=== PATIENT | female | born 1935 | race Caucasian/White ===

== ENCOUNTER 2016-05-12 19:57 | Inpatient (IN) | payer MEDICARE ==
[2016-05-12] VITALS (8 sets, daily range): BP systolic 89–96; BP diastolic 52–58; PULSE 67–103; TEMP 100.6–101.3; O2SAT 93–100
[~2016-05-12] VITALS: Ht 167.6 cm; Wt 85.2 kg
[~2016-05-12 19:57] MED LIST: CARB200 PO; CHLO.12%30; CLON.5 PO; EFFE75CA PO; ESCI20TA PO; LAMI25TA3 PO; LORTA5 PO; METO50CR PO; MIRTA15 PO; OMEP20TA PO; PANT20 PO; PRAV80 PO; REME30TA PO; TRAZ100 PO
[2016-05-12] MEDS ORDERED: SODIUM CHLOR 0.9% 1000 ML INJ 1,000 ML IV SCH (20:05)
[2016-05-12] MEDS ORDERED: SODIUM CHLORIDE 0.9% FLUSH 5 ML FLUSH IVF PRN (20:15)
[2016-05-12] MEDS ORDERED: PANTOPRAZOLE INJ 80 MG in SODIUM CHLORIDE 0.9% INJ 35 ML IV ONE (20:15)
--- NOTE | 2016-05-12 20:17 | PD ---
HPI Chief Complaint: Altered Mental Status Time Seen by Provider: 20:03 Travel History International Travel<30 days: No Contact w/Intl Traveler<30days: No Traveled to known affect area: No History of Present Illness HPI 80-year-old female with history of psychiatric problems, diabetes, GERD, presents to the ER today brought in by EMS because her psychiatric clinic noted that she had missed an appointment, sensitivity to check on her and she was found unresponsive with coffee-ground emesis on her shirt and around her mouth and nose. She was intubated for airway protection. She could not give us any further history. Modifying Factors: None Associated Signs & Symptoms: Coffee-ground emesis, unresponsive, intubated Risk Factors: None PFSH Past Medical History Arthritis: Yes Anxiety: Yes Depression: Yes Cancer: No Cardiovascular Problems: No High Cholesterol: Yes Chest Pain: No Cerebrovascular Accident: No Diabetes: No (Per patient) Endocrine: No GERD: Yes Genitourinary: No (hx of incontinence) Headaches: No Hypertension: Yes Neurologic: No Psychiatric: Yes (depression with suicide attempts) Reproductive: No Respiratory: No Migraines: No Seizures: No Past Surgical History Abdominal Surgery: Yes (HYST, APPENDIX) Appendectomy: Yes Cardiac Surgery: No Gynecologic Surgery: Yes (HYST) Oral Surgery: Yes (TONSILS) Thoracic Surgery: No Social History Alcohol Use: No Tobacco Use: No Substance Use: No Allergies-Medications (Allergen,Severity, Reaction): Coded Allergies: No Known Allergies (Verified , 01/03/16) Reported Meds & Prescriptions Reported Meds & Active Scripts Active Pravastatin Sodium (Pravastatin Sod) 80 Mg Tab 80 Mg PO DAILY Protonix (Pantoprazole Sodium) 20 Mg Tab 20 Mg PO DAILY Mirtazapine 15 Mg Tab 30 Mg PO HS Metoprolol Succinate ER 50 mg (Metoprolol Succinate) 50 Mg Tab 50 Mg PO DAILY Escitalopram Oxalate 20 Mg Tab 20 Mg PO DAILY Klonopin (Clonazepam) 0.5 Mg Tab 0.5 Mg PO HS Tegretol 200 Mg Tab (Carbamazepine) 200 Mg Tab 200 Mg PO HS Reported Peridex Oral Rinse (Chlorhexidine Gluconate) 0.12 % Felicitas DIRECTED Lamictal (Lamotrigine) 25 Mg Tab 25 Mg PO DAILY Pravastatin Sodium (Pravastatin Sod) 80 Mg Tab 80 Mg PO DAILY Metoprolol Succinate ER 50 mg (Metoprolol Succinate) 50 Mg Tab 50 Mg PO DAILY Trazodone Hcl (Trazodone HCl) 100 Mg Tab 200 Mg PO HS Omeprazole 20 mg (Omeprazole) 20 Mg Tab 20 Mg PO DAILY 30 Minutes before a meal Remeron 30 mg (Mirtazapine) 30 Mg Tab 30 Mg PO HS Effexor Xr (Venlafaxine HCl) 75 Mg Cap 75 Mg PO DAILY [place] 5-325 mg (Hydrocodone-Acetaminophen 5-325 mg) 1 Tab 1 Tab PO Q6H PRN Klonopin (Clonazepam) 0.5 Mg Tab 0.5 Mg PO HS Review of Systems ROS Limitations: Intubated (unable to obtain further history), Altered Mental Status Physical Exam Narrative GENERAL: Well-nourished, well-developed elderly white female patient who is obtunded, intubated, coffee ground emesis notable on her shirt and around her lips. SKIN: Warm and dry. HEAD: Normocephalic. EYES: No scleral icterus. No injection or drainage. NECK: Supple, trachea midline. CARDIOVASCULAR: Regular rate and rhythm without murmurs, gallops, or rubs. RESPIRATORY: Breath sounds equal bilaterally. No accessory muscle use. GASTROINTESTINAL: Abdomen soft, nondistended. MUSCULOSKELETAL: No cyanosis, or edema. BACK: Nontender without obvious deformity. No CVA tenderness. Neuro: Patient is unresponsive to painful stimuli, intubated. No gag reflex. Pupils are round, equal, small, poorly responsive to light bilaterally. Face is symmetrical. Data Data Last Documented VS Vital Signs Date Time Temp Pulse Resp B/P Pulse Ox O2 Delivery O2 Flow Rate FiO2 05/12/16 20:23 101.3 101 96/58 98 05/12/16 20:08 Ventilator 05/12/16 19:55 100 Orders Complete Blood Count With Diff (05/12/16 20:05) Comprehensive Metabolic Panel (05/12/16 20:05) Lipase (05/12/16 20:05) Ammonia (05/12/16 20:05) Prothrombin Time / Inr (Pt) (05/12/16 20:05) Act Partial Throm Time (Ptt) (05/12/16 20:05) Urinalysis - C+S If Indicated (05/12/16 20:05) Type And Screen (05/12/16 20:05) Chest, Single Ap (05/12/16 20:05) Ecg Monitoring (05/12/16 20:05) Iv Access Insert/Monitor (05/12/16 20:05) Ng Gastric Tube Insert/Monitor (05/12/16 20:05) Oximetry (05/12/16 20:05) Urinary Catheter Insert/Apply (05/12/16 20:05) Sodium Chlor 0.9% 1000 Ml Inj (Ns 1000 M (05/12/16 20:05) Sodium Chloride 0.9% Flush (Ns Flush) (05/12/16 20:15) Pantoprazole Inj (Protonix Inj) (05/12/16 20:15) Pantoprazole Inj (Protonix Inj) (05/12/16 20:15) Ct Brain W/O Iv Contrast(Rout) (05/12/16 20:46) Sodium Chlor 0.9% 1000 Ml Inj (Ns 1000 M (05/12/16 21:00) Admit Order (Ed Use Only) (05/12/16 21:02) Labs Laboratory Tests Test 05/12/16 05/12/16 20:00 20:10 White Blood Count 10.2 TH/MM3 Red Blood Count 4.73 MIL/MM3 Hemoglobin 12.3 GM/DL Hematocrit 38.6 % Mean Corpuscular Volume 81.6 FL Mean Corpuscular Hemoglobin 26.0 PG Mean Corpuscular Hemoglobin 31.8 % Concent Red Cell Distribution Width 16.4 % Platelet Count 178 TH/MM3 Mean Platelet Volume 9.4 FL Neutrophils (%) (Auto) 89.9 % Lymphocytes (%) (Auto) 3.1 % Monocytes (%) (Auto) 6.8 % Eosinophils (%) (Auto) 0.0 % Basophils (%) (Auto) 0.2 % Neutrophils # (Auto) 9.2 TH/MM3 Lymphocytes # (Auto) 0.3 TH/MM3 Monocytes # (Auto) 0.7 TH/MM3 Eosinophils # (Auto) 0.0 TH/MM3 Basophils # (Auto) 0.0 TH/MM3 CBC Comment DIFF FINAL Differential Comment Prothrombin Time 10.4 SEC Prothromb Time International 0.9 RATIO Ratio Activated Partial 23.4 SEC Thromboplast Time Ammonia 17 MCMOL/L Blood Type AB POSITIVE Antibody Screen NEGATIVE Blood Bank Comment Urine Color YELLOW Urine Turbidity CLEAR Urine pH 5.5 Urine Specific [place] 1.015 Urine Protein NEG mg/dL Urine Glucose (UA) NEG mg/dL Urine Ketones NEG mg/dL Urine Occult Blood NEG Urine Nitrite NEG Urine Bilirubin NEG Urine Urobilinogen LESS THAN 2.0 MG/DL Urine Leukocyte Esterase NEG Urine WBC LESS THAN 1 /hpf Urine Squamous Epithelial <1 /hpf Cells Urine Mucus FEW /lpf Microscopic Urinalysis Comment CULT NOT INDICATED MDM Medical Decision Making Medical Screen Exam Complete: Yes Emergency Medical Condition: Yes Medical Record Reviewed: Yes Interpretation(s) EKG shows normal sinus rhythm at a rate of 99 bpm with no signs of acute ST-T changes. Last [address] 05/12/162045 Signed Impressions: Service Date/Time: Thursday, May 12, 2016 21:05 - CONCLUSION: Negative noncontrast head CT. Finn Mendez MD Chest X-Ray 05/12/162004 Signed Impressions: Service Date/Time: Thursday, May 12, 2016 20:19 - CONCLUSION: Patchy atelectasis/infiltrate throughout the right lung and mild atelectasis of the left lung base. Appropriate position of the endotracheal tube tip. Finn Mendez MD Laboratory Tests Test 05/12/16 05/12/16 20:00 20:10 Mean Corpuscular Hemoglobin 26.0 PG (27.0-34.0) Mean Corpuscular Hemoglobin 31.8 % Concent (32.0-36.0) Neutrophils (%) (Auto) 89.9 % (16.0-70.0) Lymphocytes (%) (Auto) 3.1 % (9.0-44.0) Neutrophils # (Auto) 9.2 TH/MM3 (1.8-7.7) Lymphocytes # (Auto) 0.3 TH/MM3 (1.0-4.8) Activated Partial 23.4 SEC Thromboplast Time (24.3-30.1) Urine Mucus FEW /lpf (OCC) Differential Diagnosis Coffee-ground emesis, unresponsive, intubatedGI bleed versus coagulopathy versus peptic ulcer Narrative Course Patient had been intubated by EMS. Chest x-ray ordered to confirm ET tube. She was given IV fluids in the ER. Hemoccult was done on vomitus and it is Hemoccult positive. IV Protonix was given in the ER. Her H&H is stable. At this point, case is discussed with Dr. David for admission. Critical Care Narrative Aggregate critical care time was 30 minutes. Time to perform other separately billable procedures was not included in the critical care time. My time did not include minutes spent treating any other patients simultaneously or on activities that did not directly contribute to the patient's treatment. The services I provided to this patient were to treat and/or prevent clinically significant deterioration that could result in: Worsening GI bleed, cardiopulmonary arrest, I provided critical care services requiring my management, as noted below: Chart data review, documentation time, medication orders and management, vital sign assessments/reviewing monitor data, ordering and reviewing lab tests, ordering and interpreting/reviewing x-rays and diagnostic studies, care of the patient and discussion of the patient with the admitting physicians. HemaPrompt Point of Care Internal Pos. & Neg. Controls: Passed Gastric Specimen Occult Blood: Positive Diagnosis Primary Impression: GI bleeding Additional Impression: Endotracheally intubated Admitting Information Admitting Physician Requests: Admit Chanel Park MD May 12, 2016 20:17
[2016-05-12] MEDS: PANTOPRAZOLE INJ 80 MG in SODIUM CHLORIDE 0.9% INJ 100 ML IV SCH (20:28)
[2016-05-12 20:29] LABS: AUTOMATED NEUTROPHIL # 9.2 TH/MM3 (1.8-7.7); BASOPHIL % 0.2 % (0.0-2.0); HEMATOCRIT 38.6 % (35.0-46.0); HEMO FLAGS DIFF FINAL; LYMPH % 3.1 % (9.0-44.0); LYMPHOCYTE # 0.3 TH/MM3 (1.0-4.8); MEAN CELL VOLUME 81.6 FL (80.0-100.0); MEAN CORPUSCULAR HGB CONC 31.8 % (32.0-36.0); MONO % 6.8 % (0.0-8.0); NEUT % 89.9 % (16.0-70.0); PLATELET COUNT 178 TH/MM3 (150-450); RED BLOOD COUNT 4.73 MIL/MM3 (4.00-5.30); RED CELL DISTRIBUTION WIDTH 16.4 % (11.6-17.2); WHITE BLOOD COUNT 10.2 TH/MM3 (4.0-11.0)
[2016-05-12 20:37] LABS: BLOOD, URINE NEG (NEG); COMMENT (UR) CULT NOT INDICATED; CULTURE IF INDICATED CULT NOT INDICATED; GLUCOSE,URINE NEG (NEG); KETONE, URINE NEG (NEG); MUCUS URINE FEW /lpf (OCC); NITRITE,URINE NEG (NEG); PH, URINE 5.5 (5.0-8.5); SQUAMOUS EPITHELIAL CELL URINE <1 /hpf (0-5); URINE COLOR YELLOW (YELLW/STRAW)
--- NOTE | 2016-05-12 20:45 | RADRPT ---
EXAM DATE/TIME: 05/12/2016 20:19 [facility] COMPARISON: CHEST SINGLE AP, August 10, 2014, 4:01. INDICATIONS : Post intubation. MEDICAL HISTORY : Hypertension. Gastroesophageal reflux disease. SURGICAL HISTORY : None. ENCOUNTER: Initial ACUITY: 1 day PAIN SCORE: Non-responsive. LOCATION: Bilateral chest FINDINGS: Lung volumes are small. There is mild patchy atelectasis/infiltrate throughout the right lung. Mild a telectasis seen at the left lung base. No large effusion. No pneumothorax. Heart size stable, within normal limits. Endotracheal tube tip is about 3.2 cm above the mercedez. CONCLUSION: Patchy atelectasis/infiltrate throughout the right lung and mild atelectasis of the left lung base. A ppropriate position of the endotracheal tube tip. Finn Mendez MD on May 12, 2016 at 20:43 Board Certified Radiologist. This report was verified electronically.
[2016-05-12 20:51] LABS: APTT (PATIENT) 23.4 SEC (24.3-30.1); INTERNATIONAL NORMALIZED RATIO 0.9 RATIO; PROTHROMBIN TIME - PATIENT 10.4 SEC (9.8-11.6)
[2016-05-12] MEDS ORDERED: SODIUM CHLOR 0.9% 1000 ML INJ 1,000 ML IV ONE ×3 (21:00→22:15)
--- NOTE | 2016-05-12 21:16 | RADRPT ---
EXAM DATE/TIME: 05/12/2016 21:05 [facility] COMPARISON: CT BRAIN W/O CONTRAST, August 06, 2014, 12:31. INDICATIONS : Altered mental status; unresponsive; status-post intubation. RADIATION DOSE: 48.36 CTDIvol (mGy) MEDICAL HISTORY : Non-responsive. SURGICAL HISTORY : Non-responsive. ENCOUNTER: Initial ACUITY: 1 day PAIN SCALE: Non-responsive LOCATION: cranial TECHNIQUE: Multiple contiguous axial images were obtained of the head. Using automated exposure control and adj ustment of the mA and/or kV according to patient size, radiation dose was kept as low as reasonably a chievable to obtain optimal diagnostic quality images. FINDINGS: CEREBRUM: The ventricles are normal for age. No evidence of midline shift, mass lesion, hemorrhage or acute in farction. No extra-axial fluid collections are seen. POSTERIOR FOSSA: The cerebellum and brainstem are intact. The 4th ventricle is midline. The cerebellopontine angle i s unremarkable. EXTRACRANIAL: The visualized portion of the orbits is intact. SKULL: The calvaria is intact. No evidence of skull fracture. CONCLUSION: Negative noncontrast head CT. Finn Mendez MD on May 12, 2016 at 21:13 Board Certified Radiologist. This report was verified electronically.
[2016-05-12 21:47] LABS: ALT (GPT) 18 U/L (10-53); ANION GAP 8 MEQ/L (5-15); AST (GOT) 12 U/L (15-37); BICARBONATE 24.4 MEQ/L (21.0-32.0); BLOOD UREA NITROGEN 43 MG/DL (7-18); CHLORIDE 110 MEQ/L (98-107); GLOMERULAR FILTRATION RATE 21 ML/MIN (>89); POTASSIUM 5.1 MEQ/L (3.5-5.1); SODIUM (NA) 142 MEQ/L (136-145)
[2016-05-12 21:50] LABS: ALKALINE PHOSPHATASE 61 U/L (45-117); TOTAL BILIRUBIN ADULT 0.6 MG/DL (0.2-1.0)
[2016-05-12] MEDS: SODIUM CHLOR 0.9% 1000 ML INJ 1,000 ML IV SCH (22:05)
--- NOTE | 2016-05-12 22:09 | HHI.HP ---
HPI Service Critical Care Medicine Primary Care Physician Unknown Admission Diagnosis GI bleed/intubated/altered mental status Diagnosis: Travel History International Travel<30 Days: No Contact w/Intl Traveler <30 Da: No Traveled to Known Affected Are: No History of Present Illness 80-year-old female with history of psychiatric problems and previous attempt of overdose, severe depressions with a first admission to psychiatry at her 20s, diabetes, GERD, presents to the ER brought in by EMS because she had missed an appointment and her psychiatrist was concerned and sent EMS to evaluate her at home. She was found unresponsive with coffee-ground emesis on her shirt and around her mouth and nose. She was intubated for airway protection by EMS and is admitted to ICU now. Review of Systems ROS Unable to obtain patient is sedated and intubated Past Family Social History Allergies: Coded Allergies: No Known Allergies (Verified , 01/03/16) Past Medical History Depressions severe Hypertension Dyslipidemia GERD Diabetes Past Surgical History Unable to obtain patient is sedated and intubated Reported Medications Reported Meds & Active Scripts Active Pravastatin Sodium (Pravastatin Sod) 80 Mg Tab 80 Mg PO DAILY Protonix (Pantoprazole Sodium) 20 Mg Tab 20 Mg PO DAILY Mirtazapine 15 Mg Tab 30 Mg PO HS Metoprolol Succinate ER 50 mg (Metoprolol Succinate) 50 Mg Tab 50 Mg PO DAILY Escitalopram Oxalate 20 Mg Tab 20 Mg PO DAILY Klonopin (Clonazepam) 0.5 Mg Tab 0.5 Mg PO HS Tegretol 200 Mg Tab (Carbamazepine) 200 Mg Tab 200 Mg PO HS Reported Peridex Oral Rinse (Chlorhexidine Gluconate) 0.12 % Felicitas DIRECTED Lamictal (Lamotrigine) 25 Mg Tab 25 Mg PO DAILY Pravastatin Sodium (Pravastatin Sod) 80 Mg Tab 80 Mg PO DAILY Metoprolol Succinate ER 50 mg (Metoprolol Succinate) 50 Mg Tab 50 Mg PO DAILY Trazodone Hcl (Trazodone HCl) 100 Mg Tab 200 Mg PO HS Omeprazole 20 mg (Omeprazole) 20 Mg Tab 20 Mg PO DAILY 30 Minutes before a meal Remeron 30 mg (Mirtazapine) 30 Mg Tab 30 Mg PO HS Effexor Xr (Venlafaxine HCl) 75 Mg Cap 75 Mg PO DAILY [place] 5-325 mg (Hydrocodone-Acetaminophen 5-325 mg) 1 Tab 1 Tab PO Q6H PRN Klonopin (Clonazepam) 0.5 Mg Tab 0.5 Mg PO HS Active Ordered Medications Current Medications Medications (Trade) Dose Ordered Sig/Lenny Route PRN Reason Start Time Stop Time Status Last Admin Dose Admin Pantoprazole Sodium 80 mg/ Sodium Chloride 100 ml @ 10 mls/hr Q10H IV 05/12/16 20:15 05/12/16 20:28 Sodium Chloride (NS 1000 ml Inj) 1,000 ml @ 84 mls/hr [id number] IV 05/12/16 22:05 IV Flush (NS Flush) 2 ml UNSCH PRN IV FLUSH FLUSH AFTER USING IV ACCESS 05/12/16 22:15 IV Flush (NS Flush) 2 ml BID IV FLUSH 05/13/16 09:00 Acetaminophen (Tylenol) 650 mg Q6H PRN PO PAIN 1-10 AND/OR FEVER >101F 05/12/16 22:15 Morphine Sulfate (Morphine Inj) 2 mg Q2H PRN IV PAIN SCALE 6 TO 10 05/12/16 22:15 Pantoprazole Sodium (Protonix Inj) 40 mg Q12H IV 05/12/16 23:00 Lorazepam (Ativan Inj) 1 mg Q1H PRN IV Agitation/Sedation 05/12/16 22:15 Ondansetron HCl (Zofran Inj) 4 mg Q6H PRN IV NAUSEA OR VOMITING 05/12/16 22:15 Metoclopramide HCl (Reglan Inj) 10 mg Q6H PRN IV NAUSEA OR VOMITING 05/12/16 22:15 Docusate Sodium (Colace Liq) 100 mg Q12H G-TUBE 05/12/16 23:00 Miscellaneous Information 1 [id number] 05/12/16 22:15 Chlorhexidine Gluconate (Chlorhexidine 2% Cloth) 3 pack Taper DAILY@04 TOP 05/13/16 04:00 05/09/17 03:59 Chlorhexidine Gluconate 3 pack 3 pack UNSCH PRN TOP HYGIENIC CARE 05/12/16 22:15 Propofol 100 ml @ 0 mls/hr TITRATE IV 05/12/16 22:15 Sodium Chloride 1,000 ml @ 999 mls/hr BOLUS ONCE IV 05/12/16 22:15 05/12/16 23:15 Sodium Chloride (NS 1000 ml Inj) 1,000 ml @ 999 mls/hr BOLUS ONCE IV 05/12/16 22:15 05/12/16 23:15 Family History Unable to obtain Social History Unable to obtain patient is sedated and intubated Physical Exam Vital Signs Vital Signs Date Time Temp Pulse Resp B/P Pulse Ox O2 Delivery O2 Flow Rate FiO2 05/12/16 21:23 101.1 103 91/52 93 05/12/16 21:05 100 100 05/12/16 20:23 101.3 101 96/58 98 05/12/16 20:08 95 Ventilator 05/12/16 20:02 96 05/12/16 19:59 67 89/55 05/12/16 19:55 96 100 05/12/16 19:55 96 100 Physical Exam GENERAL: Well-nourished, well-developed patient. SKIN: Warm and dry. HEAD: Normocephalic. EYES: No scleral icterus. No injection or drainage. NECK: Supple, trachea midline. No JVD or lymphadenopathy. CARDIOVASCULAR: Regular rate and rhythm without murmurs, gallops, or rubs. RESPIRATORY: Breath sounds equal bilaterally. No accessory muscle use. GASTROINTESTINAL: Abdomen soft, non-tender, nondistended. MUSCULOSKELETAL: No cyanosis, or edema. BACK: Nontender without obvious deformity. No CVA tenderness. Laboratory Laboratory Tests Test 05/12/16 05/12/16 20:00 20:10 White Blood Count 10.2 Red Blood Count 4.73 Hemoglobin 12.3 Hematocrit 38.6 Mean Corpuscular Volume 81.6 Mean Corpuscular Hemoglobin 26.0 Mean Corpuscular Hemoglobin 31.8 Concent Red Cell Distribution Width 16.4 Platelet Count 178 Mean Platelet Volume 9.4 Neutrophils (%) (Auto) 89.9 Lymphocytes (%) (Auto) 3.1 Monocytes (%) (Auto) 6.8 Eosinophils (%) (Auto) 0.0 Basophils (%) (Auto) 0.2 Neutrophils # (Auto) 9.2 Lymphocytes # (Auto) 0.3 Monocytes # (Auto) 0.7 Eosinophils # (Auto) 0.0 Basophils # (Auto) 0.0 CBC Comment DIFF FINAL Differential Comment Prothrombin Time 10.4 Prothromb Time International 0.9 Ratio Activated Partial 23.4 Thromboplast Time Sodium Level 142 Potassium Level 5.1 Chloride Level 110 Carbon Dioxide Level 24.4 Anion Gap 8 Blood Urea Nitrogen 43 Creatinine 2.26 Estimat Glomerular Filtration 21 Rate Random Glucose 139 Calcium Level 8.4 Total Bilirubin 0.6 Aspartate Amino Transf 12 (AST/SGOT) Alanine Aminotransferase 18 (ALT/SGPT) Alkaline Phosphatase 61 Ammonia 17 Total Protein 6.3 Albumin 3.3 Lipase 144 Blood Type AB POSITIVE Antibody Screen NEGATIVE Blood Bank Comment Urine Color YELLOW Urine Turbidity CLEAR Urine pH 5.5 Urine Specific [place] 1.015 Urine Protein NEG Urine Glucose (UA) NEG Urine Ketones NEG Urine Occult Blood NEG Urine Nitrite NEG Urine Bilirubin NEG Urine Urobilinogen LESS THAN 2.0 Urine Leukocyte Esterase NEG Urine WBC LESS THAN 1 Urine Squamous Epithelial <1 Cells Urine Mucus FEW Microscopic Urinalysis Comment CULT NOT INDICATED Result Diagram: 05/12/16199905/12/161999 Assessment and Plan Problem List: (1) Respiratory failure, acute ICD Code: J96.00 Status: Acute (2) Hypertension ICD Code: I10 Status: Acute (3) Dyslipidemia ICD Code: E78.5 Status: Acute (4) Intentional self poisoning Status: Acute (5) Depression ICD Code: F32.9 Status: Acute Assessment and Plan Respiratory failure - Intubated for airway protection - Continue mechanical ventilation - Attempt when neurologically improved - Elevated head of bed - albuterol ipratropium when necessary Hypertension - Hold home medications - Currently normotensive - Continue telemetry Depressions - Further per psychiatrist after extubation Intentional overdose - Monitor vital signs and electrolytes - Psychiatry evaluation after patient extubated Diabetes - Insulin sliding scale Coffee-ground emesis - Protonix IV twice a day - Monitor H&H DVT GI prophylaxis - Teds SCDs Protonix - No pharmacal DVT prophylaxis due to possible GI bleed Critical Care: The total critical care time was 35 minutes. Time to perform other separately billable procedures was not included in the critical care time. Rocco David MD May 12, 2016 22:09
[2016-05-12 22:12] LABS: BLOOD GAS BASE EXCESS -4.6 mmol/L (-2-2); BLOOD GAS HCO3 20 mmol/L (22-26); BLOOD GAS O2 HGB SATURATION 91 % (90-100); BLOOD GAS OXYGEN CONTENT 14.8 Vol % (12.0-20.0); BLOOD GAS PCO2 40 mmHg (38-42); BLOOD GAS PO2 85 mmHG (61-120); BLOOD GAS TOTAL HGB 11.5 G/DL (12.0-16.0); CRITICAL VALUE NO; DRAW SITE LT RADIAL; FIO2 100 %; NUMBER OF ARTERIAL PUNCTURES 1; OXYGEN DEVICE VENTILATOR; STAT YES; TEMP CORR TO 98.6; ULNAR PULSE PRESENT; VENT SETTINGS VAC16/500/PEEP5
[2016-05-12] MEDS ORDERED: CHLORHEXIDINE GLUCONATE 2 % 1 PACK (2 CLOTHS) TOP PRN (22:15)
[2016-05-12] MEDS ORDERED: LORazepam 2 MG/ML VIAL IV PRN (22:15)
[2016-05-12] MEDS ORDERED: MISCELLANEOUS NURSING INFORMATION XX SCH (22:15)
[2016-05-12] MEDS ORDERED: METOCLOPRAMIDE HCL 10 MG/2 ML VIAL IV PRN (22:15)
[2016-05-12] MEDS ORDERED: SODIUM CHLORIDE 0.9% FLUSH 5 ML FLUSH IV FLUSH PRN (22:15)
[2016-05-12] MEDS ORDERED: ONDANSETRON HCL 4 MG/2 ML VIAL IV PRN (22:15)
[2016-05-12] MEDS ORDERED: RESP: ALBUTEROL 2.5 MG/IPRATROPIUM 0.5 MG NEB (PRN) INH (22:15)
[2016-05-12] MEDS ORDERED: ACETAMINOPHEN 325 MG TAB PO PRN (22:15)
[2016-05-12] MEDS ORDERED: MORPHINE SULFATE 4 MG/ML INJ IV PRN (22:15)
[2016-05-12] MEDS ORDERED: PROPOFOL 1000 MG/100 ML INJ 100 ML IV SCH (22:15)
[2016-05-12] MEDS: DOCUSATE SODIUM 100 MG/10 ML UDC G-TUBE SCH (23:14)
[2016-05-12] MEDS: PANTOPRAZOLE SODIUM 40 MG VIAL IV SCH (23:14)
[2016-05-13] VITALS (18 sets, daily range): BP systolic 90–132; BP diastolic 53–67; PULSE 81–104; RESP 16; TEMP 98.6–100.9; O2SAT 91–99
[2016-05-13] MEDS: CHLORHEXIDINE GLUCONATE 2 % 1 PACK (2 CLOTHS) TOP SCH (04:00)
[2016-05-13] MEDS: PANTOPRAZOLE INJ 80 MG in SODIUM CHLORIDE 0.9% INJ 100 ML IV SCH (04:49)
[2016-05-13] MEDS: SODIUM CHLOR 0.9% 1000 ML INJ 1,000 ML IV SCH ×2 (04:50→22:29)
[2016-05-13 06:52] LABS: ALKALINE PHOSPHATASE 62 U/L (45-117); ALT (GPT) 20 U/L (10-53); ANION GAP 10 MEQ/L (5-15); AST (GOT) 39 U/L (15-37); BICARBONATE 20.8 MEQ/L (21.0-32.0); CHLORIDE 113 MEQ/L (98-107); GLOMERULAR FILTRATION RATE 24 ML/MIN (>89); SODIUM (NA) 144 MEQ/L (136-145); TOTAL BILIRUBIN ADULT 0.8 MG/DL (0.2-1.0)
[2016-05-13 06:56] LABS: BLOOD UREA NITROGEN 37 MG/DL (7-18)
[2016-05-13 06:59] LABS: POTASSIUM 6.6 MEQ/L (3.5-5.1)
[2016-05-13] MEDS ORDERED: SODIUM BICARBONATE 8.4% INJ 50 MEQ/50 ML SYR IV PUSH ONE (07:15)
[2016-05-13] MEDS ORDERED: DEXTROSE 50% IN WATER 50 ML VIAL(D50) IV PUSH ONE (07:15)
[2016-05-13] MEDS ORDERED: VANCOMYCIN INJ 1,000 MG in SODIUM CHLOR 0.9% 250 ML INJ 250 ML IV ONE (07:15)
[2016-05-13] MEDS ORDERED: INSULIN HUMAN REGULAR 1,000 UNITS/10 ML VIAL IV PUSH ONE (07:15)
[2016-05-13] MEDS ORDERED: GLUCAGON 1 MG/ML VIAL OTHER PRN (07:30)
[2016-05-13] MEDS ORDERED: DEXTROSE 50% IN WATER 50 ML VIAL(D50) IV PUSH PRN (07:30)
--- NOTE | 2016-05-13 07:36 | HHI.CCPN ---
Subjective Remarks/Hospital Course 80-year-old female with history of psychiatric problems and previous attempt of overdose, severe depressions with a first admission to psychiatry at her 20s, diabetes, GERD, presents to the ER brought in by EMS because she had missed an appointment and her psychiatrist was concerned and sent EMS to evaluate her at home. She was found unresponsive with coffee-ground emesis on her shirt and around her mouth and nose. She was intubated for airway protection by EMS and is admitted to ICU now. 05/13 Patient is intubated and sedated with Diprivan. Tmax 101.3. On Protonix drip for ? GI bleed. K 6.6 this morning with Cr: 2.0 from 2.26. Objective Vital Signs Date Time Temp Pulse Resp B/P Pulse Ox O2 Delivery O2 Flow Rate FiO2 05/13/16 06:00 81 05/13/16 04:15 96 50 05/13/16 04:00 100.3 16 110/58 05/12/16 20:08 Ventilator Result Diagram: 05/12/16199905/13/16 0503 Other Results Laboratory Tests Test 05/12/16 05/12/16 05/12/16 05/12/16 20:00 20:10 20:32 23:00 White Blood Count 10.2 TH/MM3 Red Blood Count 4.73 MIL/MM3 Hemoglobin 12.3 GM/DL Hematocrit 38.6 % Mean Corpuscular Volume 81.6 FL Mean Corpuscular Hemoglobin 26.0 PG Mean Corpuscular Hemoglobin 31.8 % Concent Red Cell Distribution Width 16.4 % Platelet Count 178 TH/MM3 Mean Platelet Volume 9.4 FL Neutrophils (%) (Auto) 89.9 % Lymphocytes (%) (Auto) 3.1 % Monocytes (%) (Auto) 6.8 % Eosinophils (%) (Auto) 0.0 % Basophils (%) (Auto) 0.2 % Neutrophils # (Auto) 9.2 TH/MM3 Lymphocytes # (Auto) 0.3 TH/MM3 Monocytes # (Auto) 0.7 TH/MM3 Eosinophils # (Auto) 0.0 TH/MM3 Basophils # (Auto) 0.0 TH/MM3 CBC Comment DIFF FINAL Differential Comment Prothrombin Time 10.4 SEC Prothromb Time International 0.9 RATIO Ratio Activated Partial 23.4 SEC Thromboplast Time Sodium Level 142 MEQ/L Potassium Level 5.1 MEQ/L Chloride Level 110 MEQ/L Carbon Dioxide Level 24.4 MEQ/L Anion Gap 8 MEQ/L Blood Urea Nitrogen 43 MG/DL Creatinine 2.26 MG/DL Estimat Glomerular Filtration 21 ML/MIN Rate Random Glucose 139 MG/DL Calcium Level 8.4 MG/DL Total Bilirubin 0.6 MG/DL Aspartate Amino Transf 12 U/L (AST/SGOT) Alanine Aminotransferase 18 U/L (ALT/SGPT) Alkaline Phosphatase 61 U/L Ammonia 17 MCMOL/L Total Protein 6.3 GM/DL Albumin 3.3 GM/DL Lipase 144 U/L Blood Type AB POSITIVE Antibody Screen NEGATIVE Blood Bank Comment Urine Color YELLOW Urine Turbidity CLEAR Urine pH 5.5 Urine Specific [place] 1.015 Urine Protein NEG mg/dL Urine Glucose (UA) NEG mg/dL Urine Ketones NEG mg/dL Urine Occult Blood NEG Urine Nitrite NEG Urine Bilirubin NEG Urine Urobilinogen LESS THAN 2.0 MG/DL Urine Leukocyte Esterase NEG Urine WBC LESS THAN 1 /hpf Urine Squamous Epithelial <1 /hpf Cells Urine Mucus FEW /lpf Microscopic Urinalysis Comment CULT NOT INDICATED Blood Gas Puncture Site LT RADIAL Blood Gas Patient Temperature 98.6 Blood Gas HCO3 20 mmol/L Blood Gas Base Excess -4.6 mmol/L Blood Gas Oxygen Saturation 91 % Arterial Blood pH 7.33 Arterial Blood Partial 40 mmHg Pressure CO2 Arterial Blood Partial 85 mmHG Pressure O2 Arterial Blood Oxygen Content 14.8 Vol % Arterial Blood 2.0 % Carboxyhemoglobin Arterial Blood Methemoglobin 3.0 % Blood Gas Hemoglobin 11.5 G/DL Oxygen Delivery Device VENTILATOR Blood Gas Ventilator Setting [id number]/500/PEEP5 Blood Gas Inspired Oxygen 100 % Nasal Screen MRSA (PCR) NEGATIVE Test 05/13/16 05:03 Sodium Level 144 MEQ/L Potassium Level 6.6 MEQ/L Chloride Level 113 MEQ/L Carbon Dioxide Level 20.8 MEQ/L Anion Gap 10 MEQ/L Blood Urea Nitrogen 37 MG/DL Creatinine 2.03 MG/DL Estimat Glomerular Filtration 24 ML/MIN Rate Random Glucose 116 MG/DL Calcium Level 8.1 MG/DL Total Bilirubin 0.8 MG/DL Aspartate Amino Transf 39 U/L (AST/SGOT) Alanine Aminotransferase 20 U/L (ALT/SGPT) Alkaline Phosphatase 62 U/L Total Protein 6.3 GM/DL Albumin 3.1 GM/DL Imaging Last Impressions Head CT 05/12/162045 Signed Impressions: Service Date/Time: Thursday, May 12, 2016 21:05 - CONCLUSION: Negative noncontrast head CT. Finn Mendez MD Chest X-Ray 05/12/162004 Signed Impressions: Service Date/Time: Thursday, May 12, 2016 20:19 - CONCLUSION: Patchy atelectasis/infiltrate throughout the right lung and mild atelectasis of the left lung base. Appropriate position of the endotracheal tube tip. Finn Mendez MD Objective Remarks GENERAL: Well-nourished, well-developed patient sedated and intubated SKIN: Warm and dry. HEAD: Normocephalic. EYES: No scleral icterus. No injection or drainage. NECK: Supple, trachea midline. No JVD or lymphadenopathy. Orally intubated CARDIOVASCULAR: Regular rate and rhythm without murmurs, gallops, or rubs. RESPIRATORY: Breath sounds equal bilaterally. No accessory muscle use. GASTROINTESTINAL: Abdomen soft, non-tender, nondistended. MUSCULOSKELETAL: No cyanosis, or edema. BACK: Nontender without obvious deformity. No CVA tenderness. Neuro: Sedated, intubated A/P Problem List: (1) Respiratory failure, acute ICD Code: J96.00 Status: Acute (2) Hypertension ICD Code: I10 Status: Acute (3) Dyslipidemia ICD Code: E78.5 Status: Acute (4) Intentional self poisoning Status: Acute (5) Depression ICD Code: F32.9 Status: Acute Assessment and Plan VDRF Encephalopathy Aspiration pneumonia TUNG Hyperkalemia HTN ? GI bleed Intentional overdose Hx dyslipidemia DM GERD Plan Neuro: On Diprivan infusion for sedation, daily sedation vacation. Monitor neuro status. CT brain: No acute process. Ammonia level 17, check TSH and UDS. Psych eval once extubated. Pulm: Continue with vent support keep sat >92% Bronchodilators, ICU vent bundle. Elevated head of bed. Start CPAP trials once improved neurologically CV: Monitor HR and BP keep MAP>65mmHg. Check Lactic acid :Monitor renal function, I/O's, avoid nephrotoxins. Treat hyperkalemia with IV insulin 7units, 1 amp D50, [place] gluconate, Sodium bicarb. Repeat BMP Renal function improving with Cr: 2.0 from 2.26, continue with IVF- NS@ 84ml/hr GI: Keep NPO, d/c Protonix drip as patient is on Protonix 40mg IV Q12 as well. GI eval. Heme: Monitor CBC, coags ID: No cultures or abx given on arrival. Will Place on abx ( Zosyn, Vanco), adjust doses of abx per renal function. ID eval. Will check BC x 2 sets, sputum cx, check strep pneumonia and Legionella urinary Ag. Check nasal washing r/o Influenza. Endo: SSI if needed for glycemic control GI prophylaxis- on Protonix 40mg Q12 DVT prophylaxis- SCD, hold chemical AC prophylaxis for now given ? GI bleed. Critical Care: The total critical care time was 30 minutes. Time to perform other separately billable procedures was not included in the critical care time. Belem Mercer MD May 13, 2016 07:36
[2016-05-13] MEDS ORDERED: CALCIUM GLUCONATE INJ 1 GM in SODIUM CHLORIDE 0.9% INJ 100 ML IV ONE (08:00)
[2016-05-13 08:25] LABS: AMPHETAMINE, URINE NEG (NEG); BARBITURATES, URINE NEG (NEG); COCAINE, URINE NEG (NEG)
[2016-05-13] MEDS: PIPERACIL-TAZO 3.375 GM PREMIX 50 ML IV SCH ×2 (08:26→16:02)
[2016-05-13] MEDS: SODIUM CHLORIDE 0.9% FLUSH 5 ML FLUSH IV FLUSH SCH ×2 (08:26→20:42)
[2016-05-13 09:22] LABS: AUTOMATED NEUTROPHIL # 5.5 TH/MM3 (1.8-7.7); BASOPHIL % 0.3 % (0.0-2.0); EOSINOPHIL % 0.1 % (0.0-4.0); HEMATOCRIT 34.9 % (35.0-46.0); HEMO FLAGS DIFF FINAL; LYMPH % 11.9 % (9.0-44.0); LYMPHOCYTE # 0.8 TH/MM3 (1.0-4.8); MEAN CELL VOLUME 81.9 FL (80.0-100.0); MEAN CORPUSCULAR HEMOGLOBIN 25.5 PG (27.0-34.0); MEAN CORPUSCULAR HGB CONC 31.1 % (32.0-36.0); MONO % 1.9 % (0.0-8.0); NEUT % 85.8 % (16.0-70.0); PLATELET COUNT 156 TH/MM3 (150-450); RED BLOOD COUNT 4.26 MIL/MM3 (4.00-5.30); RED CELL DISTRIBUTION WIDTH 16.7 % (11.6-17.2); WHITE BLOOD COUNT 6.4 TH/MM3 (4.0-11.0)
--- NOTE | 2016-05-13 10:34 | PD.CONS ---
HPI History of Present Illness This is a 80 year old female with a hx of severe depression with drug overdose, who was brought to the ER for evaluation and treatment after she was found unresponsive with coffee ground emesis on her shirt and around her mouth and nose. She was intubated by EMS for airway protection and then admitted to the ICU for acute respiratory failure, hypertension, dyslipidemia, intentional self poisoning, coffee ground emesis and depression. GI was consulted for coffee ground emesis. The patient is sedated on the ventilator and cannot provide any history and therefore the history has been obtained from the EMR and nursing staff. The patient has an OGT to LIWS, but this is draining a small amount of clear secretions in tubing, nothing in canister. The nurse denies the patient having any stools. Her abdomen is distended with tympanic bowel sounds. She is currently on a protonix drip and her HH has gone from 12.3/38.6 to 10.9/34.9. PFSH Past Medical History Severe depression with past hx of drug overdose DM GERD Hyperlipidemia HTN Past Surgical History Unable to obtain Coded Allergies: No Known Allergies (Verified , 01/03/16) Medications Allergies Coded Allergies Type Severity Reaction Last Updated Verified No Known Allergies 01/03/16 Yes Active Scripts Medications Dose Route/Sig Days Date Category Dose Instructions Pravastatin Sodium (Pravastatin Sod) 80 Mg Tab 80 Mg PO DAILY 01/17/16 Rx Protonix (Pantoprazole Sodium) 20 Mg Tab 20 Mg PO DAILY 01/17/16 Rx Mirtazapine 15 Mg Tab 30 Mg PO HS 01/17/16 Rx Metoprolol Succinate ER 50 mg (Metoprolol Succinate) 50 Mg Tab 50 Mg PO DAILY 01/17/16 Rx Escitalopram Oxalate 20 Mg Tab 20 Mg PO DAILY 01/17/16 Rx Klonopin (Clonazepam) 0.5 Mg Tab 0.5 Mg PO HS 01/17/16 Rx Tegretol 200 Mg Tab (Carbamazepine) 200 Mg Tab 200 Mg PO HS 01/17/16 Rx Peridex Oral Rinse (Chlorhexidine Gluconate) 0.12 % Felicitas DIRECTED 01/03/16 Reported Lamictal (Lamotrigine) 25 Mg Tab 25 Mg PO DAILY 01/03/16 Reported Pravastatin Sodium (Pravastatin Sod) 80 Mg Tab 80 Mg PO DAILY 01/03/16 Reported Metoprolol Succinate ER 50 mg (Metoprolol Succinate) 50 Mg Tab 50 Mg PO DAILY 01/03/16 Reported Trazodone Hcl (Trazodone HCl) 100 Mg Tab 200 Mg PO HS 01/03/16 Reported Omeprazole 20 mg (Omeprazole) 20 Mg Tab 20 Mg PO DAILY 01/03/16 Reported 30 Minutes before a meal Remeron 30 mg (Mirtazapine) 30 Mg Tab 30 Mg PO HS 01/03/16 Reported Effexor Xr (Venlafaxine HCl) 75 Mg Cap 75 Mg PO DAILY 01/03/16 Reported [place] 5-325 mg (Hydrocodone-Acetaminophen 5-325 mg) 1 Tab 1 Tab PO Q6H PRN 01/03/16 Reported Klonopin (Clonazepam) 0.5 Mg Tab 0.5 Mg PO HS 01/03/16 Reported Family History Unable to obtain Social History Unable to obtain Review of Systems ROS Unable to obtain GI Exam Vitals I&O Vital Signs Date Time Temp Pulse Resp B/P Pulse Ox O2 Delivery O2 Flow Rate FiO2 05/13/16 06:00 81 05/13/16 04:15 96 50 05/13/16 04:00 84 05/13/16 04:00 50 05/13/16 04:00 100.3 84 16 110/58 96 05/13/16 02:00 89 05/13/16 01:04 99 100 05/13/16 00:00 100.2 92 16 108/55 99 05/13/16 00:00 92 05/13/16 00:00 100 05/12/16 22:30 99 100 05/12/16 22:30 100 100 05/12/16 22:24 100.6 95 91/52 96 05/12/16 21:23 101.1 103 91/52 93 05/12/16 21:05 100 100 05/12/16 20:23 101.3 101 96/58 98 05/12/16 20:08 95 Ventilator 05/12/16 20:02 96 05/12/16 19:59 67 89/55 05/12/16 19:55 96 100 05/12/16 19:55 96 100 I/O 05/12/16 05/12/16 05/12/16 05/13/16 05/13/16 05/13/16 07:00 15:00 23:00 07:00 15:00 23:00 Intake Total 599 ml Output Total 450 ml Balance 149 ml Intake Oral 0 ml IV Total 599 ml Output Urine Total 450 ml Gastric Drainage Total 0 ml # Bowel Movements 0 Imaging Last Impressions Head CT 05/12/162045 Signed Impressions: Service Date/Time: Thursday, May 12, 2016 21:05 - CONCLUSION: Negative noncontrast head CT. Finn Mendez MD Chest X-Ray 05/12/162004 Signed Impressions: Service Date/Time: Thursday, May 12, 2016 20:19 - CONCLUSION: Patchy atelectasis/infiltrate throughout the right lung and mild atelectasis of the left lung base. Appropriate position of the endotracheal tube tip. Finn Mendez MD Laboratory Test 05/12/16 05/12/16 05/12/16 05/12/16 20:00 20:10 20:32 23:00 White Blood Count 10.2 TH/MM3 Red Blood Count 4.73 MIL/MM3 Hemoglobin 12.3 GM/DL Hematocrit 38.6 % Mean Corpuscular Volume 81.6 FL Mean Corpuscular Hemoglobin 26.0 PG Mean Corpuscular Hemoglobin 31.8 % Concent Red Cell Distribution Width 16.4 % Platelet Count 178 TH/MM3 Mean Platelet Volume 9.4 FL Neutrophils (%) (Auto) 89.9 % Lymphocytes (%) (Auto) 3.1 % Monocytes (%) (Auto) 6.8 % Eosinophils (%) (Auto) 0.0 % Basophils (%) (Auto) 0.2 % Neutrophils # (Auto) 9.2 TH/MM3 Lymphocytes # (Auto) 0.3 TH/MM3 Monocytes # (Auto) 0.7 TH/MM3 Eosinophils # (Auto) 0.0 TH/MM3 Basophils # (Auto) 0.0 TH/MM3 CBC Comment DIFF FINAL Differential Comment Prothrombin Time 10.4 SEC Prothromb Time International 0.9 RATIO Ratio Activated Partial 23.4 SEC Thromboplast Time Sodium Level 142 MEQ/L Potassium Level 5.1 MEQ/L Chloride Level 110 MEQ/L Carbon Dioxide Level 24.4 MEQ/L Anion Gap 8 MEQ/L Blood Urea Nitrogen 43 MG/DL Creatinine 2.26 MG/DL Estimat Glomerular Filtration 21 ML/MIN Rate Random Glucose 139 MG/DL Calcium Level 8.4 MG/DL Total Bilirubin 0.6 MG/DL Aspartate Amino Transf 12 U/L (AST/SGOT) Alanine Aminotransferase 18 U/L (ALT/SGPT) Alkaline Phosphatase 61 U/L Ammonia 17 MCMOL/L Total Protein 6.3 GM/DL Albumin 3.3 GM/DL Lipase 144 U/L Blood Type AB POSITIVE Antibody Screen NEGATIVE Blood Bank Comment Urine Color YELLOW Urine Turbidity CLEAR Urine pH 5.5 Urine Specific [place] 1.015 Urine Protein NEG mg/dL Urine Glucose (UA) NEG mg/dL Urine Ketones NEG mg/dL Urine Occult Blood NEG Urine Nitrite NEG Urine Bilirubin NEG Urine Urobilinogen LESS THAN 2.0 MG/DL Urine Leukocyte Esterase NEG Urine WBC LESS THAN 1 /hpf Urine Squamous Epithelial <1 /hpf Cells Urine Mucus FEW /lpf Microscopic Urinalysis Comment CULT NOT INDICATED Urine Opiates Screen POS Urine Barbiturates Screen NEG Urine Amphetamines Screen NEG Urine Benzodiazepines Screen NEG Urine Cocaine Screen NEG Urine Cannabinoids Screen NEG Blood Gas Puncture Site LT RADIAL Blood Gas Patient Temperature 98.6 Blood Gas HCO3 20 mmol/L Blood Gas Base Excess -4.6 mmol/L Blood Gas Oxygen Saturation 91 % Arterial Blood pH 7.33 Arterial Blood Partial 40 mmHg Pressure CO2 Arterial Blood Partial 85 mmHG Pressure O2 Arterial Blood Oxygen Content 14.8 Vol % Arterial Blood 2.0 % Carboxyhemoglobin Arterial Blood Methemoglobin 3.0 % Blood Gas Hemoglobin 11.5 G/DL Oxygen Delivery Device VENTILATOR Blood Gas Ventilator Setting [id number]/500/PEEP5 Blood Gas Inspired Oxygen 100 % Nasal Screen MRSA (PCR) NEGATIVE Test 05/13/16 05/13/16 05:03 08:56 Sodium Level 144 MEQ/L Potassium Level 6.6 MEQ/L Chloride Level 113 MEQ/L Carbon Dioxide Level 20.8 MEQ/L Anion Gap 10 MEQ/L Blood Urea Nitrogen 37 MG/DL Creatinine 2.03 MG/DL Estimat Glomerular Filtration 24 ML/MIN Rate Random Glucose 116 MG/DL Calcium Level 8.1 MG/DL Total Bilirubin 0.8 MG/DL Aspartate Amino Transf 39 U/L (AST/SGOT) Alanine Aminotransferase 20 U/L (ALT/SGPT) Alkaline Phosphatase 62 U/L Total Protein 6.3 GM/DL Albumin 3.1 GM/DL Thyroid Stimulating Hormone 0.768 uIU/ML 3rd Gen White Blood Count 6.4 TH/MM3 Red Blood Count 4.26 MIL/MM3 Hemoglobin 10.9 GM/DL Hematocrit 34.9 % Mean Corpuscular Volume 81.9 FL Mean Corpuscular Hemoglobin 25.5 PG Mean Corpuscular Hemoglobin 31.1 % Concent Red Cell Distribution Width 16.7 % Platelet Count 156 TH/MM3 Mean Platelet Volume 9.4 FL Neutrophils (%) (Auto) 85.8 % Lymphocytes (%) (Auto) 11.9 % Monocytes (%) (Auto) 1.9 % Eosinophils (%) (Auto) 0.1 % Basophils (%) (Auto) 0.3 % Neutrophils # (Auto) 5.5 TH/MM3 Lymphocytes # (Auto) 0.8 TH/MM3 Monocytes # (Auto) 0.1 TH/MM3 Eosinophils # (Auto) 0.0 TH/MM3 Basophils # (Auto) 0.0 TH/MM3 CBC Comment DIFF FINAL Differential Comment Date/Time Procedure Status Source Growth 05/13/16 08:56 Aerobic Blood Culture Received Blood Peripheral Pending 05/13/16 08:56 Anaerobic Blood Culture Received Blood Peripheral Pending 05/13/16 08:10 Gram Stain Received Sputum Endotracheal Pending 05/13/16 08:10 Sputum Culture Received Sputum Endotracheal Pending 05/13/16 08:05 Legionella Antigen - Final Complete Urine Catheterized Urine PRESUMPTIVE NEGATIVE FOR LEGIONELLA P... 05/13/16 08:05 Streptococcus pneumoniae Antigen (M - Final Complete Urine Catheterized Urine PRESUMPTIVE NEGATIVE FOR STREPTOCOCCU... Physical Examination HEENT: Normocephalic; atraumatic; no jaundice. CHEST: CTA CARDIAC: RRR ABDOMEN: Distended, tympanic bowel sounds, no hepatosplenomegaly; bowel sounds are present in all four quadrants. EXTREMITIES: Genealized edema. SKIN: Normal; no rash; no jaundice. 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 Found unresponsive with coffee grounds material on shirt and around face and nose. OGT to LIWS- clear drainage in tubing, none in canister. HH 12.3/38.6---> 10.9/34.9. Protonix gtt. - Abdominal distention. Pt with tympanic abdomen, hypoactive bowel sounds, no bm. Will get KUB. Keep OGT to LIWS. - Acute respiratory failure, Vent per CCM - Hyperkalemia, correction per CCM - Drug overdose with hx of severe depression and past OD. - DM, Hyperlipidemia, HTN per CCM PLAN: - NPO - NGT to LIWS - Protonix Gtt - Monitor HH - Transfuse as necessary - KUB now - Notify GI of active bleeding - Supportive care - Further recommendations to follow based on results of above - Pt seen and examined by Dr. Vallejo and myself and this note is written on his behalf Yoanna Masterson May 13, 2016 10:34
[2016-05-13] MEDS: RESP: ALBUTEROL 2.5 MG/IPRATROPIUM 0.5 MG NEB (SCH) NEB ×3 (10:48→20:26)
[2016-05-13 10:56] LABS: BICARBONATE 22.6 MEQ/L (21.0-32.0); POTASSIUM 4.4 MEQ/L (3.5-5.1)
[2016-05-13] MEDS ORDERED: Vancomycin Consult Pharmacy 1 EA OTHER SCH (11:15)
[2016-05-13] MEDS: PANTOPRAZOLE SODIUM 40 MG VIAL IV SCH ×2 (11:32→22:31)
[2016-05-13] MEDS: DOCUSATE SODIUM 100 MG/10 ML UDC G-TUBE SCH ×2 (11:32→22:31)
[2016-05-13] MEDS: INSULIN NovoLIN REGULAR SUPPLEMENTAL SCALE SQ SCH ×2 (11:33→18:00)
--- NOTE | 2016-05-13 12:03 | RADRPT ---
EXAM DATE/TIME: 05/13/2016 10:51 [facility] COMPARISON: No previous studies available for comparison. INDICATIONS : Abdomen distention. MEDICAL HISTORY : Hypertension. Gastroesophageal reflux disease SURGICAL HISTORY : None. ENCOUNTER: Initial ACUITY: 1 day PAIN SCORE: Non-responsive. LOCATION: Bilateral chest FINDINGS: Supine view of the abdomen was performed. The abdominal bowel gas pattern is normal. No abnormal ma sses, calcifications, or organomegaly is seen. The osseous structures are unremarkable. CONCLUSION: Benign abdomen. No evidence of obstruction David Luke MD on May 13, 2016 at 12:00 Board Certified Radiologist. This report was verified electronically.
[2016-05-13] MEDS ORDERED: VANCOMYCIN INJ 750 MG in SODIUM CHLOR 0.9% 250 ML INJ 250 ML IV ONE (13:00)
--- NOTE | 2016-05-13 15:33 | PD.CONS ---
History of Present Illness Service Infectious disease Consult Requested By Dr Shahriar Mercer Reason for Consult Evaluate patient with fever and pneumonia Primary Care Physician Unknown Diagnoses: History of Present Illness Patient seen and examined. Records reviewed. Patient is an 80-year-old female with known history of psychiatric problem, has had multiple admissions for major depression, and suicide attempt with drug overdose, brought into the hospital after she was found unresponsive. She apparently had an appointment in the psychiatric clinic, and her psychiatrist was concerned so she had requested that she be checked at home. When she was found she was on the floor, unresponsive, and there was some coffee ground emesis on her shirt and around her mouth and note. She was intubated and brought into the hospital for further evaluation and treatment. Since admission she has had fevers. Her blood pressure is okay. There was no other history that could be obtained. Her chest x-ray showed some patchy infiltrates on the right side as well as left base infiltrate or atelectasis. Infectious disease consultation has been requested to evaluate the patient. Review of Systems ROS Limitations: Clinical Condition, Intubated Past Family Social History Allergies: Coded Allergies: No Known Allergies (Verified , 01/03/16) Past Medical History Depressions severe - has had ECT treatment Previous suicide attempts, drug overdose Hypertension Dyslipidemia GERD Diabetes Past Surgical History Tonsillectomy Appendectomy Hysterectomy She has a long scar in her lower abdomen that looks like she might have had abdominoplasty Active Ordered Medications Tylenol Albuterol Colace Insulin Ativan Reglan Morphine Zofran Protonix Zosyn Diprivan Vancomycin 1 dose today Social History No smoking history No alcohol abuse No drug use From previous record apparently she is and has 2 sons, has 1 brother and 2 sisters Physical Exam Vital Signs Vital Signs Date Time Temp Pulse Resp B/P Pulse Ox O2 Delivery O2 Flow Rate FiO2 05/13/16 14:00 101 05/13/16 12:57 94 45 05/13/16 12:00 45 05/13/16 12:00 98.7 93 16 111/58 93 05/13/16 12:00 93 05/13/16 10:39 92 45 05/13/16 10:00 90 05/13/16 08:00 81 05/13/16 08:00 98.6 81 16 90/53 91 05/13/16 08:00 40 05/13/16 06:00 81 05/13/16 04:15 96 50 05/13/16 04:00 84 05/13/16 04:00 50 05/13/16 04:00 100.3 84 16 110/58 96 05/13/16 02:00 89 05/13/16 01:04 99 100 05/13/16 00:00 100.2 92 16 108/55 99 05/13/16 00:00 92 05/13/16 00:00 100 05/12/16 22:30 99 100 05/12/16 22:30 100 100 05/12/16 22:24 100.6 95 91/52 96 05/12/16 21:23 101.1 103 91/52 93 05/12/16 21:05 100 100 05/12/16 20:23 101.3 101 96/58 98 05/12/16 20:08 95 Ventilator 05/12/16 20:02 96 05/12/16 19:59 67 89/55 05/12/16 19:55 96 100 05/12/16 19:55 96 100 Physical Exam GENERAL: This is a well-nourished, well-developed female, intubated and sedated , looks younger than stated age, not in respiratory distress. SKIN: Warm and dry. No generalized rash or ecchymosis. HEAD: Atraumatic. Normocephalic. No temporal or scalp tenderness. EYES: [place] conjunctivae, no petechia or hemorrhage. Pupils equal round and reactive. Extraocular movements full and intact. No scleral icterus. No injection or drainage. ENT: Nose without bleeding, or purulent drainage. Endotracheal tube is in the mouth. NECK: Trachea midline. No JVD or lymphadenopathy. Supple, nontender, no meningeal signs. CARDIOVASCULAR: Regular rate and rhythm without murmurs, gallops, or rubs. RESPIRATORY: Coarse breath sounds bilaterally. Breath sounds equal bilaterally. No wheezes, rales, or rhonchi. Decreased at the bases. GASTROINTESTINAL: Abdomen soft, slightly globular, non-tender, nondistended, bowel sounds are present and hypoactive. No hepato-splenomegaly, or palpable masses. No guarding. Has a long horizontal scar in the low abdomen. MUSCULOSKELETAL: Extremities without clubbing, cyanosis, or edema. Has brownish pigmentation in both legs. Both feet are well-perfused. NEUROLOGICAL: Sedated and intubated. No Babinski or ankle clonus. PSYCH: Unable to assess LINE: PIV with no evidence of infection : Crespo catheter in place, urine looks clear Laboratory Laboratory Tests Test 05/12/16 05/12/16 05/12/16 05/12/16 20:00 20:10 20:32 23:00 White Blood Count 10.2 Red Blood Count 4.73 Hemoglobin 12.3 Hematocrit 38.6 Mean Corpuscular Volume 81.6 Mean Corpuscular Hemoglobin 26.0 Mean Corpuscular Hemoglobin 31.8 Concent Red Cell Distribution Width 16.4 Platelet Count 178 Mean Platelet Volume 9.4 Neutrophils (%) (Auto) 89.9 Lymphocytes (%) (Auto) 3.1 Monocytes (%) (Auto) 6.8 Eosinophils (%) (Auto) 0.0 Basophils (%) (Auto) 0.2 Neutrophils # (Auto) 9.2 Lymphocytes # (Auto) 0.3 Monocytes # (Auto) 0.7 Eosinophils # (Auto) 0.0 Basophils # (Auto) 0.0 CBC Comment DIFF FINAL Differential Comment Prothrombin Time 10.4 Prothromb Time International 0.9 Ratio Activated Partial 23.4 Thromboplast Time Sodium Level 142 Potassium Level 5.1 Chloride Level 110 Carbon Dioxide Level 24.4 Anion Gap 8 Blood Urea Nitrogen 43 Creatinine 2.26 Estimat Glomerular Filtration 21 Rate Random Glucose 139 Calcium Level 8.4 Total Bilirubin 0.6 Aspartate Amino Transf 12 (AST/SGOT) Alanine Aminotransferase 18 (ALT/SGPT) Alkaline Phosphatase 61 Ammonia 17 Total Protein 6.3 Albumin 3.3 Lipase 144 Blood Type AB POSITIVE Antibody Screen NEGATIVE Blood Bank Comment Urine Color YELLOW Urine Turbidity CLEAR Urine pH 5.5 Urine Specific [place] 1.015 Urine Protein NEG Urine Glucose (UA) NEG Urine Ketones NEG Urine Occult Blood NEG Urine Nitrite NEG Urine Bilirubin NEG Urine Urobilinogen LESS THAN 2.0 Urine Leukocyte Esterase NEG Urine WBC LESS THAN 1 Urine Squamous Epithelial <1 Cells Urine Mucus FEW Microscopic Urinalysis Comment CULT NOT INDICATED Urine Opiates Screen POS Urine Barbiturates Screen NEG Urine Amphetamines Screen NEG Urine Benzodiazepines Screen NEG Urine Cocaine Screen NEG Urine Cannabinoids Screen NEG Blood Gas Puncture Site LT RADIAL Blood Gas Patient Temperature 98.6 Blood Gas HCO3 20 Blood Gas Base Excess -4.6 Blood Gas Oxygen Saturation 91 Arterial Blood pH 7.33 Arterial Blood Partial 40 Pressure CO2 Arterial Blood Partial 85 Pressure O2 Arterial Blood Oxygen Content 14.8 Arterial Blood 2.0 Carboxyhemoglobin Arterial Blood Methemoglobin 3.0 Blood Gas Hemoglobin 11.5 Oxygen Delivery Device VENTILATOR Blood Gas Ventilator Setting [id number] Blood Gas Inspired Oxygen 100 Nasal Screen MRSA (PCR) NEGATIVE Test 05/13/16 05/13/16 05/13/16 05:03 08:56 10:00 Sodium Level 144 145 Potassium Level 6.6 4.4 Chloride Level 113 115 Carbon Dioxide Level 20.8 22.6 Anion Gap 10 7 Blood Urea Nitrogen 37 33 Creatinine 2.03 1.90 Estimat Glomerular Filtration 24 25 Rate Random Glucose 116 117 Calcium Level 8.1 7.9 Total Bilirubin 0.8 Aspartate Amino Transf 39 (AST/SGOT) Alanine Aminotransferase 20 (ALT/SGPT) Alkaline Phosphatase 62 Total Protein 6.3 Albumin 3.1 Thyroid Stimulating Hormone 0.768 3rd Gen White Blood Count 6.4 Red Blood Count 4.26 Hemoglobin 10.9 Hematocrit 34.9 Mean Corpuscular Volume 81.9 Mean Corpuscular Hemoglobin 25.5 Mean Corpuscular Hemoglobin 31.1 Concent Red Cell Distribution Width 16.7 Platelet Count 156 Mean Platelet Volume 9.4 Neutrophils (%) (Auto) 85.8 Lymphocytes (%) (Auto) 11.9 Monocytes (%) (Auto) 1.9 Eosinophils (%) (Auto) 0.1 Basophils (%) (Auto) 0.3 Neutrophils # (Auto) 5.5 Lymphocytes # (Auto) 0.8 Monocytes # (Auto) 0.1 Eosinophils # (Auto) 0.0 Basophils # (Auto) 0.0 CBC Comment DIFF FINAL Differential Comment Date/Time Procedure Status Source Growth 05/13/16 08:56 Aerobic Blood Culture Received Blood Peripheral Pending 05/13/16 08:56 Anaerobic Blood Culture Received Blood Peripheral Pending 05/13/16 08:10 Gram Stain Received Sputum Endotracheal Pending 05/13/16 08:10 Sputum Culture Received Sputum Endotracheal Pending 05/13/16 08:05 Legionella Antigen - Final Complete Urine Catheterized Urine PRESUMPTIVE NEGATIVE FOR LEGIONELLA P... 05/13/16 08:05 Streptococcus pneumoniae Antigen (M - Final Complete Urine Catheterized Urine PRESUMPTIVE NEGATIVE FOR STREPTOCOCCU... Result Diagram: 05/13/16 0856 05/13/16 1000 Imaging RADIOLOGY STUDIES/FILMS REVIEWED Abdomen X-Ray 05/13/16 0000 Signed Impressions: Service Date/Time: Friday, May 13, 2016 10:51 - CONCLUSION: Benign abdomen. No evidence of obstruction David Luke MD Head CT 05/12/162045 Signed Impressions: Service Date/Time: Thursday, May 12, 2016 21:05 - CONCLUSION: Negative noncontrast head CT. Finn Mendez MD Chest X-Ray 05/12/162004 Signed Impressions: Service Date/Time: Thursday, May 12, 2016 20:19 - CONCLUSION: Patchy atelectasis/infiltrate throughout the right lung and mild atelectasis of the left lung base. Appropriate position of the endotracheal tube tip. Finn Mendez MD Assessment and Plan Assessment and Plan IMPRESSION Sepsis on admission due to pneumonia, likely aspiration Aspiration PNA Possible UGIB Respiratory failure Renal insufficiency,, seems chronic, worse likely due to sepsis, plus fluid Known severe depression RECOMMENDATION Check influenza Ag Follow C/S Adjust Abx once C/S available Continue Zosyn Check Vanco level in AM and redose if low Follow temps Monitor progress I will make further recommendation once work-up is completed I will follow along with you Thank you for this consultation Discussed Condition With D/W Nohemi Gomez MD May 13, 2016 15:33
--- NOTE | 2016-05-13 22:17 | EKG ---
Date Performed: 05/12/2016 Time Performed: 20:14:36 PTAGE: 80 years EKG: Sinus rhythm MARKED LEFT AXIS DEVIATION MODERATE INTRAVENTRICULAR CONDUCTION DELAY ABNORMAL ECG PREVIOUS TRACING : 01/03/2016 08.55 Compared to prior tracing no significant change DOCTOR: Naomi Bang Interpretating Date/Time 05/13/2016 22:15:54
[2016-05-14] VITALS (20 sets, daily range): BP systolic 120–165; BP diastolic 67–84; PULSE 99–120; RESP 16–22; TEMP 99–100.2; O2SAT 95–100
[2016-05-14] MEDS: PIPERACIL-TAZO 3.375 GM PREMIX 50 ML IV SCH ×3 (01:08→16:00)
[2016-05-14] MEDS: CHLORHEXIDINE GLUCONATE 2 % 1 PACK (2 CLOTHS) TOP SCH (01:09)
[2016-05-14] MEDS: RESP: ALBUTEROL 2.5 MG/IPRATROPIUM 0.5 MG NEB (SCH) NEB ×4 (04:07→20:48)
[2016-05-14] MEDS: INSULIN NovoLIN REGULAR SUPPLEMENTAL SCALE SQ SCH ×4 (06:00→18:00)
[2016-05-14 07:19] LABS: AUTOMATED NEUTROPHIL # 5.9 TH/MM3 (1.8-7.7); BASOPHIL % 0.4 % (0.0-2.0); EOSINOPHIL # 0.1 TH/MM3 (0-0.4); EOSINOPHIL % 1.4 % (0.0-4.0); HEMATOCRIT 35.5 % (35.0-46.0); HEMO FLAGS DIFF FINAL; LYMPH % 8.9 % (9.0-44.0); LYMPHOCYTE # 0.6 TH/MM3 (1.0-4.8); MEAN CELL VOLUME 83.2 FL (80.0-100.0); MEAN CORPUSCULAR HEMOGLOBIN 25.9 PG (27.0-34.0); MEAN CORPUSCULAR HGB CONC 31.1 % (32.0-36.0); MONO % 7.6 % (0.0-8.0); NEUT % 81.7 % (16.0-70.0); PLATELET COUNT 135 TH/MM3 (150-450); RED BLOOD COUNT 4.27 MIL/MM3 (4.00-5.30); RED CELL DISTRIBUTION WIDTH 16.6 % (11.6-17.2); WHITE BLOOD COUNT 7.2 TH/MM3 (4.0-11.0)
[2016-05-14 07:32] LABS: ALKALINE PHOSPHATASE 62 U/L (45-117); ALT (GPT) 17 U/L (10-53); ANION GAP 7 MEQ/L (5-15); AST (GOT) 13 U/L (15-37); BICARBONATE 22.6 MEQ/L (21.0-32.0); BLOOD UREA NITROGEN 27 MG/DL (7-18); CHLORIDE 117 MEQ/L (98-107); GLOMERULAR FILTRATION RATE 29 ML/MIN (>89); POTASSIUM 4.4 MEQ/L (3.5-5.1); SODIUM (NA) 147 MEQ/L (136-145); TOTAL BILIRUBIN ADULT 0.5 MG/DL (0.2-1.0)
[2016-05-14] MEDS: SODIUM CHLORIDE 0.9% FLUSH 5 ML FLUSH IV FLUSH SCH ×2 (08:30→21:50)
[2016-05-14] MEDS ORDERED: VANCOMYCIN INJ 1,750 MG in SODIUM CHLORID 0.9% 500 ML INJ 500 ML IV ONE (10:00)
[2016-05-14] MEDS: DOCUSATE SODIUM 100 MG/10 ML UDC G-TUBE SCH ×2 (11:40→23:00)
[2016-05-14] MEDS: PANTOPRAZOLE SODIUM 40 MG VIAL IV SCH (11:40)
[2016-05-14] MEDS ORDERED: BUMETANIDE INJ 1 MG/4 ML VIAL IV PUSH ONE (13:00)
--- NOTE | 2016-05-14 13:31 | HHI.CCPN ---
Subjective Remarks/Hospital Course 80-year-old female with history of psychiatric problems and previous attempt of overdose, severe depressions with a first admission to psychiatry at her 20s, diabetes, GERD, presents to the ER brought in by EMS because she had missed an appointment and her psychiatrist was concerned and sent EMS to evaluate her at home. She was found unresponsive with coffee-ground emesis on her shirt and around her mouth and nose. She was intubated for airway protection by EMS and is admitted to ICU now. 05/13 Patient is intubated and sedated with Diprivan. Tmax 101.3. On Protonix drip for ? GI bleed. K 6.6 this morning with Cr: 2.0 from 2.26. 05/14: Remains intubated off sedation. Low-grade fever. Tolerating C Pap trial. Creatinine steadily improving Objective Vital Signs Date Time Temp Pulse Resp B/P Pulse Ox O2 Delivery O2 Flow Rate FiO2 05/14/16 12:19 99 40 05/14/16 08:36 100.2 99 16 120/67 05/12/16 20:08 Ventilator Intake and Output 05/13/16 05/13/16 05/14/16 08:00 16:00 00:00 Intake Total 599 ml 1766 ml 904 ml Output Total 450 ml 550 ml 550 ml Balance 149 ml 1216 ml 354 ml Result Diagram: 05/14/16 0539 05/14/16 0539 Other Results Microbiology Date/Time Procedure Status Source Growth 05/13/16 08:05 Legionella Antigen - Final Complete Urine Catheterized Urine PRESUMPTIVE NEGATIVE FOR LEGIONELLA P... 05/13/16 08:05 Streptococcus pneumoniae Antigen (M - Final Complete Urine Catheterized Urine PRESUMPTIVE NEGATIVE FOR STREPTOCOCCU... 05/13/16 17:30 Influenza Types A,B Antigen (BARBRA) - Final Complete Nasal Washing NEGATIVE FOR FLU A AND B ANTIGEN.... Imaging Last Impressions Head CT 05/12/162045 Signed Impressions: Service Date/Time: Thursday, May 12, 2016 21:05 - CONCLUSION: Negative noncontrast head CT. Finn Mendez MD Chest X-Ray 05/12/162004 Signed Impressions: Service Date/Time: Thursday, May 12, 2016 20:19 - CONCLUSION: Patchy atelectasis/infiltrate throughout the right lung and mild atelectasis of the left lung base. Appropriate position of the endotracheal tube tip. Finn Mendez MD Objective Remarks GENERAL: Well-nourished, well-developed patient intubated SKIN: Warm and dry. HEAD: Normocephalic. EYES: No scleral icterus. No injection or drainage. NECK: Supple, trachea midline. No JVD or lymphadenopathy. Orally intubated CARDIOVASCULAR: Regular rate and rhythm without murmurs, gallops, or rubs. RESPIRATORY: Breath sounds equal bilaterally. No accessory muscle use. Tolerating CPAP GASTROINTESTINAL: Abdomen soft, non-tender, nondistended. MUSCULOSKELETAL: No cyanosis, or edema. BACK: Nontender without obvious deformity. No CVA tenderness. Neuro: Intubated, follows commands. Urinary Catheter: Yes Assessment to: Continue A/P Problem List: (1) Respiratory failure, acute ICD Code: J96.00 Status: Acute (2) Hypertension ICD Code: I10 Status: Acute (3) Dyslipidemia ICD Code: E78.5 Status: Acute (4) Intentional self poisoning Status: Acute (5) Depression ICD Code: F32.9 Status: Acute Assessment and Plan Acute respiratory failure Encephalopathy Aspiration pneumonia TUNG Hyperkalemia HTN ? GI bleed Intentional overdose Hx dyslipidemia DM GERD Plan Neuro: On Diprivan infusion for sedation, daily sedation vacation. Monitor neuro status. CT brain: No acute process. Ammonia level 17, UDS positive for Opiates Psych eval once extubated. Pulm: Continue with vent support keep sat >92% Bronchodilators, ICU vent bundle. Elevated head of bed. CPAP trials with possible extubation today CV: Monitor HR and BP keep MAP>65mmHg. Check Lactic acid :Monitor renal function, I/O's, avoid nephrotoxins. s/p Treatment of hyperkalemia with IV insulin 7units, 1 amp D50, [place] gluconate, Sodium bicarb. Repeat BMP Renal function improving with Cr: 1.7 from 2.0, Will DC IVF and give Bumex 1 mg IVx1 GI: Keep NPO, Protonix 40mg IV Q12 as well. GI eval. Appreciate GI consult Heme: Monitor CBC, coags ID: No cultures or abx given on arrival. Continue ( Zosyn, Vanco), adjust doses of abx per renal function. ID eval. F/U BC x 2 sets, sputum cx, strep pneumonia and Legionella urinary Ag. Nasal washing r/o Influenza negative Endo: SSI if needed for glycemic control GI prophylaxis- on Protonix 40mg Q12 DVT prophylaxis- SCD, hold chemical AC prophylaxis for now given ? GI bleed. Critical Care: Level 3 Kai Briseno MD May 14, 2016 13:31
[2016-05-14 13:40] LABS: HEMATOCRIT 32.3 % (35.0-46.0); REVIEW FLAG FINAL
--- NOTE | 2016-05-14 13:58 | HHI.IDPN ---
Subjective Subjective Allergies: Coded Allergies: No Known Allergies (Verified , 01/03/16) Objective . Nohemi Jacobsen MD May 14, 2016 13:58 Hysterectomy She has a long scar in her lower abdomen that looks like she might have had abdominoplasty Allergies: Coded Allergies: No Known Allergies (Verified , 01/03/16) Objective . Vital Signs Date Time Temp Pulse Resp B/P Pulse Ox O2 Delivery O2 Flow Rate FiO2 05/14/16 12:19 99 40 05/14/16 12:00 104 05/14/16 12:00 45 05/14/16 09:34 40 05/14/16 09:19 99 40 05/14/16 08:36 100.2 99 16 120/67 97 05/14/16 08:34 102 05/14/16 08:22 45 05/14/16 06:00 105 05/14/16 04:07 95 45 05/14/16 04:00 45 05/14/16 04:00 102 05/14/16 04:00 99.6 102 16 136/69 95 05/14/16 02:00 110 05/14/16 01:25 96 45 05/14/16 00:00 99.3 101 16 139/68 97 05/14/16 00:00 101 05/14/16 00:00 45 05/13/16 22:00 104 05/13/16 20:26 97 45 05/13/16 20:00 100.9 102 16 132/65 97 05/13/16 20:00 102 05/13/16 20:00 45 05/13/16 18:00 103 05/13/16 17:15 98 45 05/13/16 16:00 98.7 95 16 125/67 97 05/13/16 16:00 95 05/13/16 16:00 45 05/13/16 14:00 101 05/13/16 05/13/16 05/14/16 15:00 23:00 07:00 Intake Total 1766 ml 904 ml 716 ml Output Total 550 ml 550 ml 500 ml Balance 1216 ml 354 ml 216 ml Intake Oral 0 ml 0 ml IV Total 1716 ml 739 ml 527 ml Tube Feeding 105 ml 189 ml Tube Irrigant 50 ml 60 ml Output Urine Total 550 ml 550 ml 500 ml Gastric Drainage Total 0 ml # Bowel Movements 0 0 . Laboratory Tests Test 05/12/16 05/13/16 05/14/16 05/14/16 20:00 08:56 05:39 13:04 White Blood Count 10.2 TH/MM3 6.4 TH/MM3 7.2 TH/MM3 Red Blood Count 4.73 MIL/MM3 4.26 MIL/MM3 4.27 MIL/MM3 Hemoglobin 12.3 GM/DL 10.9 GM/DL 11.1 GM/DL 10.2 GM/DL Hematocrit 38.6 % 34.9 % 35.5 % 32.3 % Mean Corpuscular Volume 81.6 FL 81.9 FL 83.2 FL Mean Corpuscular Hemoglobin 26.0 PG 25.5 PG 25.9 PG Mean Corpuscular Hemoglobin 31.8 % 31.1 % 31.1 % Concent Red Cell Distribution Width 16.4 % 16.7 % 16.6 % Platelet Count 178 TH/MM3 156 TH/MM3 135 TH/MM3 Mean Platelet Volume 9.4 FL 9.4 FL 10.3 FL Neutrophils (%) (Auto) 89.9 % 85.8 % 81.7 % Lymphocytes (%) (Auto) 3.1 % 11.9 % 8.9 % Monocytes (%) (Auto) 6.8 % 1.9 % 7.6 % Eosinophils (%) (Auto) 0.0 % 0.1 % 1.4 % Basophils (%) (Auto) 0.2 % 0.3 % 0.4 % Neutrophils # (Auto) 9.2 TH/MM3 5.5 TH/MM3 5.9 TH/MM3 Lymphocytes # (Auto) 0.3 TH/MM3 0.8 TH/MM3 0.6 TH/MM3 Monocytes # (Auto) 0.7 TH/MM3 0.1 TH/MM3 0.5 TH/MM3 Eosinophils # (Auto) 0.0 TH/MM3 0.0 TH/MM3 0.1 TH/MM3 Basophils # (Auto) 0.0 TH/MM3 0.0 TH/MM3 0.0 TH/MM3 CBC Comment DIFF FINAL DIFF FINAL DIFF FINAL Differential Comment Laboratory Tests Test 05/12/16 05/13/16 05/13/16 05/13/16 20:00 05:03 10:00 15:16 Sodium Level 142 MEQ/L 144 MEQ/L 145 MEQ/L Potassium Level 5.1 MEQ/L 6.6 MEQ/L 4.4 MEQ/L Chloride Level 110 MEQ/L 113 MEQ/L 115 MEQ/L Carbon Dioxide Level 24.4 MEQ/L 20.8 MEQ/L 22.6 MEQ/L Anion Gap 8 MEQ/L 10 MEQ/L 7 MEQ/L Blood Urea Nitrogen 43 MG/DL 37 MG/DL 33 MG/DL Creatinine 2.26 MG/DL 2.03 MG/DL 1.90 MG/DL Estimat Glomerular Filtration 21 ML/MIN 24 ML/MIN 25 ML/MIN Rate Random Glucose 139 MG/DL 116 MG/DL 117 MG/DL Calcium Level 8.4 MG/DL 8.1 MG/DL 7.9 MG/DL Total Bilirubin 0.6 MG/DL 0.8 MG/DL Aspartate Amino Transf 12 U/L 39 U/L (AST/SGOT) Alanine Aminotransferase 18 U/L 20 U/L (ALT/SGPT) Alkaline Phosphatase 61 U/L 62 U/L Ammonia 17 MCMOL/L Total Protein 6.3 GM/DL 6.3 GM/DL Albumin 3.3 GM/DL 3.1 GM/DL Lipase 144 U/L Thyroid Stimulating Hormone 0.768 uIU/ML 3rd Gen Lactic Acid Level 2.1 mmol/L Test 05/14/16 05:39 Sodium Level 147 MEQ/L Potassium Level 4.4 MEQ/L Chloride Level 117 MEQ/L Carbon Dioxide Level 22.6 MEQ/L Anion Gap 7 MEQ/L Blood Urea Nitrogen 27 MG/DL Creatinine 1.71 MG/DL Estimat Glomerular Filtration 29 ML/MIN Rate Random Glucose 141 MG/DL Calcium Level 8.4 MG/DL Total Bilirubin 0.5 MG/DL Aspartate Amino Transf 13 U/L (AST/SGOT) Alanine Aminotransferase 17 U/L (ALT/SGPT) Alkaline Phosphatase 62 U/L Total Protein 6.1 GM/DL Albumin 2.6 GM/DL Microbiology Date/Time Procedure Status Source Growth 05/13/16 08:05 Legionella Antigen - Final Complete Urine Catheterized Urine PRESUMPTIVE NEGATIVE FOR LEGIONELLA P... 05/13/16 08:05 Streptococcus pneumoniae Antigen (M - Final Complete Urine Catheterized Urine PRESUMPTIVE NEGATIVE FOR STREPTOCOCCU... 05/13/16 08:10 Gram Stain - Final Resulted Sputum Endotracheal 05/13/16 08:10 Sputum Culture - Preliminary Resulted Sputum Endotracheal HEAVY GROWTH NORMAL RESPIRATORY SHONNA... 05/13/16 08:50 Aerobic Blood Culture - Preliminary Resulted Blood Peripheral NO GROWTH IN 1 DAY 05/13/16 08:50 Anaerobic Blood Culture - Preliminary Resulted Blood Peripheral NO GROWTH IN 1 DAY 05/13/16 08:56 Aerobic Blood Culture - Preliminary Resulted Blood Peripheral NO GROWTH IN 1 DAY 05/13/16 08:56 Anaerobic Blood Culture - Preliminary Resulted Blood Peripheral NO GROWTH IN 1 DAY 05/13/16 17:30 Influenza Types A,B Antigen (BARBRA) - Final Complete Nasal Washing NEGATIVE FOR FLU A AND B ANTIGEN.... Nohemi Jacobsen MD May 14, 2016 13:58
--- NOTE | 2016-05-14 14:02 | HHI.IDPN ---
Subjective Subjective Remarks Notes reviewed Has low grade temps Tolerating CPAP Getting prepped for extubation BC negative Creatinine better Sputum prelim normal khris Antibiotics Zosyn Lines PIV Past Medical History Depressions severe - has had ECT treatment Previous suicide attempts, drug overdose Hypertension Dyslipidemia GERD Diabetes Past Surgical History Tonsillectomy Appendectomy Hysterectomy She has a long scar in her lower abdomen that looks like she might have had abdominoplasty Allergies: Coded Allergies: No Known Allergies (Verified , 01/03/16) Objective . Vital Signs Date Time Temp Pulse Resp B/P Pulse Ox O2 Delivery O2 Flow Rate FiO2 05/14/16 12:19 99 40 05/14/16 12:00 104 05/14/16 12:00 45 05/14/16 09:34 40 05/14/16 09:19 99 40 05/14/16 08:36 100.2 99 16 120/67 97 05/14/16 08:34 102 05/14/16 08:22 45 05/14/16 06:00 105 05/14/16 04:07 95 45 05/14/16 04:00 45 05/14/16 04:00 102 05/14/16 04:00 99.6 102 16 136/69 95 05/14/16 02:00 110 05/14/16 01:25 96 45 05/14/16 00:00 99.3 101 16 139/68 97 05/14/16 00:00 101 05/14/16 00:00 45 05/13/16 22:00 104 05/13/16 20:26 97 45 05/13/16 20:00 100.9 102 16 132/65 97 05/13/16 20:00 102 05/13/16 20:00 45 05/13/16 18:00 103 05/13/16 17:15 98 45 05/13/16 16:00 98.7 95 16 125/67 97 05/13/16 16:00 95 05/13/16 16:00 45 05/13/16 14:00 101 05/13/16 05/13/16 05/14/16 15:00 23:00 07:00 Intake Total 1766 ml 904 ml 716 ml Output Total 550 ml 550 ml 500 ml Balance 1216 ml 354 ml 216 ml Intake Oral 0 ml 0 ml IV Total 1716 ml 739 ml 527 ml Tube Feeding 105 ml 189 ml Tube Irrigant 50 ml 60 ml Output Urine Total 550 ml 550 ml 500 ml Gastric Drainage Total 0 ml # Bowel Movements 0 0 . Laboratory Tests Test 05/12/16 05/13/16 05/14/16 05/14/16 20:00 08:56 05:39 13:04 White Blood Count 10.2 TH/MM3 6.4 TH/MM3 7.2 TH/MM3 Red Blood Count 4.73 MIL/MM3 4.26 MIL/MM3 4.27 MIL/MM3 Hemoglobin 12.3 GM/DL 10.9 GM/DL 11.1 GM/DL 10.2 GM/DL Hematocrit 38.6 % 34.9 % 35.5 % 32.3 % Mean Corpuscular Volume 81.6 FL 81.9 FL 83.2 FL Mean Corpuscular Hemoglobin 26.0 PG 25.5 PG 25.9 PG Mean Corpuscular Hemoglobin 31.8 % 31.1 % 31.1 % Concent Red Cell Distribution Width 16.4 % 16.7 % 16.6 % Platelet Count 178 TH/MM3 156 TH/MM3 135 TH/MM3 Mean Platelet Volume 9.4 FL 9.4 FL 10.3 FL Neutrophils (%) (Auto) 89.9 % 85.8 % 81.7 % Lymphocytes (%) (Auto) 3.1 % 11.9 % 8.9 % Monocytes (%) (Auto) 6.8 % 1.9 % 7.6 % Eosinophils (%) (Auto) 0.0 % 0.1 % 1.4 % Basophils (%) (Auto) 0.2 % 0.3 % 0.4 % Neutrophils # (Auto) 9.2 TH/MM3 5.5 TH/MM3 5.9 TH/MM3 Lymphocytes # (Auto) 0.3 TH/MM3 0.8 TH/MM3 0.6 TH/MM3 Monocytes # (Auto) 0.7 TH/MM3 0.1 TH/MM3 0.5 TH/MM3 Eosinophils # (Auto) 0.0 TH/MM3 0.0 TH/MM3 0.1 TH/MM3 Basophils # (Auto) 0.0 TH/MM3 0.0 TH/MM3 0.0 TH/MM3 CBC Comment DIFF FINAL DIFF FINAL DIFF FINAL Differential Comment Laboratory Tests Test 05/12/16 05/13/16 05/13/16 05/13/16 20:00 05:03 10:00 15:16 Sodium Level 142 MEQ/L 144 MEQ/L 145 MEQ/L Potassium Level 5.1 MEQ/L 6.6 MEQ/L 4.4 MEQ/L Chloride Level 110 MEQ/L 113 MEQ/L 115 MEQ/L Carbon Dioxide Level 24.4 MEQ/L 20.8 MEQ/L 22.6 MEQ/L Anion Gap 8 MEQ/L 10 MEQ/L 7 MEQ/L Blood Urea Nitrogen 43 MG/DL 37 MG/DL 33 MG/DL Creatinine 2.26 MG/DL 2.03 MG/DL 1.90 MG/DL Estimat Glomerular Filtration 21 ML/MIN 24 ML/MIN 25 ML/MIN Rate Random Glucose 139 MG/DL 116 MG/DL 117 MG/DL Calcium Level 8.4 MG/DL 8.1 MG/DL 7.9 MG/DL Total Bilirubin 0.6 MG/DL 0.8 MG/DL Aspartate Amino Transf 12 U/L 39 U/L (AST/SGOT) Alanine Aminotransferase 18 U/L 20 U/L (ALT/SGPT) Alkaline Phosphatase 61 U/L 62 U/L Ammonia 17 MCMOL/L Total Protein 6.3 GM/DL 6.3 GM/DL Albumin 3.3 GM/DL 3.1 GM/DL Lipase 144 U/L Thyroid Stimulating Hormone 0.768 uIU/ML 3rd Gen Lactic Acid Level 2.1 mmol/L Test 05/14/16 05:39 Sodium Level 147 MEQ/L Potassium Level 4.4 MEQ/L Chloride Level 117 MEQ/L Carbon Dioxide Level 22.6 MEQ/L Anion Gap 7 MEQ/L Blood Urea Nitrogen 27 MG/DL Creatinine 1.71 MG/DL Estimat Glomerular Filtration 29 ML/MIN Rate Random Glucose 141 MG/DL Calcium Level 8.4 MG/DL Total Bilirubin 0.5 MG/DL Aspartate Amino Transf 13 U/L (AST/SGOT) Alanine Aminotransferase 17 U/L (ALT/SGPT) Alkaline Phosphatase 62 U/L Total Protein 6.1 GM/DL Albumin 2.6 GM/DL Microbiology Date/Time Procedure Status Source Growth 05/13/16 08:05 Legionella Antigen - Final Complete Urine Catheterized Urine PRESUMPTIVE NEGATIVE FOR LEGIONELLA P... 05/13/16 08:05 Streptococcus pneumoniae Antigen (M - Final Complete Urine Catheterized Urine PRESUMPTIVE NEGATIVE FOR STREPTOCOCCU... 05/13/16 08:10 Gram Stain - Final Resulted Sputum Endotracheal 05/13/16 08:10 Sputum Culture - Preliminary Resulted Sputum Endotracheal HEAVY GROWTH NORMAL RESPIRATORY KHRIS... 05/13/16 08:50 Aerobic Blood Culture - Preliminary Resulted Blood Peripheral NO GROWTH IN 1 DAY 05/13/16 08:50 Anaerobic Blood Culture - Preliminary Resulted Blood Peripheral NO GROWTH IN 1 DAY 05/13/16 08:56 Aerobic Blood Culture - Preliminary Resulted Blood Peripheral NO GROWTH IN 1 DAY 05/13/16 08:56 Anaerobic Blood Culture - Preliminary Resulted Blood Peripheral NO GROWTH IN 1 DAY 05/13/16 17:30 Influenza Types A,B Antigen (BARBRA) - Final Complete Nasal Washing NEGATIVE FOR FLU A AND B ANTIGEN.... Imaging Abdomen X-Ray 05/13/16 0000 Signed Impressions: Service Date/Time: Friday, May 13, 2016 10:51 - CONCLUSION: Benign abdomen. No evidence of obstruction David Luke MD Head CT 05/12/162045 Signed Impressions: Service Date/Time: Thursday, May 12, 2016 21:05 - CONCLUSION: Negative noncontrast head CT. Finn Mendez MD Chest X-Ray 05/12/162004 Signed Impressions: Service Date/Time: Thursday, May 12, 2016 20:19 - CONCLUSION: Patchy atelectasis/infiltrate throughout the right lung and mild atelectasis of the left lung base. Appropriate position of the endotracheal tube tip. Finn Mendez MD Physical Exam GENERAL: Awake but sluggish, on the vent, NAD SKIN: Warm and dry. No generalized rash or ecchymosis. HEENT: [place] conjunctivae, no petechia or hemorrhage. No scleral icterus. Endotracheal tube is in the mouth. NECK: Supple, nontender, no meningeal signs. CARDIOVASCULAR: Regular rate and rhythm without murmurs, gallops, or rubs. RESPIRATORY: Coarse breath sounds bilaterally. Breath sounds equal bilaterally. No wheezes, rales, or rhonchi. Decreased at the bases. GASTROINTESTINAL: Abdomen soft, slightly globular, non-tender, nondistended, bowel sounds are present and hypoactive. MUSCULOSKELETAL: Extremities without clubbing, cyanosis, or edema. Has brownish pigmentation in both legs. Both feet are well-perfused. NEUROLOGICAL: Sedated and intubated. No Babinski or ankle clonus. PSYCH: Unable to assess LINE: PIV with no evidence of infection : Crespo catheter in place, urine looks clear Assessment & Plan Remarks IMPRESSION Sepsis on admission due to pneumonia, likely aspiration Aspiration PNA Possible UGIB Respiratory failure, tolerating CPAP - possible extubation today Renal insufficiency,, seems chronic, worse likely due to sepsis, plus fluid Known severe depression Hx severe depression and multiple suicide attempts RECOMMENDATION Continue Zosyn Will not give any further Vanco - got dose today Follow C/S and adjust Abx Follow temps Monitor progress CXR in few days Possible extubation today D/W Nohemi Gomez MD May 14, 2016 14:02
--- NOTE | 2016-05-14 16:33 | HHI.GIFU ---
Subjective Remarks Patient is resting in bed, extubated earlier today, she is still lethargic, asking for water, stating "I tried to end my life". She denies abdomen pain, nausea, or vomiting. No signs of bleeding, psych will be consulted per son wishes as this her 7th attempt to end life. (Neal Harris MARLYN) Objective Vitals I&O Vital Signs Date Time Temp Pulse Resp B/P Pulse Ox O2 Delivery O2 Flow Rate FiO2 05/14/16 15:00 96 Nasal Cannula 3.00 05/14/16 14:00 110 05/14/16 13:58 96 Nasal Cannula 3 05/14/16 12:19 99 40 05/14/16 12:00 104 05/14/16 12:00 45 05/14/16 12:00 99.0 109 20 141/76 98 05/14/16 09:34 Nasal Cannula 40 05/14/16 09:19 99 40 05/14/16 08:36 100.2 99 16 120/67 97 05/14/16 08:34 102 05/14/16 08:22 45 05/14/16 06:00 105 05/14/16 04:07 95 45 05/14/16 04:00 45 05/14/16 04:00 102 05/14/16 04:00 99.6 102 16 136/69 95 05/14/16 02:00 110 05/14/16 01:25 96 45 05/14/16 00:00 99.3 101 16 139/68 97 05/14/16 00:00 101 05/14/16 00:00 45 05/13/16 22:00 104 05/13/16 20:26 97 45 05/13/16 20:00 100.9 102 16 132/65 97 05/13/16 20:00 102 05/13/16 20:00 45 05/13/16 18:00 103 05/13/16 17:15 98 45 I/O 05/13/16 05/13/16 05/13/16 05/14/16 05/14/16 05/14/16 07:00 15:00 23:00 07:00 15:00 23:00 Intake Total 599 ml 1766 ml 904 ml 716 ml 537 ml Output Total 450 ml 550 ml 550 ml 500 ml 1950 ml Balance 149 ml 1216 ml 354 ml 216 ml -1413 ml Intake Oral 0 ml 0 ml 0 ml 0 ml IV Total 599 ml 1716 ml 739 ml 527 ml 422 ml Tube Feeding 105 ml 189 ml 75 ml Tube Irrigant 50 ml 60 ml 40 ml Output Urine Total 450 ml 550 ml 550 ml 500 ml 1950 ml Gastric Drainage Total 0 ml 0 ml # Bowel Movements 0 0 0 0 Laboratory Laboratory Tests Test 05/14/16 05/14/16 05:39 13:04 White Blood Count 7.2 Red Blood Count 4.27 Hemoglobin 11.1 10.2 Hematocrit 35.5 32.3 Mean Corpuscular Volume 83.2 Mean Corpuscular Hemoglobin 25.9 Mean Corpuscular Hemoglobin 31.1 Concent Red Cell Distribution Width 16.6 Platelet Count 135 Mean Platelet Volume 10.3 Neutrophils (%) (Auto) 81.7 Lymphocytes (%) (Auto) 8.9 Monocytes (%) (Auto) 7.6 Eosinophils (%) (Auto) 1.4 Basophils (%) (Auto) 0.4 Neutrophils # (Auto) 5.9 Lymphocytes # (Auto) 0.6 Monocytes # (Auto) 0.5 Eosinophils # (Auto) 0.1 Basophils # (Auto) 0.0 CBC Comment DIFF FINAL Differential Comment Sodium Level 147 Potassium Level 4.4 Chloride Level 117 Carbon Dioxide Level 22.6 Anion Gap 7 Blood Urea Nitrogen 27 Creatinine 1.71 Estimat Glomerular Filtration 29 Rate Random Glucose 141 Calcium Level 8.4 Total Bilirubin 0.5 Aspartate Amino Transf 13 (AST/SGOT) Alanine Aminotransferase 17 (ALT/SGPT) Alkaline Phosphatase 62 Total Protein 6.1 Albumin 2.6 Random Vancomycin Level 12.8 Date/Time Procedure Status Source Growth 05/13/16 17:30 Influenza Types A,B Antigen (BARBRA) - Final Complete Nasal Washing NEGATIVE FOR FLU A AND B ANTIGEN.... 05/13/16 08:56 Aerobic Blood Culture - Preliminary Resulted Blood Peripheral NO GROWTH IN 1 DAY 05/13/16 08:56 Anaerobic Blood Culture - Preliminary Resulted Blood Peripheral NO GROWTH IN 1 DAY 05/13/16 08:10 Gram Stain - Final Resulted Sputum Endotracheal 05/13/16 08:10 Sputum Culture - Preliminary Resulted Sputum Endotracheal HEAVY GROWTH NORMAL RESPIRATORY SHONNA... 05/13/16 08:05 Legionella Antigen - Final Complete Urine Catheterized Urine PRESUMPTIVE NEGATIVE FOR LEGIONELLA P... 05/13/16 08:05 Streptococcus pneumoniae Antigen (M - Final Complete Urine Catheterized Urine PRESUMPTIVE NEGATIVE FOR STREPTOCOCCU... Imaging Last Impressions Abdomen X-Ray 05/13/16 0000 Signed Impressions: Service Date/Time: Friday, May 13, 2016 10:51 - CONCLUSION: Benign abdomen. No evidence of obstruction David Luke MD Head CT 05/12/162045 Signed Impressions: Service Date/Time: Thursday, May 12, 2016 21:05 - CONCLUSION: Negative noncontrast head CT. Finn Mendez MD Chest X-Ray 05/12/162004 Signed Impressions: Service Date/Time: Thursday, May 12, 2016 20:19 - CONCLUSION: Patchy atelectasis/infiltrate throughout the right lung and mild atelectasis of the left lung base. Appropriate position of the endotracheal tube tip. Finn Mendez MD Physical Exam HEENT:normocephalic; atraumatic; no jaundice. NECK: Neck is supple, no JVD, no lymphadenopathy. CHEST: shallow breathing CARDIAC: Regular rate and rhythm with no murmur gallop or rubs. ABDOMEN: Soft, nondistended, nontender; no hepatosplenomegaly; bowel sounds are present in all four quadrants. EXTREMITIES: No clubbing, cyanosis, or edema. SKIN: Normal; no rash; no jaundice. SIMPLEX OPERATOR: Lethargic; alert and oriented. (Neal Harris) Assessment and Plan Plan ASSESSMENT: - GIB with coffee ground emesis. No signs of bleeding so far, hgb stable 10.2 , was extubated earlier today KUB on (05/13/16) no acute findings Found unresponsive with coffee grounds material on shirt and around face and nose. - Acute respiratory failure, extubated today - Hyperkalemia, resolved - Drug overdose with hx of severe depression and previous suicide attempts, seven times of over dose according to son- Psych consult per son wishes - DM, Hyperlipidemia, HTN per CCM PLAN: - Diet per CCM - NPO mn for possible EGD in am - Obtain consents - Switch to PPI BID - Monitor HH - Notify GI for active bleeding - Pt seen and examined by Dr. Vallejo and myself and this note is written on his behalf (Neal Harris) Physician Comments patient son refused EGD, comfort care, we will sign off. (Bryant Vallejo MD) Neal Harris May 14, 2016 16:33 Bryant Vallejo MD May 15, 2016 13:13
[2016-05-15] VITALS (10 sets, daily range): BP systolic 141–171; BP diastolic 65–81; PULSE 90–104; RESP 16–23; TEMP 98.1–99.8; O2SAT 90–99
[2016-05-15] MEDS: PIPERACIL-TAZO 3.375 GM PREMIX 50 ML IV SCH (00:15)
[2016-05-15] MEDS: PANTOPRAZOLE SODIUM 40 MG VIAL IV SCH ×2 (00:15→10:32)
[2016-05-15] MEDS: CHLORHEXIDINE GLUCONATE 2 % 1 PACK (2 CLOTHS) TOP SCH (00:48)
[2016-05-15] MEDS: RESP: ALBUTEROL 2.5 MG/IPRATROPIUM 0.5 MG NEB (SCH) NEB ×3 (03:52→15:55)
[2016-05-15] MEDS: INSULIN NovoLIN REGULAR SUPPLEMENTAL SCALE SQ SCH ×3 (06:00→11:37)
[2016-05-15 06:54] LABS: HEMATOCRIT 31.8 % (35.0-46.0); MEAN CORPUSCULAR HEMOGLOBIN 26.1 PG (27.0-34.0); MEAN CORPUSCULAR HGB CONC 32.2 % (32.0-36.0); PLATELET COUNT 144 TH/MM3 (150-450); RED BLOOD COUNT 3.92 MIL/MM3 (4.00-5.30); RED CELL DISTRIBUTION WIDTH 16.4 % (11.6-17.2); REVIEW FLAG FINAL
[2016-05-15 07:13] LABS: ANION GAP 8 MEQ/L (5-15); AST (GOT) 12 U/L (15-37); BICARBONATE 27.5 MEQ/L (21.0-32.0); BLOOD UREA NITROGEN 22 MG/DL (7-18); CHLORIDE 113 MEQ/L (98-107); GLOMERULAR FILTRATION RATE 34 ML/MIN (>89); POTASSIUM 3.8 MEQ/L (3.5-5.1); SODIUM (NA) 148 MEQ/L (136-145)
[2016-05-15 07:16] LABS: ALKALINE PHOSPHATASE 56 U/L (45-117); ALT (GPT) 14 U/L (10-53); TOTAL BILIRUBIN ADULT 0.7 MG/DL (0.2-1.0)
--- NOTE | 2016-05-15 08:44 | PD.TRANSFR ---
Transfer Summary Admission Date May 12, 2016 at 21:04 Admitting Diagnosis GI bleed/intubated/altered mental status Diagnoses: (1) Intentional self poisoning Diagnosis: Principal (2) Respiratory failure, acute Diagnosis: Principal (3) Acute kidney injury Diagnosis: Principal (4) GI bleeding Diagnosis: Principal (5) Depression Diagnosis: Secondary (6) Hypertension Diagnosis: Secondary (7) Dyslipidemia Diagnosis: Secondary Transfer Summary/Subjective 80-year-old female with history of psychiatric problems and previous attempt of overdose, severe depressions with a first admission to psychiatry at her 20s, diabetes, GERD, presents to the ER brought in by EMS because she had missed an appointment and her psychiatrist was concerned and sent EMS to evaluate her at home. She was found unresponsive with coffee-ground emesis on her shirt and around her mouth and nose. She was intubated for airway protection by EMS and is admitted to ICU now. UDS positive only for opiates 05/13 Patient is intubated and sedated with Diprivan. Tmax 101.3. On Protonix drip for ? GI bleed. K 6.6 this morning with Cr: 2.0 from 2.26. 05/14: Remains intubated off sedation. Low-grade fever. Tolerating C Pap trial. Creatinine steadily improving 05/14: Extubated yesterday tolerating well. Patient is able to communicate alert oriented. He refuses to tell me why she overdosed she states that it is possible. Creatinine is improved to 1.5 urine output 3.5 L in 24 hours. Psychiatric consult is pending Objective Vital Signs Date Time Temp Pulse Resp B/P Pulse Ox O2 Delivery O2 Flow Rate FiO2 05/15/16 08:00 98.5 90 18 169/75 96 05/15/16 07:00 Nasal Cannula 4.00 05/14/16 18:00 45 Intake and Output 05/14/16 05/14/16 05/15/16 08:00 16:00 00:00 Intake Total 716 ml 537 ml 90 ml Output Total 500 ml 1950 ml 950 ml Balance 216 ml -1413 ml -860 ml Result Diagram: 05/15/16 0530 05/15/16 0530 Other Results Microbiology Date/Time Procedure Status Source Growth 05/13/16 08:05 Legionella Antigen - Final Complete Urine Catheterized Urine PRESUMPTIVE NEGATIVE FOR LEGIONELLA P... 05/13/16 08:05 Streptococcus pneumoniae Antigen (M - Final Complete Urine Catheterized Urine PRESUMPTIVE NEGATIVE FOR STREPTOCOCCU... 05/13/16 08:10 Gram Stain - Final Complete Sputum Endotracheal 05/13/16 08:10 Sputum Culture - Final Complete Sputum Endotracheal HEAVY GROWTH NORMAL RESPIRATORY SHONNA 05/13/16 17:30 Influenza Types A,B Antigen (BARBRA) - Final Complete Nasal Washing NEGATIVE FOR FLU A AND B ANTIGEN.... Imaging Last Impressions Head CT 05/12/162045 Signed Impressions: Service Date/Time: Thursday, May 12, 2016 21:05 - CONCLUSION: Negative noncontrast head CT. Finn Mendez MD Chest X-Ray 05/12/162004 Signed Impressions: Service Date/Time: Thursday, May 12, 2016 20:19 - CONCLUSION: Patchy atelectasis/infiltrate throughout the right lung and mild atelectasis of the left lung base. Appropriate position of the endotracheal tube tip. Finn Mendez MD Objective Remarks GENERAL: Well-nourished, well-developed on NC SKIN: Warm and dry. HEAD: Normocephalic. EYES: No scleral icterus. No injection or drainage. NECK: Supple, trachea midline. No JVD or lymphadenopathy. CARDIOVASCULAR: Regular rate and rhythm without murmurs, gallops, or rubs. RESPIRATORY: Breath sounds equal bilaterally. No accessory muscle use. GASTROINTESTINAL: Abdomen soft, non-tender, nondistended. MUSCULOSKELETAL: No cyanosis, or edema. BACK: Nontender without obvious deformity. No CVA tenderness. Neuro: Alert awake, oriented to person and place. Moves all extremities no focal deficits A/P Problem List: (1) Respiratory failure, acute ICD Code: J96.00 Status: Acute (2) Intentional self poisoning Status: Acute (3) Hypertension ICD Code: I10 Status: Acute (4) Dyslipidemia ICD Code: E78.5 Status: Acute (5) Depression ICD Code: F32.9 Status: Acute Assessment and Plan ASSESSMENT: Acute respiratory failure-extubated 05/14/16 Encephalopathy Aspiration pneumonia TUNG Hyperkalemia GI bleed Intentional overdose Hx dyslipidemia HTN DM GERD Plan Neuro: Minimize all sedation. Monitor neuro status. CT brain: No acute process. Ammonia level 17, UDS positive for Opiates Psych consult pending Pulm: Continue with NC to keep sat >90% Bronchodilators, Elevated head of bed. Extubated at 05/14/16 CV: Monitor HR and BP keep MAP>65mmHg. : Monitor renal function, I/O's, avoid nephrotoxins. s/p Treatment of hyperkalemia with IV insulin 7units, 1 amp D50, Wilbur gluconate, Sodium bicarb. Repeat BMP Renal function improving with Cr: 1.5 from 1.7. IV fluids discontinued and Bumex 1 mg [id number] 04/13/16 GI: Keep NPO for possible EGD, Protonix 40mg IV Q12 as well. GI following Heme: Monitor CBC, coags ID: No cultures or abx given on arrival. Continue ( Zosyn, Vanco), adjust doses of abx per renal function. ID following F/U BC x 2 sets, sputum cx, All cultures are negative to date. Negative strep pneumonia and Legionella urinary Ag. Nasal washing r/o Influenza negative Endo: SSI if needed for glycemic control GI prophylaxis- on Protonix 40mg Q12 DVT prophylaxis- SCD, hold chemical AC prophylaxis for now given due to upper GI bleed. Critical Care: Level 2 Consulted hospitalist to assume care am Kai Briseno MD May 15, 2016 08:44
--- NOTE | 2016-05-15 08:49 | HHI.IDPN ---
Subjective Subjective Remarks Notes reviewed Temps 99+ Extubated yesterday Good sats on 4L NC Not coughing much Denies SOB No CP Denies swallowing difficulty, or nausea or vomiting prior to admission Lives alone at home Has cats; no other pets in the house Antibiotics Zosyn Lines PIV Past Medical History Depressions severe - has had ECT treatment Previous suicide attempts, drug overdose Hypertension Dyslipidemia GERD Diabetes Past Surgical History Tonsillectomy Appendectomy Hysterectomy She has a long scar in her lower abdomen that looks like she might have had abdominoplasty Allergies: Coded Allergies: No Known Allergies (Verified , 01/03/16) Objective . Vital Signs Date Time Temp Pulse Resp B/P Pulse Ox O2 Delivery O2 Flow Rate FiO2 05/15/16 08:00 98.5 90 18 169/75 96 05/15/16 08:00 102 05/15/16 07:00 95 Nasal Cannula 4.00 05/15/16 06:00 103 05/15/16 04:00 92 05/15/16 04:00 99.6 92 22 158/80 99 05/15/16 02:00 104 05/15/16 00:00 99.8 104 23 143/65 97 05/15/16 00:00 104 05/14/16 22:00 120 05/14/16 20:48 96 Nasal Cannula 4.00 05/14/16 20:00 100.1 111 22 158/75 96 05/14/16 20:00 111 05/14/16 18:00 113 05/14/16 18:00 Nasal Cannula 4.00 45 05/14/16 16:39 119 05/14/16 16:00 95 Nasal Cannula 4.00 40 05/14/16 16:00 99.0 111 20 165/84 100 05/14/16 15:00 96 Nasal Cannula 3.00 05/14/16 14:00 110 05/14/16 13:58 96 Nasal Cannula 3 05/14/16 13:50 95 Nasal Cannula 4.00 05/14/16 12:19 99 40 05/14/16 12:00 104 05/14/16 12:00 45 05/14/16 12:00 99.0 109 20 141/76 98 05/14/16 09:34 Nasal Cannula 40 05/14/16 09:19 99 40 05/14/16 05/14/16 05/15/16 15:00 23:00 07:00 Intake Total 537 ml 90 ml 55 ml Output Total 1950 ml 950 ml 625 ml Balance -1413 ml -860 ml -570 ml Intake Oral 0 ml 90 ml 0 ml IV Total 422 ml 0 ml 55 ml Tube Feeding 75 ml Tube Irrigant 40 ml Output Urine Total 1950 ml 950 ml 625 ml # Bowel Movements 0 0 0 . Laboratory Tests Test 05/13/16 05/14/16 05/14/16 05/15/16 08:56 05:39 13:04 05:30 White Blood Count 6.4 TH/MM3 7.2 TH/MM3 6.0 TH/MM3 Red Blood Count 4.26 MIL/MM3 4.27 MIL/MM3 3.92 MIL/MM3 Hemoglobin 10.9 GM/DL 11.1 GM/DL 10.2 GM/DL 10.2 GM/DL Hematocrit 34.9 % 35.5 % 32.3 % 31.8 % Mean Corpuscular Volume 81.9 FL 83.2 FL 81.0 FL Mean Corpuscular Hemoglobin 25.5 PG 25.9 PG 26.1 PG Mean Corpuscular Hemoglobin 31.1 % 31.1 % 32.2 % Concent Red Cell Distribution Width 16.7 % 16.6 % 16.4 % Platelet Count 156 TH/MM3 135 TH/MM3 144 TH/MM3 Mean Platelet Volume 9.4 FL 10.3 FL 9.8 FL Neutrophils (%) (Auto) 85.8 % 81.7 % Lymphocytes (%) (Auto) 11.9 % 8.9 % Monocytes (%) (Auto) 1.9 % 7.6 % Eosinophils (%) (Auto) 0.1 % 1.4 % Basophils (%) (Auto) 0.3 % 0.4 % Neutrophils # (Auto) 5.5 TH/MM3 5.9 TH/MM3 Lymphocytes # (Auto) 0.8 TH/MM3 0.6 TH/MM3 Monocytes # (Auto) 0.1 TH/MM3 0.5 TH/MM3 Eosinophils # (Auto) 0.0 TH/MM3 0.1 TH/MM3 Basophils # (Auto) 0.0 TH/MM3 0.0 TH/MM3 CBC Comment DIFF FINAL DIFF FINAL Differential Comment Laboratory Tests Test 05/13/16 05/13/16 05/14/16 05/15/16 10:00 15:16 05:39 05:30 Sodium Level 145 MEQ/L 147 MEQ/L 148 MEQ/L Potassium Level 4.4 MEQ/L 4.4 MEQ/L 3.8 MEQ/L Chloride Level 115 MEQ/L 117 MEQ/L 113 MEQ/L Carbon Dioxide Level 22.6 MEQ/L 22.6 MEQ/L 27.5 MEQ/L Anion Gap 7 MEQ/L 7 MEQ/L 8 MEQ/L Blood Urea Nitrogen 33 MG/DL 27 MG/DL 22 MG/DL Creatinine 1.90 MG/DL 1.71 MG/DL 1.49 MG/DL Estimat Glomerular Filtration 25 ML/MIN 29 ML/MIN 34 ML/MIN Rate Random Glucose 117 MG/DL 141 MG/DL 97 MG/DL Calcium Level 7.9 MG/DL 8.4 MG/DL 8.9 MG/DL Lactic Acid Level 2.1 mmol/L Total Bilirubin 0.5 MG/DL 0.7 MG/DL Aspartate Amino Transf 13 U/L 12 U/L (AST/SGOT) Alanine Aminotransferase 17 U/L 14 U/L (ALT/SGPT) Alkaline Phosphatase 62 U/L 56 U/L Total Protein 6.1 GM/DL 6.0 GM/DL Albumin 2.6 GM/DL 2.6 GM/DL Microbiology Date/Time Procedure Status Source Growth 05/13/16 08:05 Legionella Antigen - Final Complete Urine Catheterized Urine PRESUMPTIVE NEGATIVE FOR LEGIONELLA P... 05/13/16 08:05 Streptococcus pneumoniae Antigen (M - Final Complete Urine Catheterized Urine PRESUMPTIVE NEGATIVE FOR STREPTOCOCCU... 05/13/16 08:10 Gram Stain - Final Complete Sputum Endotracheal 05/13/16 08:10 Sputum Culture - Final Complete Sputum Endotracheal HEAVY GROWTH NORMAL RESPIRATORY SHONNA 05/13/16 08:50 Aerobic Blood Culture - Preliminary Resulted Blood Peripheral NO GROWTH IN 1 DAY 05/13/16 08:50 Anaerobic Blood Culture - Preliminary Resulted Blood Peripheral NO GROWTH IN 1 DAY 05/13/16 08:56 Aerobic Blood Culture - Preliminary Resulted Blood Peripheral NO GROWTH IN 1 DAY 05/13/16 08:56 Anaerobic Blood Culture - Preliminary Resulted Blood Peripheral NO GROWTH IN 1 DAY 05/13/16 17:30 Influenza Types A,B Antigen (BARBRA) - Final Complete Nasal Washing NEGATIVE FOR FLU A AND B ANTIGEN.... Imaging Abdomen X-Ray 05/13/16 0000 Signed Impressions: Service Date/Time: Friday, May 13, 2016 10:51 - CONCLUSION: Benign abdomen. No evidence of obstruction David Luke MD Head CT 05/12/[id number] Signed Impressions: Service Date/Time: Thursday, May 12, 2016 21:05 - CONCLUSION: Negative noncontrast head CT. Finn Mendez MD Chest X-Ray 05/12/162004 Signed Impressions: Service Date/Time: Thursday, May 12, 2016 20:19 - CONCLUSION: Patchy atelectasis/infiltrate throughout the right lung and mild atelectasis of the left lung base. Appropriate position of the endotracheal tube tip. Finn Mendez MD Physical Exam GENERAL: Awakens easily, answering my questions, NAD SKIN: Warm and dry. No generalized rash or ecchymosis. HEENT: [place] conjunctivae, no petechia or hemorrhage. No scleral icterus. Slightly dry oral mucosa NECK: Supple, nontender, no meningeal signs. CARDIOVASCULAR: Regular rate and rhythm without murmurs, gallops, or rubs. RESPIRATORY: Coarse breath sounds bilaterally. Breath sounds equal bilaterally. No wheezes, rales, or rhonchi. Decreased at the bases. GASTROINTESTINAL: Abdomen soft, slightly globular, non-tender, nondistended, bowel sounds are present and hypoactive. MUSCULOSKELETAL: Extremities without clubbing, cyanosis, or edema. Has brownish pigmentation in both legs. Both feet are well-perfused. NEUROLOGICAL: Awakens easily and interactive. NOn-focal PSYCH: Slightly lethargic, but cooperative LINE: PIV with no evidence of infection : Crespo catheter in place, urine looks clear Assessment & Plan Remarks IMPRESSION Sepsis on admission due to pneumonia, likely aspiration Aspiration PNA Possible UGIB Respiratory failure, tolerating CPAP - possible extubation today Renal insufficiency,, seems chronic, worse likely due to sepsis, plus fluid Known severe depression Hx severe depression and multiple suicide attempts RECOMMENDATION Change Zosyn to Unasyn Follow temps Monitor progress CXR today D/W Nohemi Gomez MD May 15, 2016 08:49
[2016-05-15] MEDS: SODIUM CHLORIDE 0.9% FLUSH 5 ML FLUSH IV FLUSH SCH (08:54)
[2016-05-15] MEDS ORDERED: AMPICILLIN-SULBACTAM INJ 3 GM in SODIUM CHLORIDE 0.9% INJ 100 ML IV SCH (10:00)
--- NOTE | 2016-05-15 10:03 | RADRPT ---
EXAM DATE/TIME: 05/15/2016 08:57 [facility] COMPARISON: CHEST SINGLE AP, May 12, 2016, 20:19. INDICATIONS : Respiratory disease. MEDICAL HISTORY : Hypertension. Gastroesophageal reflux disease. SURGICAL HISTORY : None. ENCOUNTER: Subsequent ACUITY: 1 week PAIN SCORE: 0/10 LOCATION: chest FINDINGS: A single view of the chest demonstrates the lungs to be symmetrically aerated without evidence of mas s, infiltrate or effusion. The cardiomediastinal contours are unremarkable. Osseous structures are intact. CONCLUSION: No acute infiltrates. Hammad Paz MD on May 15, 2016 at 10:01 Board Certified Radiologist. This report was verified electronically.
[2016-05-15] MEDS: DOCUSATE SODIUM 100 MG/10 ML UDC G-TUBE SCH (10:32)
--- NOTE | 2016-05-15 14:23 | PD.CONS ---
Provisional Diagnosis Admission Date May 12, 2016 at 21:04 [place] I. Major depressive disorder, recurrent, severe without psychosis vs bipolar depression vs substance-induced mood disorder [place] II. Borderline personality disorder [place] III. GERD, DM, HTN, pneumonia, acute respiratory failure [place] IV. Multiple recent overdoses [place] V. 40 History of Present Illness Service Psychiatry Consult Requested By Reason for Consult Suicide attempt by overdose Primary Care Physician Unknown HPI The patient is a 80-year-old woman, domiciled alone in [place], divorce, she has 2 kids, retired, with psychiatric history of depression, bipolar disorder, borderline personality disorder, opiate dependence, numerous hospitalizations, last hospitalization was here at [facility] a year ago, records were reviewed, multiple suicide attempts, poor impulse control, conflict in relationships, medical history of diabetes, GERD, hypertension,who presented to the ER brought in by EMS because she had missed an appointment and her psychiatrist was concerned and sent EMS to evaluate her at home. She was found unresponsive with coffee-ground emesis on her shirt and around her mouth and nose. She was intubated for airway protection by EMS and is admitted to ICU now with a diagnosis of aspiration pneumonia, acute respiratory failure, acute renal injury. Patient consulted a psychiatrist to assess suicidal attempt. At the moment of the psychiatric evaluation patient was sedated, sleeping, unable to be awake and unable to cooperate with the psychiatric assessment. However, I had a long conversation with her son Timmy, , who states that her mother has attempted to commit suicide about 6 times in the last 1-2 years. He says that this time she has told him that she just wanted to end it all. He doesn't know the circumstances that may her mother depressed, but he says that she is very impulsive, has conflicted relationships, and he is strongly thinking that she is depressed for some reason but she minimizes her depression he is strongly thinking that her mother is going to end up committing suicide if she is not institutionalized. He is very sure that she is not taking her medication and she is not getting an appropriate outpatient psychiatric care. He wants to meet with psych social worker to start working in discharging his mother, at least to a partial hospitalization institution. Review of Systems ROS Limitations: Uncooperative Past Family Social History Coded Allergies: No Known Allergies (Verified , 01/03/16) Active Scripts Pravastatin Sod (Pravastatin Sodium)80 Mg Tab80 Mg PO DAILY #7 TAB Prov:Matias Esquivel MD 01/17/16 Pantoprazole Sodium (Protonix)20 Mg Tab20 Mg PO DAILY #7 TAB Prov:Matias Esquivel MD 01/17/16 Mirtazapine 15 Mg Tab30 Mg PO HS #7 TAB Ref 1 Prov:Matias Esquivel MD 01/17/16 Metoprolol Succinate ER 50 mg 50 Mg Tab50 Mg PO DAILY #7 TAB Prov:Matias Esquivel MD 01/17/16 Escitalopram Oxalate 20 Mg Tab20 Mg PO DAILY #7 TAB Ref 1 Prov:Matias Esquivel MD 01/17/16 Clonazepam (Klonopin)0.5 Mg Tab0.5 Mg PO HS #7 TAB Ref 1 Prov:Matias Esquivel MD 01/17/16 Carbamazepine (Tegretol 200 Mg Tab)200 Mg [id number] Mg PO HS #7 TAB Ref 1 Prov:Matias Esquivel MD 01/17/16 Reported Medications Chlorhexidine Gluconate (Peridex Oral Rinse)0.12 % Felicitas As Directed 01/03/16 Lamotrigine (Lamictal)25 Mg Tab25 Mg PO DAILY 01/03/16 Pravastatin Sod (Pravastatin Sodium)80 Mg Tab80 Mg PO DAILY 01/03/16 Metoprolol Succinate ER 50 mg 50 Mg Tab50 Mg PO DAILY 01/03/16 Trazodone HCl 100 Mg [id number] Mg PO HS 01/03/16 Omeprazole 20 mg 20 Mg Tab20 Mg PO DAILY 30 Minutes before a meal 01/03/16 Mirtazapine 30 mg (Remeron 30 mg)30 Mg Tab30 Mg PO HS 01/03/16 Venlafaxine Hcl (Effexor Xr)75 Mg Cap75 Mg PO DAILY 01/03/16 Hydrocodone-Acetaminophen 5-325 mg ([place] 5-325 mg)1 Tab1 Tab PO Q6H PRN (PAIN SCALE 1 TO 10) Ref 0 01/03/16 Clonazepam (Klonopin)0.5 Mg Tab0.5 Mg PO HS 01/03/16 Current Medications Medications (Trade) Dose Ordered Sig/Lenny Route Start Time Stop Time Status Last Admin (NS Flush) 2 ml UNSCH PRN IV FLUSH 05/12/16 22:15 (NS Flush) 2 ml BID IV FLUSH 05/13/16 09:00 05/15/16 08:54 (Tylenol) 650 mg Q6H PRN PO 05/12/16 22:15 (Morphine Inj) 2 mg Q2H PRN IV 05/12/16 22:15 (Protonix Inj) 40 mg Q12H IV 05/12/16 23:00 05/15/16 10:32 (Ativan Inj) 1 mg Q1H PRN IV 05/12/16 22:15 (Zofran Inj) 4 mg Q6H PRN IV 05/12/16 22:15 (Reglan Inj) 10 mg Q6H PRN IV 05/12/16 22:15 (Colace Liq) 100 mg Q12H G-TUBE 05/12/16 23:00 05/15/16 10:32 Miscellaneous Information 1 Q361D XX 05/12/16 22:15 05/12/16 22:15 (Chlorhexidine 2% Cloth) 3 pack Taper DAILY@04 TOP 05/13/16 04:00 05/09/17 03:59 05/15/16 00:48 (Chlorhexidine 2% Cloth) 3 pack UNSCH PRN TOP 05/12/16 22:15 (D50w (Vial) Inj) 25 ml UNSCH PRN IV PUSH 05/13/16 07:30 (Glucagon Inj) 1 mg UNSCH PRN OTHER 05/13/16 07:30 (NovoLIN R SUPPLEMENTAL SCALE) 1 Q6H SQ 05/13/16 12:00 Miscellaneous Information SPECIFIC LAB TO BE DRAWN:[facility] LEVEL DATE TO... ONCE ONCE XX 05/16/16 06:00 05/16/16 06:01 (Unasyn Inj/NS Inj) 100 ml @ 200 mls/hr Q8H IV 05/15/16 10:00 05/15/16 10:33 Family History Son denies Social History Patient was born and raised in [facility], she has been living in [place] for the last 8 years, she lives in [place] alone, she has 2 sons, she lives of her pension, her highest level of education is 1 year of college. Physical Exam Vital Signs Vital Signs Date Time Temp Pulse Resp B/P Pulse Ox O2 Delivery O2 Flow Rate FiO2 05/15/16 12:00 98.2 101 17 141/67 90 05/15/16 09:29 Nasal Cannula 4.00 05/14/16 18:00 45 I/O 05/14/16 05/14/16 05/15/16 08:00 16:00 00:00 Intake Total 716 ml 537 ml 90 ml Output Total 500 ml 1950 ml 950 ml Balance 216 ml -1413 ml -860 ml Mental Status Examination Patient sedated, uncooperative Appearance woman, is sleeping, sedated, cooperative Assessment & Plan Problem List: (1) Depression Assessment & Plan: The patient is a 80-year-old woman with psychiatric history of depression, bipolar disorder, borderline personality disorder, opiate dependence, numerous hospitalizations, last hospitalization was here at [facility] a year ago, records were reviewed, multiple suicide attempts , poor impulse control, conflict in relationships, medical history of diabetes, GERD, hypertension,who presented to the ER brought in by EMS because she had missed an appointment and her psychiatrist was concerned and sent EMS to evaluate her at home. As per son patient has admitted that she wanted to and end her life. At the moment of the evaluation patient is uncooperative and sedated, but based in previous documentations, collateral information, and based in the lethality of the overdose patient meets criteria for psychiatric admission for safety and stabilization. I will [place] act the patient and commit her for involuntary admission. I spoke with Dr. Briseno and nurse in charge and we have agreed the patient would benefit of being admitted in the med /psych unit. ICD Code: F32.9 Assessment & Plan Estimated LOS: days Problem Qualifiers (1) Depression: Dwayne Wong MD May 15, 2016 14:23
--- NOTE | 2016-05-15 14:36 | HHI.DS ---
Discharge Summary Admission Date May 12, 2016 at 21:04 Admitting Diagnosis GI bleed/intubated/altered mental status (1) Intentional self poisoning Diagnosis: Principal (2) Respiratory failure, acute ICD Code: J96.00 Diagnosis: Principal (3) Acute kidney injury ICD Code: N17.9 Diagnosis: Principal (4) GI bleeding ICD Code: K92.2 Diagnosis: Principal (5) Depression ICD Code: F32.9 Diagnosis: Secondary (6) Hypertension ICD Code: I10 Diagnosis: Secondary (7) Dyslipidemia ICD Code: E78.5 Diagnosis: Secondary Brief History 80-year-old female with history of psychiatric problems and previous attempt of overdose, severe depressions with a first admission to psychiatry at her 20s, diabetes, GERD, presents to the ER brought in by EMS because she had missed an appointment and her psychiatrist was concerned and sent EMS to evaluate her at home. She was found unresponsive with coffee-ground emesis on her shirt and around her mouth and nose. She was intubated for airway protection by EMS and is admitted to ICU now. UDS positive for opiates CBC/BMP: 05/15/16 0530 05/15/16 0530 Significant Findings Laboratory Tests Test 05/12/16 05/12/16 05/12/16 05/13/16 20:00 20:10 20:32 05:03 Mean Corpuscular Hemoglobin 26.0 PG (27.0-34.0) Mean Corpuscular Hemoglobin 31.8 % Concent (32.0-36.0) Neutrophils (%) (Auto) 89.9 % (16.0-70.0) Lymphocytes (%) (Auto) 3.1 % (9.0-44.0) Neutrophils # (Auto) 9.2 TH/MM3 (1.8-7.7) Lymphocytes # (Auto) 0.3 TH/MM3 (1.0-4.8) Activated Partial 23.4 SEC Thromboplast Time (24.3-30.1) Chloride Level 110 MEQ/L 113 MEQ/L (98-107) (98-107) Blood Urea Nitrogen 43 MG/DL (7-18) 37 MG/DL (7-18) Creatinine 2.26 MG/DL 2.03 MG/DL (0.50-1.00) (0.50-1.00) Estimat Glomerular Filtration 21 ML/MIN (>89) 24 ML/MIN (>89) Rate Random Glucose 139 MG/DL 116 MG/DL (74-106) (74-106) Calcium Level 8.4 MG/DL 8.1 MG/DL (8.5-10.1) (8.5-10.1) Aspartate Amino Transf 12 U/L (15-37) 39 U/L (15-37) (AST/SGOT) Total Protein 6.3 GM/DL 6.3 GM/DL (6.4-8.2) (6.4-8.2) Albumin 3.3 GM/DL 3.1 GM/DL (3.4-5.0) (3.4-5.0) Urine Mucus FEW /lpf (OCC) Urine Opiates Screen POS (NEG) Blood Gas HCO3 20 mmol/L (22-26) Blood Gas Base Excess -4.6 mmol/L (-2-2) Arterial Blood pH 7.33 (7.380-7.420) Arterial Blood Methemoglobin 3.0 % (0-2) Blood Gas Hemoglobin 11.5 G/DL (12.0-16.0) Potassium Level 6.6 MEQ/L (3.5-5.1) Carbon Dioxide Level 20.8 MEQ/L (21.0-32.0) Test 05/13/16 05/13/16 05/13/16 05/14/16 08:56 10:00 15:16 05:39 Hemoglobin 10.9 GM/DL 11.1 GM/DL (11.6-15.3) (11.6-15.3) Hematocrit 34.9 % (35.0-46.0) Mean Corpuscular Hemoglobin 25.5 PG 25.9 PG (27.0-34.0) (27.0-34.0) Mean Corpuscular Hemoglobin 31.1 % 31.1 % Concent (32.0-36.0) (32.0-36.0) Neutrophils (%) (Auto) 85.8 % 81.7 % (16.0-70.0) (16.0-70.0) Lymphocytes # (Auto) 0.8 TH/MM3 0.6 TH/MM3 (1.0-4.8) (1.0-4.8) Chloride Level 115 MEQ/L 117 MEQ/L (98-107) (98-107) Blood Urea Nitrogen 33 MG/DL (7-18) 27 MG/DL (7-18) Creatinine 1.90 MG/DL 1.71 MG/DL (0.50-1.00) (0.50-1.00) Estimat Glomerular Filtration 25 ML/MIN (>89) 29 ML/MIN (>89) Rate Random Glucose 117 MG/DL 141 MG/DL (74-106) (74-106) Calcium Level 7.9 MG/DL 8.4 MG/DL (8.5-10.1) (8.5-10.1) Lactic Acid Level 2.1 mmol/L (0.4-2.0) Platelet Count 135 TH/MM3 (150-450) Lymphocytes (%) (Auto) 8.9 % (9.0-44.0) Sodium Level 147 MEQ/L (136-145) Aspartate Amino Transf 13 U/L (15-37) (AST/SGOT) Total Protein 6.1 GM/DL (6.4-8.2) Albumin 2.6 GM/DL (3.4-5.0) Test 05/14/16 05/15/16 13:04 05:30 Hemoglobin 10.2 GM/DL 10.2 GM/DL (11.6-15.3) (11.6-15.3) Hematocrit 32.3 % 31.8 % (35.0-46.0) (35.0-46.0) Red Blood Count 3.92 MIL/MM3 (4.00-5.30) Mean Corpuscular Hemoglobin 26.1 PG (27.0-34.0) Platelet Count 144 TH/MM3 (150-450) Sodium Level 148 MEQ/L (136-145) Chloride Level 113 MEQ/L (98-107) Blood Urea Nitrogen 22 MG/DL (7-18) Creatinine 1.49 MG/DL (0.50-1.00) Estimat Glomerular Filtration 34 ML/MIN (>89) Rate Aspartate Amino Transf 12 U/L (15-37) (AST/SGOT) Total Protein 6.0 GM/DL (6.4-8.2) Albumin 2.6 GM/DL (3.4-5.0) PE at Discharge GENERAL: Well-nourished, well-developed on NC SKIN: Warm and dry. HEAD: Normocephalic. EYES: No scleral icterus. No injection or drainage. NECK: Supple, trachea midline. No JVD or lymphadenopathy. CARDIOVASCULAR: Regular rate and rhythm without murmurs, gallops, or rubs. RESPIRATORY: Breath sounds equal bilaterally. No accessory muscle use. GASTROINTESTINAL: Abdomen soft, non-tender, nondistended. MUSCULOSKELETAL: No cyanosis, or edema. BACK: Nontender without obvious deformity. No CVA tenderness. Neuro: Alert awake, oriented to person and place. Moves all extremities no focal deficits Transfer Summary 80-year-old female with history of psychiatric problems and previous attempt of overdose, severe depressions with a first admission to psychiatry at her 20s, diabetes, GERD, presents to the ER brought in by EMS because she had missed an appointment and her psychiatrist was concerned and sent EMS to evaluate her at home. She was found unresponsive with coffee-ground emesis on her shirt and around her mouth and nose. She was intubated for airway protection by EMS and is admitted to ICU now. UDS positive only for opiates 05/13 Patient is intubated and sedated with Diprivan. Tmax 101.3. On Protonix drip for ? GI bleed. K 6.6 this morning with Cr: 2.0 from 2.26. 05/14: Remains intubated off sedation. Low-grade fever. Tolerating C Pap trial. Creatinine steadily improving 05/15: Extubated yesterday tolerating well. Patient is able to communicate alert oriented. He refuses to tell me why she overdosed she states that it is possible. Creatinine is improved to 1.5 urine output 3.5 L in 24 hours. Psychiatric consulted -recommended admission to Inpatient psych. WIll DC to Med- psych today Hospital Course See transfer summary Pt Condition on Discharge: Stable Discharge Disposition: Disc to Psych Care Fac Discharge Instructions DIET: Follow Instructions for: Nothing By Mouth Activities you can perform: See Additionl Instruction (Per PT recommendation) Kai Briseno MD May 15, 2016 14:36
[2016-05-16] MEDS ORDERED: PHARMACY ORDERED LAB XX ONE (06:00)
== END 2016-05-15 17:55 | DRG 208 ==
LOC: NEPC 19:57 → NEDA 21:04 → HIME 22:45
PROVIDERS: ADMIT Internal Medicine Critical Care Medicine; ATTEND Internal Medicine Critical Care Medicine
PROC: 5A1945Z Respiratory Ventilation, 24-96 Consecutive Hours (ICD-10-PCS; principal; 2016-05-12)
DX: J96.00 Acute respiratory failure, unspecified whether with hypoxia or hypercapnia (principal); J69.0 Pneumonitis due to inhalation of food and vomit; N17.9 Acute kidney failure, unspecified; A41.9 Sepsis, unspecified organism; G93.40 Encephalopathy, unspecified; K92.2 Gastrointestinal hemorrhage, unspecified; T50.902A Poisoning by unspecified drugs, medicaments and biological substances, intentional self-harm, initial encounter; E87.5 Hyperkalemia; E11.9 Type 2 diabetes mellitus without complications; I10 Essential (primary) hypertension; E78.5 Hyperlipidemia, unspecified; F32.9 Major depressive disorder, single episode, unspecified; K21.9 Gastro-esophageal reflux disease without esophagitis; R11.10 Vomiting, unspecified
CPT/HCPCS: 36600; 43753; 51702; 70450; 71010; 74000; 76937; 80048; 80053; 80202; 80307; 81001; 82140; 82805; 82948; 83605; 83690; 83735; 84443; 85014; 85018; 85025; 85027; 85610; 85730; 86403; 86850; 86900; 86901; 87040; 87070; 87077; 87186; 87205; 87449; 87641; 87804; 93005; 94002; 94003; 94640; 94664; 96374; C9113; J0295; J0610; J1815; J2543; J3370; J7030; J7040; J7050

== ENCOUNTER 2016-05-15 15:23 | Inpatient (IN) | payer MEDICARE ==
[~2016-05-15] VITALS: Ht 162.6 cm; Wt 83.0 kg
[2016-05-15 18:34] VITALS: BP 174/84; PULSE 98; RESP 16; TEMP 98; O2SAT 95
[2016-05-15 18:58] VITALS: BP 174/84; PULSE 98; RESP 18; TEMP 98; O2SAT 95
[2016-05-15] MEDS ORDERED: cloNIDine HCL 0.1 MG TAB PO PRN (19:00)
[2016-05-15] MEDS ORDERED: ALUMINUM/MAGNESIUM/SIMETH 30 ML CUP PO PRN (20:15)
[2016-05-15] MEDS ORDERED: MAGNESIUM HYDROXIDE SUSP 30 ML CUP PO PRN (20:15)
[2016-05-15] MEDS ORDERED: LORazepam 2 MG/ML VIAL - age > 65 yrs IM PRN (20:15)
[2016-05-15] MEDS: LORazepam 0.5 MG TAB age > 65 yrs PO PRN (23:55)
[2016-05-16 05:28] VITALS: BP 151/66; PULSE 101; RESP 18; TEMP 99.5; O2SAT 95
[2016-05-16] MEDS ORDERED: DEXTROSE 50% IN WATER 50 ML VIAL(D50) IV PUSH PRN (09:00)
[2016-05-16] MEDS ORDERED: BISACODYL 10 MG SUPP RECTAL PRN (09:00)
[2016-05-16] MEDS: DOCUSATE SODIUM 100 MG CAP PO SCH ×3 (09:00→20:26)
[2016-05-16] MEDS ORDERED: GLUCAGON 1 MG/ML VIAL OTHER PRN (09:00)
[2016-05-16] MEDS ORDERED: MAGNESIUM HYDROXIDE SUSP 30 ML CUP PO PRN (09:00)
[2016-05-16] MEDS ORDERED: RESP: ALBUTEROL 2.5 MG/IPRATROPIUM 0.5 MG NEB (PRN) NEB (09:15)
[2016-05-16] MEDS: METOPROLOL TARTRATE 50 MG TAB PO SCH ×2 (09:47→20:23)
[2016-05-16] MEDS: PANTOPRAZOLE SOD 40 MG DELAYED RELEASE TAB PO SCH ×2 (09:49→20:23)
--- NOTE | 2016-05-16 10:26 | PD.CONS ---
HPI Service [facility] Consult Requested By Psychiatric team Reason for Consult Assist in medical management, patient with recent overdose, upper GI bleed and aspiration pneumonia Primary Care Physician Unknown Diagnoses: History of Present Illness This is an 80-year-old female patient with a past medical history which includes severe depression and suicide attempts 7, hypertension, dyslipidemia, GERD, diabetic diet which patient reports is diet controlled. Patient is alert and oriented to person place and has poor historian therefore information gathered from patient as well as prior computerized charting. Patient initially presented to the hospital on 05/12/2016 after an attempted suicide attempt with overdose she was found nonresponsive with coffee-ground emesis on her shirt and around her mouth and nose. She was intubated for airway protection by EMS and admitted to ICU. UDS positive only for opiates 05/13 Patient is intubated and sedated with Diprivan. Tmax 101.3. On Protonix drip for ? GI bleed. K 6.6 this morning with Cr: 2.0 from 2.26. 05/14: Remains intubated off sedation. Low-grade fever. Tolerating C Pap trial. Creatinine steadily improving 05/15: Extubated yesterday tolerating well. Patient is able to communicate alert oriented. He refuses to tell me why she overdosed she states that it is possible. Creatinine is improved to 1.5 urine output 3.5 L in 24 hours. Psychiatric consulted Patient transferred to medical psychiatric unit we were then consulted for assistance in medical management. Patient reports she is feeling well overall. Patient does report occasional nonproductive cough. Denies shortness of breath chest pain nausea vomiting diarrhea or constipation. Review of Systems ROS Limitations: Poor Historian Except as stated in HPI: all other systems reviewed are Neg Past Family Social History Allergies: Coded Allergies: No Known Allergies (Verified , 01/03/16) Past Medical History severe depression and suicide attempts 7, hypertension, dyslipidemia, GERD, diabetic diet which patient reports is diet controlled. Past Surgical History Tonsillectomy, appendectomy, hysterectomy Reported Medications Pravastatin Sodium (Pravastatin Sod) 80 Mg Tab 80 Mg PO DAILY Protonix (Pantoprazole Sodium) 20 Mg Tab 20 Mg PO DAILY Mirtazapine 15 Mg Tab 30 Mg PO HS Metoprolol Succinate ER 50 mg (Metoprolol Succinate) 50 Mg Tab 50 Mg PO DAILY Escitalopram Oxalate 20 Mg Tab 20 Mg PO DAILY Klonopin (Clonazepam) 0.5 Mg Tab 0.5 Mg PO HS Tegretol 200 Mg Tab (Carbamazepine) 200 Mg Tab 200 Mg PO HS Peridex Oral Rinse (Chlorhexidine Gluconate) 0.12 % Felicitas DIRECTED Lamictal (Lamotrigine) 25 Mg Tab 25 Mg PO DAILY Pravastatin Sodium (Pravastatin Sod) 80 Mg Tab 80 Mg PO DAILY Metoprolol Succinate ER 50 mg (Metoprolol Succinate) 50 Mg Tab 50 Mg PO DAILY Trazodone Hcl (Trazodone HCl) 100 Mg Tab 200 Mg PO HS Omeprazole 20 mg (Omeprazole) 20 Mg Tab 20 Mg PO DAILY 30 Minutes before a meal Remeron 30 mg (Mirtazapine) 30 Mg Tab 30 Mg PO HS Effexor Xr (Venlafaxine HCl) 75 Mg Cap 75 Mg PO DAILY [place] 5-325 mg (Hydrocodone-Acetaminophen 5-325 mg) 1 Tab 1 Tab PO Q6H PRN Klonopin (Clonazepam) 0.5 Mg Tab 0.5 Mg PO HS Active Ordered Medications Current Medications Medications (Trade) Dose Ordered Sig/Lenny Route Start Time Stop Time Status Last Admin (Catapres) 0.1 mg Q6H PRN PO 05/15/16 19:00 (Ativan) 0.5 mg Q12H PRN PO 05/15/16 20:15 05/15/16 23:55 (Ativan Inj) 0.5 mg Q12H PRN IM 05/15/16 20:15 (Tylenol) 650 mg Q4H PRN PO 05/15/16 20:15 (Milk Of Magnesia Liq) 30 ml DAILY PRN PO 05/15/16 20:15 (Mag-Al Plus Susp Liq) 30 ml Q6H PRN PO 05/15/16 20:15 (D50w (Vial) Inj) 25 ml UNSCH PRN IV PUSH 05/16/16 09:00 (Glucagon Inj) 1 mg UNSCH PRN OTHER 05/16/16 09:00 (Colace) 100 mg BID PO 05/16/16 09:00 (Milk Of Magnesia Liq) 30 ml DAILY PRN PO 05/16/16 09:00 (Dulcolax Supp) 10 mg ONCE PRN RECTAL 05/16/16 09:00 05/19/16 08:59 (Protonix) 40 mg Q12HR PO 05/16/16 09:15 05/16/16 09:49 (Augmentin) 875 mg Q8HR PO 05/16/16 14:00 05/26/16 13:59 (Lopressor) 50 mg Q12HR PO 05/16/16 09:15 05/16/16 09:47 Family History Denies family medical history including diabetes hypertension CAD or cancers Social History Patient denies EtOH use tobacco use or illicit drug use Physical Exam Vital Signs Vital Signs Date Time Temp Pulse Resp B/P Pulse Ox O2 Delivery O2 Flow Rate FiO2 05/16/16 07:32 Nasal Cannula 2.00 05/16/16 05:28 99.5 101 18 151/66 95 05/15/16 18:58 98.0 98 18 174/84 95 05/15/16 18:34 98.0 98 16 174/84 95 Physical Exam GENERAL: This is a well-nourished, well-developed patient, in no apparent distress- alert and oriented to person and place appears to be a poor historian SKIN: Scattered ecchymosis bilateral upper extremities HEAD: Atraumatic. Normocephalic. No temporal or scalp tenderness. EYES: Extraocular motions intact. No scleral icterus. No injection or drainage. CARDIOVASCULAR: Regular rate and rhythm without murmurs, gallops, or rubs. RESPIRATORY: BREATH sounds throughout GASTROINTESTINAL: Abdomen soft, non-tender, nondistended. MUSCULOSKELETAL: Extremities without clubbing, cyanosis, or edema. No joint tenderness, effusion, or edema noted. No calf tenderness. Negative Homans sign bilaterally. NEUROLOGICAL: Awake and alert. No focal deficits appreciated. Motor and sensory grossly within normal limits. 4 out of 5 muscle strength in all muscle groups. Normal speech. Result Diagram: 05/21/1663205/21/16632 Assessment and Plan Assessment and Plan This is an 80-year-old female patient with a past medical history which includes severe depression and suicide attempts 7, hypertension, dyslipidemia, GERD, diabetic diet which patient reports is diet controlled. Patient initially presented to the hospital on 05/12/2016 after an attempted suicide attempt with overdose she was found nonresponsive with coffee-ground emesis on her shirt and around her mouth and nose. She was intubated for airway protection by EMS and admitted to ICU. UDS positive only for opiates extubated to 05/14/2016. Currently admitted to inpatient psychiatric center with consulted for assistance with ongoing medical management. Severe depression with attempted suicide management per psychiatric team Upper GI bleed patient's son has refused EGD Continue PPI twice a day Hemoglobin appears stable No signs of bleeding at this time Aspiration pneumonia patient has received vancomycin Zosyn and Unasyn IV Start Augmentin by mouth 10 days Do nebs every 6 hours and when necessary Titrate oxygen to maintain saturation above 92% Blood cultures gram-positive cocci in one of 2 bottles, no growth 2 days in the other bottle Diabetes Accu-Cheks before meals at bedtime was low-dose sliding scale coverage Diabetic diet CKD avoid nephrotoxic agents continue to monitor BMP Hypertension continue patient's home metoprolol 50 mg every 12 hours Monitor blood pressure trend Constipation bowel regimen DVT prophylaxis early ambulation PT consulted unable to use SCDs are tetanus patient is inpatient psychiatric center unable to use chemical anticoagulation as patient with recent GI bleed Discussed plan of care with patient, nursing Written by Keisha Laboy, acting as scribe for Dr. Zavaleta on 05/16/16 at 12:32. Attending Statement The documentation accurately reflects the work performed [id number] by me on at 12:32 Keisha Laboy May 16, 2016 10:26 Tyrone Garcia MD May 21, 2016 22:39
[2016-05-16 10:29] LABS: ANION GAP 10 MEQ/L (5-15); BICARBONATE 24.5 MEQ/L (21.0-32.0); BLOOD UREA NITROGEN 26 MG/DL (7-18); CHLORIDE 105 MEQ/L (98-107); GLOMERULAR FILTRATION RATE 33 ML/MIN (>89); HDL CHOLESTEROL 55.9 MG/DL (40.0-60.0); LDL CHOLESTEROL 73 MG/DL (0-99); POTASSIUM 4.2 MEQ/L (3.5-5.1); SODIUM (NA) 139 MEQ/L (136-145)
[2016-05-16] MEDS: INSULIN ASPART SUPPLEMENTAL SCALE SQ SCH ×3 (11:00→20:31)
[2016-05-16] MEDS: buPROPion HCL 75 MG TAB PO SCH ×2 (11:45→20:23)
[2016-05-16] MEDS: QUEtiapine FUMARATE 25 MG TAB PO SCH (12:00)
--- NOTE | 2016-05-16 12:03 | HHI.HP ---
Provisional Diagnosis Admission Date May 15, 2016 at 15:23 [place] I. Major depressive disorder, recurrent, without psychosis [place] II. R/O borderline personality disorder Certification of Person's Competence To Provide Express and Informed Consent I have personally examined Chelsey Ochoa , a person being served at [facility] on, May 16, 2016 11:42. Express and informed consent means consent voluntarily given in writing, by a competent person, after sufficient explanation and disclosure of the subject matter involved to enable the person to make a knowing and willful decision without any element of force, fraud, deceit, duress, or other form of constraint or coercion. This person is 18 years of age or older, is not now known to be incompetent to consent to treatment with a guardian advocate, and does not have a health care surrogate or proxy currently making medical treatment decisions. I have found this person to be one of the following: [] Competent to provide express and informed consent, as defined above, for voluntary admission to this facility and is competent to provide express and informed consent for treatment. He/she has the consistent capacity to make well reasoned, willful, and knowing decisions concerning his or her medical or mental health treatment. The person fully and consistently understands the purpose of the admission for examination/placement and is fully capable of personally exercising all rights assured [place] [] Incompetent to provide express and informed consent to voluntary admission, and this is incompetent to provide express and informed consent to treatment. The person must be transferred to involuntary status and a petition for a guardian advocate filed with the Circuit Court. [X] Refusing to provide express and informed consent to voluntary admission but is competent to provide express and informed consent for treatment. The person must be discharged or transferred to involuntary status. Form shall be completed within 24 hours of a person's arrival at the receiving facility and filed in the clinical record of each person: 1. Admitted on a voluntary basis 2. Permitted to provide express and informed consent to his/her own treatment 3. Allowed to transfer from involuntary to voluntary status 4. Prior to permitting a person to consent to his or her own treatment after having been previously found incompetent to consent to treatment. History of Present Illness Capacity: Has Capacity HPI 05/15/2016: The patient is a 80-year-old woman, domiciled alone in [place], divorce, she has 2 kids, retired, with psychiatric history of depression, bipolar disorder, borderline personality disorder, opiate dependence , numerous hospitalizations, last hospitalization was here at [facility] a year ago , records were reviewed, 6 previous attempts, poor impulse control, conflict in relationships, medical history of diabetes, GERD, hypertension,who presented to the ER brought in by EMS because she had missed an appointment and her psychiatrist was concerned and sent EMS to evaluate her at home. She was found unresponsive with coffee-ground emesis on her shirt and around her mouth and nose. She was intubated for airway protection by EMS and is admitted to ICU now with a diagnosis of aspiration pneumonia, acute respiratory failure, acute renal injury. Patient consulted a psychiatrist to assess suicidal attempt. At the moment of the psychiatric evaluation patient was sedated, sleeping, unable to be awake and unable to cooperate with the psychiatric assessment. However, I had a long conversation with her son Timmy, , who states that her mother has attempted to commit suicide about 6 times in the last 1-2 years. He says that this time she has told him that she just wanted to end it all. He doesn't know the circumstances that may her mother depressed, but he says that she is very impulsive, has conflicted relationships, and he is strongly thinking that she is depressed for some reason but she minimizes her depression he is strongly thinking that her mother is going to end up committing suicide if she is not institutionalized. He is very sure that she is not taking her medication and she is not getting an appropriate outpatient psychiatric care. He wants to meet with social services analyst to start working in discharging his mother, at least to a partial hospitalization institution. : Patient was seen today for reevaluation, she was found calm, cooperative and pleasant. Patient explains that today she feels much better, her mood is "reasonable improved since yesterday". She says that in a scale of 1to 10, mood today is 5. She says that "this has been the story is my life in the last 10 years, being okay now, perfectly fine, and hours later, without the reason becoming very depressed and wanting to end my life". Patient explained that her last suicidal attempt was with a genuine intention to . She says that she doesn't want to , but at the same time she cannot control her impulses and her obsessiveness when they emerge in her mind. Patient stated that she has been taking every medication possible in the past, she has been about 3 times in ECT treatment without any significant success. She endorses motivation to engage in a psychotropic regimen that could potentially help her, she is also open for psychotherapy. She has been treated in the community by nurse practitioner Ms. Martinez, she has been treated with trazodone 100 mg, Wellbutrin 150 mg , clonazepam 0.5 mg twice a day. She reports partial compliance with medication. At this moment she denies SI, HI, visual and auditory hallucinations. Patient is fully oriented 3. Review of Systems Constitutional: DENIES: Diaphoretic episodes, Fatigue, Fever, Weight gain, Weight loss, Chills, Dizziness, Change in appetite, Night Sweats Endocrine: DENIES: Abnorml menstrual pattern, Heat/cold intolerance, Polydipsia , Polyuria, Polyphagia Ears, nose, mouth, throat: DENIES: Tinnitus, Hearing loss, Vertigo, Nasal discharge, Oral lesions, Throat pain, Hoarseness, Ear Pain, Running Nose, Epistaxis, Sinus Pain, Toothache, Odynophagia Respiratory: DENIES: Apneas, Cough, Snoring, Wheezing, Hemoptysis, Sputum production, Shortness of breath Cardiovascular: DENIES: Chest pain, Palpitations, Syncope, Dyspnea on Exertion , PND, Lower Extremity Edema, Orthopnea, Claudication Gastrointestinal: DENIES: Abdominal pain, Black stools, Bloody stools, Constipation, Diarrhea, Nausea, Vomiting, Difficulty Swallowing, Anorexia Genitourinary: DENIES: Abnormal vaginal bleeding, Dysmenorrhea, Dyspareunia, Sexual dysfunction, Urinary frequency, Urinary incontinence, Urgency, Hematuria , Dysuria, Nocturia, Vaginal discharge Musculoskeletal: DENIES: Joint pain, Muscle aches, Stiffness, Joint Swelling, Back pain, Neck pain Hematologic/lymphatic: DENIES: Bruising, Lymphadenopathy Immunologic/allergic: DENIES: Eczema, Urticaria Neurologic: DENIES: Abnormal gait, Headache, Localized weakness, Paresthesias, Seizures, Speech Problems, Tremor, Poor Balance Psychiatric: DENIES: Anxiety, Confusion, Mood changes, Depression, Hallucinations, Agitation, Suicidal Ideation, Homicidal Ideation, Delusions Past Psych History Violence risk - self (6 mos) Elevated risk Substance Abuse History Drugs/Alcohol past 12 months Patient denies alcohol and illegal substance use Past Family Social History Coded Allergies: No Known Allergies (Verified , 01/03/16) Active Scripts Pravastatin Sod (Pravastatin Sodium)80 Mg Tab80 Mg PO DAILY #7 TAB Prov:Matias Esquivel MD 01/17/16 Pantoprazole Sodium (Protonix)20 Mg Tab20 Mg PO DAILY #7 TAB Prov:Matias Esquivel MD 01/17/16 Mirtazapine 15 Mg Tab30 Mg PO HS #7 TAB Ref 1 Prov:Matias Esquivel MD 01/17/16 Metoprolol Succinate ER 50 mg 50 Mg Tab50 Mg PO DAILY #7 TAB Prov:Matias Esquivel MD 01/17/16 Escitalopram Oxalate 20 Mg Tab20 Mg PO DAILY #7 TAB Ref 1 Prov:Matias Esquivel MD 01/17/16 Clonazepam (Klonopin)0.5 Mg Tab0.5 Mg PO HS #7 TAB Ref 1 Prov:Matias Esquivel MD 01/17/16 Carbamazepine (Tegretol 200 Mg Tab)200 Mg [id number] Mg PO HS #7 TAB Ref 1 Prov:Matias Esquivel MD 01/17/16 Reported Medications Chlorhexidine Gluconate (Peridex Oral Rinse)0.12 % Felicitas As Directed 01/03/16 Lamotrigine (Lamictal)25 Mg Tab25 Mg PO DAILY 01/03/16 Pravastatin Sod (Pravastatin Sodium)80 Mg Tab80 Mg PO DAILY 01/03/16 Metoprolol Succinate ER 50 mg 50 Mg Tab50 Mg PO DAILY 01/03/16 Trazodone HCl 100 Mg [id number] Mg PO HS 01/03/16 Omeprazole 20 mg 20 Mg Tab20 Mg PO DAILY 30 Minutes before a meal 01/03/16 Mirtazapine 30 mg (Remeron 30 mg)30 Mg Tab30 Mg PO HS 01/03/16 Venlafaxine Hcl (Effexor Xr)75 Mg Cap75 Mg PO DAILY 01/03/16 Hydrocodone-Acetaminophen 5-325 mg ([place] 5-325 mg)1 Tab1 Tab PO Q6H PRN (PAIN SCALE 1 TO 10) Ref 0 01/03/16 Clonazepam (Klonopin)0.5 Mg Tab0.5 Mg PO HS 01/03/16 Current Medications Medications (Trade) Dose Ordered Sig/Lenny Route Start Time Stop Time Status Last Admin (Catapres) 0.1 mg Q6H PRN PO 05/15/16 19:00 (Ativan) 0.5 mg Q12H PRN PO 05/15/16 20:15 05/15/16 23:55 (Ativan Inj) 0.5 mg Q12H PRN IM 05/15/16 20:15 (Tylenol) 650 mg Q4H PRN PO 05/15/16 20:15 (Milk Of Magnesia Liq) 30 ml DAILY PRN PO 05/15/16 20:15 (Mag-Al Plus Susp Liq) 30 ml Q6H PRN PO 05/15/16 20:15 (D50w (Vial) Inj) 25 ml UNSCH PRN IV PUSH 05/16/16 09:00 (Glucagon Inj) 1 mg UNSCH PRN OTHER 05/16/16 09:00 (Colace) 100 mg BID PO 05/16/16 09:00 (Milk Of Magnesia Liq) 30 ml DAILY PRN PO 05/16/16 09:00 (Dulcolax Supp) 10 mg ONCE PRN RECTAL 05/16/16 09:00 05/19/16 08:59 (Protonix) 40 mg Q12HR PO 05/16/16 09:15 05/16/16 09:49 (Augmentin) 875 mg Q8HR PO 05/16/16 14:00 05/26/16 13:59 (Lopressor) 50 mg Q12HR PO 05/16/16 09:15 05/16/16 09:47 Family History She denies Social History Patient was born and raised in [facility], she has been living in [place] for the last 8 years, she lives in [place] alone, she has 2 sons, she lives of her pension, her highest level of education is 1 year of college Physical Exam Vital Signs Vital Signs Date Time Temp Pulse Resp B/P Pulse Ox O2 Delivery O2 Flow Rate FiO2 05/16/16 10:37 Nasal Cannula 3.00 05/16/16 05:28 99.5 101 18 151/66 95 I/O 05/15/16 05/15/16 05/16/16 08:00 16:00 00:00 Intake Total 120 ml Balance 120 ml Mental Status Examination Appearance Overweight woman, age-appropriate, [facility], good hygiene, calm, cooperative and pleasant Speech: Unremarkable Orientation: x3 Memory: Unremarkable Thought Process: Logical Thought Content: Unremarkable Hallucination Type: None Suicidal Ideation: No Previous Suicide Attempts: Yes Homicidal Ideation: No Judgement: WNL Affect: Good Mood: Appropriate Motor Activity: Normal gait Assessment & Plan Problem List: (1) Depression Assessment & Plan: The patient is a 80-year-old woman with psychiatric history of depression, bipolar disorder, borderline personality disorder, opiate dependence, numerous hospitalizations, last hospitalization was here at [facility] a year ago, records were reviewed, 3 courses of ECT treatment, multiple suicide attempts, poor impulse control, conflict in relationships, medical history of diabetes, GERD, hypertension,who presented to the ER brought in by EMS because she had missed an appointment and her psychiatrist was concerned and sent EMS to evaluate her at home. On psychiatric reevaluation today the patient seems to be superficial, she denies depressive symptoms, she reports improved mood, denies suicidal or homicidal ideation, denies visual and auditory hallucinations. Patient confirms that recent overdose was with the intention to commit suicide, she does not seem to be mindful about the circumstances that led tried to commit suicide so frequently. Patient seems to be minimizing her mood symptoms. She represents an increased risk of suicidality and needs psychiatric admission for stabilization and safety. demolition worker intervention to completed psychosocial assessment, psychotherapy and to start to work in a safe discharge plan. Will restart Trazodone 50 g at bedtime, Wellbutrin 75 mg twice a day, clonazepam 0.5 mg twice a day, which at Seroquel 25 mg twice a day to help with mood swings, and as a antidepressant coadjuvant. Extensive psychoeducation, brief supportive psychotherapy provided. Would consider hospitalist to continue medical treatment and also will consult psychiatry for second opinion. ICD Code: F32.9 Assessment & Plan Estimated LOS: days Problem Qualifiers (1) Depression: Dwayne Wong MD May 16, 2016 12:03
[2016-05-16] MEDS: RESP: ALBUTEROL 2.5 MG/IPRATROPIUM 0.5 MG NEB (SCH) NEB ×2 (13:09→20:00)
[2016-05-16] MEDS: AMOXICILLIN/CLAVULANATE K 875 MG TAB PO SCH ×2 (14:00→21:10)
[2016-05-16] MEDS: ACETAMINOPHEN 325 MG TAB PO PRN (16:07)
[2016-05-16 17:12] VITALS: BP 150/80; PULSE 92; RESP 16; TEMP 98.9; O2SAT 96
[2016-05-16] MEDS ORDERED: traZODone HCL 50 MG TAB PO SCH (21:00)
[2016-05-16] MEDS: LORazepam 0.5 MG TAB age > 65 yrs PO PRN (22:27)
[2016-05-17] MEDS: AMOXICILLIN/CLAVULANATE K 875 MG TAB PO SCH (05:54)
[2016-05-17] MEDS: INSULIN ASPART SUPPLEMENTAL SCALE SQ SCH ×4 (05:55→20:39)
[2016-05-17 06:12] VITALS: BP 140/71; PULSE 88; RESP 16; TEMP 98.6; O2SAT 91
[2016-05-17 08:23] VITALS: O2SAT 94
[2016-05-17] MEDS: RESP: ALBUTEROL 2.5 MG/IPRATROPIUM 0.5 MG NEB (SCH) NEB ×3 (08:23→20:10)
[2016-05-17] MEDS: buPROPion HCL 75 MG TAB PO SCH (09:00)
[2016-05-17] MEDS: QUEtiapine FUMARATE 25 MG TAB PO SCH ×2 (09:25→12:22)
[2016-05-17] MEDS: METOPROLOL TARTRATE 50 MG TAB PO SCH ×2 (09:25→20:33)
[2016-05-17] MEDS: DOCUSATE SODIUM 100 MG CAP PO SCH ×2 (09:25→20:32)
[2016-05-17] MEDS: PANTOPRAZOLE SOD 40 MG DELAYED RELEASE TAB PO SCH ×2 (09:25→20:32)
[2016-05-17 09:34] VITALS: BP 125/75; PULSE 105; RESP 22; TEMP 97.5; O2SAT 93
[2016-05-17 10:00] LABS: HEMOGLOBIN A1b 1.1 %; HEMOGLOBIN Ao 82.7 %; HEMOGLOBIN F 1.2 %; HEMOGLOBIN LA1C 2.5 %; HEMOGLOBIN P3 6.4 %
[2016-05-17] MEDS ORDERED: CLON0.5T PO (10:21)
[2016-05-17] MEDS ORDERED: TRAZ100T4 PO (10:21)
[2016-05-17] MEDS ORDERED: METO50TA11 PO (10:21)
[2016-05-17] MEDS ORDERED: PRAV80TA2 PO (10:21)
[2016-05-17] MEDS ORDERED: MIRT30TA PO (10:21)
--- NOTE | 2016-05-17 10:40 | HHI.PR ---
Subjective Remarks Follow up Upper GI bleed, DM, HTN and asp pneumonia. Patient resting in bed in no acute distress at this time on RA. Patient did require more oxygen via NC through the night. Patient reports occasional nonproductive cough. Patient denies SOB, chest pain, N/V/D/C, fever or chills. Objective Vitals Vital Signs Date Time Temp Pulse Resp B/P Pulse Ox O2 Delivery O2 Flow Rate FiO2 05/17/16 09:34 97.5 105 22 125/75 93 05/17/16 08:23 94 Nasal Cannula 1.00 05/17/16 08:00 93 Nasal Cannula 2.00 05/17/16 06:12 98.6 88 16 140/71 91 05/16/16 19:00 93 Nasal Cannula 3.00 05/16/16 17:12 98.9 92 16 150/80 96 I/O 05/16/16 05/16/16 05/16/16 05/17/16 05/17/16 05/17/16 07:00 15:00 23:00 07:00 15:00 23:00 Intake Total 840 ml 360 ml 360 ml Output Total 850 ml Balance -10 ml 360 ml 360 ml Intake Oral 840 ml 360 ml 360 ml Output Urine Total 850 ml # Voids 2 1 1 # Bowel Movements 1 0 0 Result Diagram: 05/16/16904 Objective Remarks GENERAL: This is a well-nourished, well-developed patient, in no apparent distress- alert and oriented to person and place appears to be a poor historian SKIN: Scattered ecchymosis bilateral upper extremities HEAD: Atraumatic. Normocephalic. No temporal or scalp tenderness. EYES: Extraocular motions intact. No scleral icterus. No injection or drainage. CARDIOVASCULAR: Regular rate and rhythm without murmurs, gallops, or rubs. RESPIRATORY: crackles LLL GASTROINTESTINAL: Abdomen soft, non-tender, nondistended. MUSCULOSKELETAL: Extremities without clubbing, cyanosis, or edema. No joint tenderness, effusion, or edema noted. No calf tenderness. Negative Homans sign bilaterally. NEUROLOGICAL: Awake and alert. No focal deficits appreciated. Motor and sensory grossly within normal limits. 4 out of 5 muscle strength in all muscle groups. Normal speech. A/P Assessment and Plan This is an 80-year-old female patient with a past medical history which includes severe depression and suicide attempts 7, hypertension, dyslipidemia, GERD, diabetic diet which patient reports is diet controlled. Patient initially presented to the hospital on 05/12/2016 after an attempted suicide attempt with overdose she was found nonresponsive with coffee-ground emesis on her shirt and around her mouth and nose. She was intubated for airway protection by EMS and admitted to ICU. UDS positive only for opiates extubated to 05/14/2016. Currently admitted to inpatient psychiatric center with consulted for assistance with ongoing medical management. Severe depression with attempted suicide management per psychiatric team Upper GI bleed patient's son has refused EGD Continue PPI twice a day Hemoglobin appears stable No signs of bleeding at this time Aspiration pneumonia patient has received vancomycin Zosyn and Unasyn IV required more oxygen support through the night will DC Augmentin by mouth and start Unasyn IV Do nebs every 6 hours and when necessary Titrate oxygen to maintain saturation above 92% Blood cultures gram-positive cocci in one of 2 bottles, no growth 4 days in the other bottle CXR ordered lasix 20 mg PO x 1 and recheck BMP in AM Diabetes Accu-Cheks before meals at bedtime was low-dose sliding scale coverage Diabetic diet CKD avoid nephrotoxic agents continue to monitor BMP Hypertension continue patient's home metoprolol 50 mg every 12 hours Monitor blood pressure trend Constipation bowel regimen DVT prophylaxis early ambulation PT consulted unable to use SCDs are tetanus patient is inpatient psychiatric center unable to use chemical anticoagulation as patient with recent GI bleed Discussed plan of care with patient, nursing Written by Keisha Laboy, acting as scribe for Dr. Zavaleta on 05/17/16 at 10:38. Attending Statement The documentation accurately reflects the work performed [id number] by me on at 10:38. Keisha Laboy May 17, 2016 10:40 Tyrone Garcia MD May 21, 2016 16:28
[2016-05-17] MEDS ORDERED: AMPICILLIN-SULBACTAM INJ 3 GM VIAL IM SCH (11:00)
[2016-05-17] MEDS ORDERED: FUROSEMIDE 20 MG TAB PO ONE (11:00)
[2016-05-17] MEDS ORDERED: AMPICILLIN/SULBAC 3 GM/NS 100 ML IV SCH ×2 (13:00)
[2016-05-17] MEDS: AMPICILLIN-SULBACTAM INJ 3 GM in SODIUM CHLORIDE 0.9% INJ 100 ML IV SCH (13:08)
--- NOTE | 2016-05-17 13:22 | HHI.PYPN ---
Subjective Remarks Patient was seen today for psychiatric evaluation along with nurse in charge, patient was found in her bed, she is calm and cooperative, she says that she has been doing better, having problems sleeping at night, she says that she is missing her Remeron and clonazepam at bedtime. At this moment she denies suicidal or homicidal ideation, she denies visual and auditory hallucinations. Patient is fully oriented 3, no gross cognitive impairment observed. No agitation, aggressive behavior reported. Review of Systems Other No somatic complaint Objective Alert: Yes [place]: Person, Place, Date, Situation Mood: Calm Affect: Euthymic Memory Intact: Immediate, Recent, Remote Hallucinations: Other (denies) Delusions: No Delusion Type: Other (none) Suicidal: Ideation (she denies) Homicidal: Ideation (she denies) Insight/Judgement fair Vitals/IOs Vital Signs Date Time Temp Pulse Resp B/P Pulse Ox O2 Delivery O2 Flow Rate FiO2 05/17/16 11:39 93 Room Air 05/17/16 09:34 97.5 105 22 125/75 05/17/16 08:23 1.00 Intake and Output 05/16/16 05/16/16 05/17/16 08:00 16:00 00:00 Intake Total 720 ml 360 ml Output Total 850 ml Balance -130 ml 360 ml Assessment & Plan Problem List: (1) Depression Assessment & Plan: Will discontinue Wellbutrin twice a day, Will add Remeron 30 mg at bedtime, clonazepam 0.5 mg at bedtime to help with sleep ICD Code: F32.9 Assessment & Plan Estimated LOS: days Justification for Cont. Inpt. Patient needs to continue psychiatric hospitalization for stabilization, medication adjustment, to coordinate a safe discharge. Problem Qualifiers (1) Depression: Dwayne Wong MD May 17, 2016 13:22
[2016-05-17] MEDS: clonazePAM 0.5 MG TAB PO SCH ×2 (14:00→20:32)
[2016-05-17 17:08] VITALS: BP 122/74; PULSE 90; RESP 20; TEMP 97.4; O2SAT 94
--- NOTE | 2016-05-17 17:35 | HHI.PYPN ---
Subjective Remarks This is a request for second opinion for Dr. Wong. Patient was seen, case discussed with nursing, admission note reviewed. Patient's mood continues to improve. She is less depressed today compared to admission. Insight is good she realizes she had a suicide attempt and says today that she strongly regrets her actions. His compliant with her medications. Today she denies suicidal ideation intent or plan Objective Alert: Yes [place]: Person, Place, Date, Situation Mood: Calm Affect: Euthymic Memory Intact: Immediate, Recent, Remote Hallucinations: Other (denies) Delusions: No Delusion Type: Other (none) Suicidal: Ideation (she denies) Homicidal: Ideation (she denies) Insight/Judgement Fair Vitals/IOs Vital Signs Date Time Temp Pulse Resp B/P Pulse Ox O2 Delivery O2 Flow Rate FiO2 05/17/16 17:08 97.4 90 20 122/74 94 05/17/16 11:39 Room Air 05/17/16 08:23 1.00 Intake and Output 05/16/16 05/16/16 05/17/16 08:00 16:00 00:00 Intake Total 720 ml 360 ml Output Total 850 ml Balance -130 ml 360 ml Assessment & Plan Problem List: (1) Depression ICD Code: F32.9 Assessment & Plan I agree with first opinion to continue petition. Criteria include recent suicide attempt and history of multiple suicide attempts Justification for Cont. Inpt. Patient will decompensate in a less restrictive setting Problem Qualifiers (1) Depression: Yan Noel DO May 17, 2016 17:35
[2016-05-17 20:10] VITALS: O2SAT 93
[2016-05-17] MEDS: traZODone HCL 100 MG TAB PO SCH (20:33)
[2016-05-17] MEDS: LORazepam 0.5 MG TAB age > 65 yrs PO PRN (20:49)
[2016-05-17] MEDS ORDERED: MIRTAZAPINE 15 MG TAB PO SCH (21:00)
[2016-05-18] MEDS: AMPICILLIN-SULBACTAM INJ 3 GM in SODIUM CHLORIDE 0.9% INJ 100 ML IV SCH ×2 (00:59→13:00)
[2016-05-18] MEDS: INSULIN ASPART SUPPLEMENTAL SCALE SQ SCH ×4 (05:32→21:00)
[2016-05-18 06:03] LABS: BICARBONATE 22.4 MEQ/L (21.0-32.0)
[2016-05-18 06:10] VITALS: BP 104/72; PULSE 107; RESP 22; TEMP 97.3; O2SAT 93
[2016-05-18 07:46] VITALS: O2SAT 90
[2016-05-18] MEDS: RESP: ALBUTEROL 2.5 MG/IPRATROPIUM 0.5 MG NEB (SCH) NEB ×3 (07:46→19:22)
[2016-05-18] MEDS: clonazePAM 0.5 MG TAB PO SCH ×2 (09:00→20:55)
[2016-05-18] MEDS: METOPROLOL TARTRATE 50 MG TAB PO SCH ×2 (09:00→21:00)
[2016-05-18] MEDS: PANTOPRAZOLE SOD 40 MG DELAYED RELEASE TAB PO SCH ×2 (09:00→20:54)
[2016-05-18] MEDS: QUEtiapine FUMARATE 25 MG TAB PO SCH ×2 (09:00→12:00)
[2016-05-18] MEDS: DOCUSATE SODIUM 100 MG CAP PO SCH ×2 (09:00→20:55)
--- NOTE | 2016-05-18 09:34 | RADRPT ---
EXAM DATE/TIME: 05/18/2016 08:57 [facility] COMPARISON: CHEST SINGLE AP, May 15, 2016, 8:57. INDICATIONS : Short of breath MEDICAL HISTORY : Hypertension. Gastroesophageal reflux disease. SURGICAL HISTORY : None. ENCOUNTER: Subsequent ACUITY: 1 week PAIN SCORE: Non-responsive. LOCATION: Bilateral chest FINDINGS: A single view of the chest demonstrates minimal bibasilar subsegmental atelectasis. Heart normal in s ize.. Osseous structures are intact. CONCLUSION: 1. Minimal bibasilar subsegmental atelectasis. Zander Floyd MD on May 18, 2016 at 9:32 Board Certified Radiologist. This report was verified electronically.
--- NOTE | 2016-05-18 11:24 | HHI.PR ---
Subjective Remarks Follow up on UGIB, DM, HTN and aspiration PNA. Patient currently on Unasyn. H/ O coffee ground emesis but patient and son refused EGD. No further episodes. Reports not sleeping well so more tired this am. States cough has improved some. Denies any chest pain or SOB. Objective Vitals Vital Signs Date Time Temp Pulse Resp B/P Pulse Ox O2 Delivery O2 Flow Rate FiO2 05/18/16 07:46 90 Nasal Cannula 2.00 05/18/16 06:10 97.3 107 22 104/72 93 05/17/16 20:10 93 Nasal Cannula 2.00 05/17/16 20:00 Room Air 05/17/16 17:08 97.4 90 20 122/74 94 05/17/16 11:39 93 Room Air I/O 05/17/16 05/17/16 05/17/16 05/18/16 05/18/16 05/18/16 07:00 15:00 23:00 07:00 15:00 23:00 Intake Total 360 ml 840 ml 480 ml 240 ml Balance 360 ml 840 ml 480 ml 240 ml Intake Oral 360 ml 840 ml 480 ml 120 ml IV Total 120 ml # Voids 1 3 1 # Bowel Movements 0 Result Diagram: 05/18/16 0530 Imaging Last 48 hours Impressions Chest X-Ray 05/18/16 0000 Signed Impressions: Service Date/Time: Wednesday, May 18, 2016 08:57 - CONCLUSION: 1. Minimal bibasilar subsegmental atelectasis. Zander Floyd MD Objective Remarks GENERAL: This is a well-nourished, well-developed patient, in no apparent distress- alert and oriented to person and place appears to be a poor historian SKIN: Scattered ecchymosis bilateral upper extremities HEAD: Atraumatic. Normocephalic. No temporal or scalp tenderness. EYES: Extraocular motions intact. No scleral icterus. No injection or drainage. CARDIOVASCULAR: Regular rate and rhythm without murmurs, gallops, or rubs. RESPIRATORY: clear to auscultation bilaterally. GASTROINTESTINAL: Abdomen soft, non-tender, nondistended. MUSCULOSKELETAL: Extremities without clubbing, cyanosis, or edema. No joint tenderness, effusion, or edema noted. No calf tenderness. NEUROLOGICAL: Awake and alert. No focal deficits appreciated. Motor and sensory grossly within normal limits. 4 out of 5 muscle strength in all muscle groups. Normal speech. Medications and IVs Current Medications Medications (Trade) Dose Ordered Sig/Lenny Route Start Time Stop Time Status Last Admin (Catapres) 0.1 mg Q6H PRN PO 05/15/16 19:00 (Ativan) 0.5 mg Q12H PRN PO 05/15/16 20:15 05/17/16 20:49 (Ativan Inj) 0.5 mg Q12H PRN IM 05/15/16 20:15 (Tylenol) 650 mg Q4H PRN PO 05/15/16 20:15 05/16/16 16:07 (Milk Of Magnesia Liq) 30 ml DAILY PRN PO 05/15/16 20:15 (Mag-Al Plus Susp Liq) 30 ml Q6H PRN PO 05/15/16 20:15 (D50w (Vial) Inj) 25 ml UNSCH PRN IV PUSH 05/16/16 09:00 (Glucagon Inj) 1 mg UNSCH PRN OTHER 05/16/16 09:00 (Colace) 100 mg BID PO 05/16/16 09:00 05/18/16 09:00 (Milk Of Magnesia Liq) 30 ml DAILY PRN PO 05/16/16 09:00 (Dulcolax Supp) 10 mg ONCE PRN RECTAL 05/16/16 09:00 05/19/16 08:59 (Protonix) 40 mg Q12HR PO 05/16/16 09:15 05/18/16 09:00 (Lopressor) 50 mg Q12HR PO 05/16/16 09:15 05/18/16 09:00 Quetiapine Fumarate 25 mg 25 mg BID@09,12 PO 05/16/16 12:00 05/18/16 09:00 (Unasyn Inj/NS Inj) 100 ml @ 200 mls/hr Q12H IV 05/17/16 13:00 05/18/16 00:59 (Desyrel) 100 mg HS PO 05/17/16 21:00 05/17/16 20:33 (Remeron) 15 mg HS PO 05/17/16 21:00 05/17/16 20:32 (KlonoPIN) 0.5 mg Q12HR PO 05/17/16 14:00 05/18/16 09:00 A/P Assessment and Plan This is an 80-year-old female patient with a past medical history which includes severe depression and suicide attempts 7, hypertension, dyslipidemia, GERD, diabetic diet which patient reports is diet controlled. Patient initially presented to the hospital on 05/12/2016 after an attempted suicide attempt with overdose she was found nonresponsive with coffee-ground emesis on her shirt and around her mouth and nose. She was intubated for airway protection by EMS and admitted to ICU. UDS positive only for opiates extubated to 05/14/2016. Currently admitted to inpatient psychiatric center with consulted for assistance with ongoing medical management. Severe depression with attempted suicide management per psychiatric team Upper GI bleed patient's son has refused EGD Continue PPI twice a day Hemoglobin appears stable No signs of bleeding at this time Aspiration pneumonia patient has received vancomycin Zosyn and Unasyn IV continue on Unasyn IV Duonebs every 6 hours and when necessary Titrate oxygen to maintain saturation above 92% - O2 sats running at 92% on 2L currently Blood cultures Staph Hominis in one of 2 bottles, no growth 4 days in the other bottle, ID consulted CXR ordered showing minimal bibasilar subsegmental atelectasis lasix 20 mg PO x 1 given yesterday add Mucinex po BID Encourage use of IS at the bedside PT eval/tx recheck CBC in am Diabetes good control with blood sugars running 99 - 116 Accu-Cheks before meals at bedtime was low-dose sliding scale coverage Diabetic diet CKD avoid nephrotoxic agents slight bump in creatinine following Lasix dose - 1.49 -> 1.52 -> 1.57 continue to monitor BMP, am lab ordered Hypertension continue patient's home metoprolol 50 mg every 12 hours good control at present Monitor blood pressure trend Constipation bowel regimen last BM 05/16 MOM dose now Miralax daily to follow continue on po Colace daily DVT prophylaxis early ambulation PT consulted unable to use SCDs as patient is inpatient psychiatric center unable to use chemical anticoagulation as patient with recent GI bleed Discussed plan of care with patient, nursing Discussed with Dr. Waqar Peck,Dori CHO May 18, 2016 11:24
[2016-05-18] MEDS ORDERED: MAGNESIUM HYDROXIDE SUSP 30 ML CUP PO ONE (11:30)
[2016-05-18] MEDS: guaiFENesin E.R. 600 MG TAB PO SCH ×2 (12:00→20:54)
--- NOTE | 2016-05-18 14:54 | HHI.PYPN ---
Subjective Remarks Patient was seen today for psychiatric reevaluation along with director of social work Chelsey, therapies Mr. Rosado, and nurse in charge. Previously patient has been discussed widely in treatment team. On evaluation patient is calm, cooperative and pleasant, she is states that she is having difficulty at night sleeping, last night she is sleeping more than 3 hours. She describes her mood as "fine", she denies depression, she denies suicidal ideation, she denies homicidal ideation, she denies visual and auditory hallucinations. She is fully oriented 3, compliant with medications, no agitation or aggressive behavior observed or reported. Review of Systems Other No somatic complaints Objective Alert: Yes [place]: Person, Place, Date, Situation Mood: Calm Affect: Euthymic Memory Intact: Immediate, Recent, Remote Hallucinations: Other (denies) Delusions: No Delusion Type: Other (none) Suicidal: Ideation (she denies) Homicidal: Ideation (she denies) Insight/Judgement fair Labs Test 05/18/16 05:30 Sodium Level 142 MEQ/L Potassium Level 4.0 MEQ/L Chloride Level 108 MEQ/L Carbon Dioxide Level 22.4 MEQ/L Anion Gap 12 MEQ/L Blood Urea Nitrogen 35 MG/DL Creatinine 1.57 MG/DL Estimat Glomerular Filtration 32 ML/MIN Rate Random Glucose 99 MG/DL Calcium Level 9.0 MG/DL Vitals/IOs Vital Signs Date Time Temp Pulse Resp B/P Pulse Ox O2 Delivery O2 Flow Rate FiO2 05/18/16 13:35 Room Air 05/18/16 07:46 90 2.00 05/18/16 06:10 97.3 107 22 104/72 Intake and Output 05/17/16 05/17/16 05/18/16 08:00 16:00 00:00 Intake Total 360 ml 840 ml 480 ml Balance 360 ml 840 ml 480 ml Assessment & Plan Problem List: (1) Depression Assessment & Plan: Will increase Seroquel to 50 mg twice a day, will increase Remeron to 30 mg at bedtime, to help with depression and also to help with sleep. ICD Code: F32.9 Assessment & Plan Estimated LOS: days Justification for Cont. Inpt. Patient had recently attempted to commit suicide for the seventh time in the last year, still showing symptomatology of depression, poor insight, needs hospitalization for stabilization Problem Qualifiers (1) Depression: Dwayne Wong MD May 18, 2016 14:54
--- NOTE | 2016-05-18 16:25 | PD.CONS ---
History of Present Illness Service Infectious disease Consult Requested By Antonia Jack Reason for Consult Evaluate patient with positive blood culture Primary Care Physician Unknown Diagnoses: History of Present Illness Patient seen and examined. Records reviewed. Patient is an 80-year-old female initially admitted to [facility] ICU after she was found unresponsive and with emesis. She was intubated and admitted to the hospital. She was successfully extubated and has been doing well on nasal O2. Her chest x-ray showed evidence of patchy infiltrates. Aspiration pneumonia was being entertained, and she was put on empiric antibiotics. Her sputum culture grew normal respiratory khris. She had 2 blood cultures done on admission and 1 out of the 2 blood culture had staph hominis. After she was extubated, it was later found out that patient had drug overdose for suicidal attempt. Patient has known history of major depression and has had multiple suicidal attempts in the past with drug overdose that had required intubation. She stabilized medically, and was admitted to the psychiatric unit on May 15. Patient has not been febrile. Patient states that she has some mild coughing and not really bringing up a lot of phlegm. She is on nasal O2. Patient currently is on IV Unasyn. She denies any diarrhea, and states that she is constipated. She denies any chest pain. She is voiding without any problem. Infectious disease consultation has been requested to evaluate the patient. Review of Systems Constitutional: DENIES: Fever, Chills, Change in appetite Eyes: DENIES: Eye pain Ears, nose, mouth, throat: DENIES: Nasal discharge, Oral lesions, Throat pain, Ear Pain, Running Nose, Sinus Pain Respiratory: COMPLAINS OF: Cough, DENIES: Wheezing, Hemoptysis, Sputum production, Shortness of breath Cardiovascular: DENIES: Chest pain, Palpitations Gastrointestinal: COMPLAINS OF: Constipation, DENIES: Abdominal pain, Diarrhea , Nausea, Vomiting, Difficulty Swallowing Genitourinary: DENIES: Hematuria, Dysuria Musculoskeletal: DENIES: Joint pain, Muscle aches, Back pain Integumentary: DENIES: Rash Hematologic/lymphatic: COMPLAINS OF: Bruising Immunologic/allergic: DENIES: Urticaria Neurologic: DENIES: Headache Psychiatric: COMPLAINS OF: Depression, DENIES: Hallucinations, Agitation Past Family Social History Allergies: Coded Allergies: No Known Allergies (Verified , 01/03/16) Past Medical History Major depression, has had prior ECT treatment Previous suicidal attempt, drug overdose Hypertension Hyperlipidemia Diabetes GERD Past Surgical History Tonsillectomy Hysterectomy Appendectomy Abdominoplasty Active Ordered Medications Tylenol Antacids Albuterol Unasyn Dulcolax Klonopin Catapres Colace Mucinex Insulin Ativan MOM Lopressor Remeron Protonix MiraLAX Seroquel Desyrel Social History No smoking Alcohol abuse No drug use Physical Exam Vital Signs Vital Signs Date Time Temp Pulse Resp B/P Pulse Ox O2 Delivery O2 Flow Rate FiO2 05/18/16 13:35 Room Air 05/18/16 07:46 90 Nasal Cannula 2.00 05/18/16 06:10 97.3 107 22 104/72 93 05/17/16 20:10 93 Nasal Cannula 2.00 05/17/16 20:00 Room Air 05/17/16 17:08 97.4 90 20 122/74 94 Physical Exam GENERAL: This is a well-nourished, well-developed female, awake and alert, not in any respiratory distress. SKIN: Cool and dry. No generalized rash. She has ecchymosis in her upper extremities from previous venipuncture sites. HEAD: Atraumatic. Normocephalic. No temporal or scalp tenderness. EYES: [place] conjunctivae. Pupils equal round and reactive. Extraocular motions intact. No scleral icterus. No injection or drainage. ENT: Nose without bleeding, or purulent drainage. Moist oral mucosa, no thrush. Throat without erythema, or exudate. Uvula midline. Airway patent. NECK: Trachea midline. No JVD or lymphadenopathy. Supple, nontender, no meningeal signs. CARDIOVASCULAR: Regular rate and rhythm without murmurs, gallops, or rubs. RESPIRATORY: Clear to auscultation. Breath sounds equal bilaterally. No wheezes , rales, or rhonchi. Decreased breath sounds at the bases. GASTROINTESTINAL: Abdomen soft, non-tender, nondistended. No hepato-splenomegaly , or palpable masses. No guarding. MUSCULOSKELETAL: Extremities without clubbing, cyanosis, or edema. No joint effusion, or edema noted. No calf tenderness. NEUROLOGICAL: Awake and alert. Cranial nerves II through XII intact. Motor and sensory grossly within normal limits. Five out of 5 muscle strength in all muscle groups. Normal speech. PSYCH: Calm and cooperative LINE: PIV with no evidence of infection Laboratory Laboratory Tests Test 05/18/16 05:30 Sodium Level 142 Potassium Level 4.0 Chloride Level 108 Carbon Dioxide Level 22.4 Anion Gap 12 Blood Urea Nitrogen 35 Creatinine 1.57 Estimat Glomerular Filtration 32 Rate Random Glucose 99 Calcium Level 9.0 Result Diagram: 05/18/16 0530 Imaging RADIOLOGY STUDIES/FILMS REVIEWED Chest X-Ray 05/18/16 0000 Signed Impressions: Service Date/Time: Wednesday, May 18, 2016 08:57 - CONCLUSION: 1. Minimal bibasilar subsegmental atelectasis. Zander Floyd MD Assessment and Plan Assessment and Plan IMPRESSION One (+) BC out of 2 with Staph hominis, C/W contaminant, no clinical significance - follow-up BC negative Aspiration PNA< clinically and radiographically improving Suicidal attempt with drug overdose Major Depression S/P respiratory failure RECOMMENDATION Stop IV Unasyn Change to po Augmentin and give 4 more days (total 10 day Abx for PNA) No Abx or treatment needed for the Staph hominis in one BC Being treated for major depression Thank you for this consultation I will be available on prn basis Please reconsult if with any new ID issue or question Nohemi Jacobsen MD May 18, 2016 16:24
[2016-05-18 18:53] VITALS: BP 110/75; PULSE 80; RESP 16; TEMP 97.8; O2SAT 93
[2016-05-18 19:25] VITALS: O2SAT 98
[2016-05-18] MEDS: traZODone HCL 100 MG TAB PO SCH (20:54)
[2016-05-18] MEDS: MIRTAZAPINE 15 MG TAB PO SCH (20:55)
[2016-05-18] MEDS: AMOXICILLIN/CLAVULANATE K 500 MG TAB PO SCH (21:00)
[2016-05-19] MEDS: LORazepam 0.5 MG TAB age > 65 yrs PO PRN (03:47)
[2016-05-19 05:41] VITALS: BP 102/56; PULSE 74; RESP 15; TEMP 98.2; O2SAT 90
[2016-05-19 05:53] VITALS: PULSE 77; RESP 16; O2SAT 96
[2016-05-19] MEDS: INSULIN ASPART SUPPLEMENTAL SCALE SQ SCH ×4 (07:00→21:00)
[2016-05-19] MEDS: AMOXICILLIN/CLAVULANATE K 500 MG TAB PO SCH ×3 (07:06→21:13)
[2016-05-19] MEDS: RESP: ALBUTEROL 2.5 MG/IPRATROPIUM 0.5 MG NEB (SCH) NEB ×3 (07:48→22:26)
[2016-05-19 07:50] VITALS: O2SAT 98
[2016-05-19 08:10] LABS: AUTOMATED NEUTROPHIL # 5.3 TH/MM3 (1.8-7.7); BASOPHIL # 0.1 TH/MM3 (0-0.2); BASOPHIL % 0.8 % (0.0-2.0); EOSINOPHIL # 0.4 TH/MM3 (0-0.4); EOSINOPHIL % 5.2 % (0.0-4.0); HEMO FLAGS DIFF FINAL; LYMPH % 12.1 % (9.0-44.0); LYMPHOCYTE # 0.9 TH/MM3 (1.0-4.8); MEAN CELL VOLUME 80.1 FL (80.0-100.0); MEAN CORPUSCULAR HEMOGLOBIN 25.4 PG (27.0-34.0); MEAN CORPUSCULAR HGB CONC 31.7 % (32.0-36.0); MONO % 8.9 % (0.0-8.0); PLATELET COUNT 203 TH/MM3 (150-450); RED BLOOD COUNT 4.25 MIL/MM3 (4.00-5.30); WHITE BLOOD COUNT 7.2 TH/MM3 (4.0-11.0)
[2016-05-19 08:56] LABS: BICARBONATE 25.5 MEQ/L (21.0-32.0); POTASSIUM 4.2 MEQ/L (3.5-5.1)
[2016-05-19] MEDS: PANTOPRAZOLE SOD 40 MG DELAYED RELEASE TAB PO SCH ×2 (09:00→21:13)
[2016-05-19] MEDS: clonazePAM 0.5 MG TAB PO SCH ×2 (09:00→21:13)
[2016-05-19] MEDS: METOPROLOL TARTRATE 50 MG TAB PO SCH ×2 (09:00→21:13)
[2016-05-19] MEDS: POLYETHYLENE GLYCOL 17 GM PKG PO SCH (09:00)
[2016-05-19] MEDS: DOCUSATE SODIUM 100 MG CAP PO SCH ×2 (09:00→21:13)
[2016-05-19] MEDS: guaiFENesin E.R. 600 MG TAB PO SCH ×2 (09:00→21:13)
[2016-05-19] MEDS ORDERED: QUEtiapine FUMARATE 25 MG TAB PO SCH (09:00)
--- NOTE | 2016-05-19 10:13 | HHI.PYPN ---
Subjective Remarks Patient was seen today for evaluation along with socially responsible investment adviser Chelsey and Nurse Fernandez Gunter, patient stated she had a very good night, she finally could sleep and rest. She reports improved mood, denies suicidal or homicidal ideation, denies visual and auditory hallucinations. Patient states she disagrees with her son's plan of discharging her to the [facility] or to another inpatient facility. She says that right now she feels fine, she wants to go back home, she just needs a very good plan for outpatient psychiatric care and outpatient counseling and maybe somebody to manage her medication. She says that she usually functions well until she becomes depressed due to her medical problems and conflictive relationship with sons and is during this depressive episodes when she becomes suicidal and performs suicidal attempts "in those moment I just want to disappear". Patient is fully oriented 3, she is logical, coherent and relevant, fully compliant with medications, no significant side effects reported. Review of Systems Other No somatic complaints Objective Alert: Yes [place]: Person, Place, Date, Situation Mood: Calm Affect: Euthymic Memory Intact: Immediate, Recent, Remote Hallucinations: Other (denies) Delusions: No Delusion Type: Other (none) Suicidal: Ideation (she denies) Homicidal: Ideation (she denies) Insight/Judgement fair Labs Test 05/19/16 07:32 White Blood Count 7.2 TH/MM3 Red Blood Count 4.25 MIL/MM3 Hemoglobin 10.8 GM/DL Hematocrit 34.0 % Mean Corpuscular Volume 80.1 FL Mean Corpuscular Hemoglobin 25.4 PG Mean Corpuscular Hemoglobin 31.7 % Concent Red Cell Distribution Width 16.0 % Platelet Count 203 TH/MM3 Mean Platelet Volume 8.9 FL Neutrophils (%) (Auto) 73.0 % Lymphocytes (%) (Auto) 12.1 % Monocytes (%) (Auto) 8.9 % Eosinophils (%) (Auto) 5.2 % Basophils (%) (Auto) 0.8 % Neutrophils # (Auto) 5.3 TH/MM3 Lymphocytes # (Auto) 0.9 TH/MM3 Monocytes # (Auto) 0.6 TH/MM3 Eosinophils # (Auto) 0.4 TH/MM3 Basophils # (Auto) 0.1 TH/MM3 CBC Comment DIFF FINAL Differential Comment Sodium Level 139 MEQ/L Potassium Level 4.2 MEQ/L Chloride Level 104 MEQ/L Carbon Dioxide Level 25.5 MEQ/L Anion Gap 10 MEQ/L Blood Urea Nitrogen 37 MG/DL Creatinine 1.75 MG/DL Estimat Glomerular Filtration 28 ML/MIN Rate Random Glucose 98 MG/DL Calcium Level 8.9 MG/DL Vitals/IOs Vital Signs Date Time Temp Pulse Resp B/P Pulse Ox O2 Delivery O2 Flow Rate FiO2 05/19/16 07:50 98 Nasal Cannula 2.00 05/19/16 05:53 77 16 05/19/16 05:41 98.2 102/56 Intake and Output 05/18/16 05/18/16 05/19/16 08:00 16:00 00:00 Intake Total 240 ml 600 ml Balance 240 ml 600 ml Assessment & Plan Problem List: (1) Depression Assessment & Plan: Patient continues to show a significant response to psychotropics and psychotherapy. Will increase the Seroquel to 50 mg in the morning and 100 mg at night to help with depression and also with sleep. ICD Code: F32.9 Assessment & Plan Estimated LOS: days Justification for Cont. Inpt. Patient had a reason serious suicidal attempt, at this moment still showing depressive symptoms, she needs to continue psychiatric hospitalization for stabilization. Problem Qualifiers (1) Depression: Dwayne Wong MD May 19, 2016 10:12
[2016-05-19] MEDS ORDERED: POVIDONE IODINE 10% SOLN 480 ML BTL TOPICAL ONE (10:15)
--- NOTE | 2016-05-19 13:49 | HHI.PR ---
Subjective Remarks Follow up on UGIB, DM, HTN and aspiration PNA. Patient seen today. States she feels better. On room air. Denies pain and discomfort. Denies SOB/ dyspnea. Denies chest pain, palpitations, headaches, dizziness. Denies fevers, chills, n/ v/d. Objective Vitals Vital Signs Date Time Temp Pulse Resp B/P Pulse Ox O2 Delivery O2 Flow Rate FiO2 05/19/16 07:50 98 Nasal Cannula 2.00 05/19/16 07:28 98 Room Air 05/19/16 05:53 77 16 96 05/19/16 05:41 98.2 74 15 102/56 90 05/18/16 19:25 98 Nasal Cannula 2.00 05/18/16 19:00 98 Nasal Cannula 2.00 05/18/16 18:53 97.8 80 16 110/75 93 I/O 05/18/16 05/18/16 05/18/16 05/19/16 05/19/16 05/19/16 07:00 15:00 23:00 07:00 15:00 23:00 Intake Total 240 ml 600 ml Balance 240 ml 600 ml Intake Oral 120 ml 600 ml IV Total 120 ml # Voids 1 1 1 Result Diagram: 05/19/16 0732 05/19/16 0732 Imaging Last Impressions Chest X-Ray 05/18/16 0000 Signed Impressions: Service Date/Time: Wednesday, May 18, 2016 08:57 - CONCLUSION: 1. Minimal bibasilar subsegmental atelectasis. Zander Floyd MD Objective Remarks GENERAL: This is a well-nourished, well-developed patient, in no apparent distress- alert and oriented to person and place appears to be a poor historian SKIN: Scattered ecchymosis bilateral upper extremities HEAD: Atraumatic. Normocephalic. No temporal or scalp tenderness. EYES: Extraocular motions intact. No scleral icterus. No injection or drainage. CARDIOVASCULAR: Regular rate and rhythm without murmurs, gallops, or rubs. RESPIRATORY: clear to auscultation bilaterally. GASTROINTESTINAL: Abdomen soft, non-tender, nondistended. MUSCULOSKELETAL: Extremities without clubbing, cyanosis, or edema. No joint tenderness, effusion, or edema noted. No calf tenderness. NEUROLOGICAL: Awake and alert. No focal deficits appreciated. Motor and sensory grossly within normal limits. 4 out of 5 muscle strength in all muscle groups. Normal speech. A/P Problem List: (1) Depression ICD Code: F32.9 Status: Acute (2) Acute kidney injury ICD Code: N17.9 Status: Acute (3) GI bleeding ICD Code: K92.2 Status: Resolved (4) Dyslipidemia ICD Code: E78.5 Status: Chronic (5) Hypertension ICD Code: I10 Status: Chronic (6) Respiratory failure, acute ICD Code: J96.00 Status: Resolved Assessment and Plan This is an 80-year-old female patient with a past medical history which includes severe depression and suicide attempts 7, hypertension, dyslipidemia, GERD, diabetic diet which patient reports is diet controlled. Patient initially presented to the hospital on 05/12/2016 after an attempted suicide attempt with overdose she was found nonresponsive with coffee-ground emesis on her shirt and around her mouth and nose. She was intubated for airway protection by EMS and admitted to ICU. UDS positive only for opiates extubated to 05/14/2016. Currently admitted to inpatient psychiatric center with consulted for assistance with ongoing medical management. Severe depression with attempted suicide management per psychiatric team Upper GI bleed patient's son has refused EGD Continue PPI twice a day Hemoglobin appears stable No signs of bleeding at this time Aspiration pneumonia patient has received vancomycin Zosyn and Unasyn IV discontinue on Unasyn IV. Started on Augmentin Duonebs every 6 hours and when necessary Titrate oxygen to maintain saturation above 92% - wean off to room air. Blood cultures Staph Hominis in one of 2 bottles, no growth 4 days in the other bottle, ID consulted CXR ordered showing minimal bibasilar subsegmental atelectasis lasix 20 mg PO x 1 given yesterday add Mucinex po BID Encourage use of IS at the bedside PT eval/tx No leukocytosis WBC 7.2 on CBC 05/19/16 Diabetes good control with blood sugars running 99 - 116 Accu-Cheks before meals at bedtime was low-dose sliding scale coverage Diabetic diet CKD avoid nephrotoxic agents slight bump in creatinine following Lasix dose - 1.49 -> 1.52 -> 1.57 continue to monitor BMP, am lab ordered Hypertension continue patient's home metoprolol 50 mg every 12 hours good control at present Monitor blood pressure trend Constipation bowel regimen last BM 05/16 MOM dose now Miralax daily to follow continue on po Colace daily DVT prophylaxis early ambulation PT consulted unable to use SCDs as patient is inpatient psychiatric center. May use teds unable to use chemical anticoagulation as patient with recent GI bleed Discussed plan of care with patient, nursing Written by Paris Martinez, acting as scribe for Dr. Zavaleta on 05/19/16 at 13: 58. Attending Statement The documentation accurately reflects the work performed [id number] by me on at 13:58. Problem Qualifiers (1) Depression: Paris Florez May 19, 2016 13:49 Tyrone Garcia MD May 21, 2016 16:28
[2016-05-19 18:39] VITALS: BP 135/59; PULSE 93; RESP 17; TEMP 97.4; O2SAT 94
[2016-05-19] MEDS: MIRTAZAPINE 15 MG TAB PO SCH (21:12)
[2016-05-19] MEDS: QUEtiapine FUMARATE 100 MG TAB PO SCH (21:12)
[2016-05-19] MEDS: traZODone HCL 100 MG TAB PO SCH (21:13)
[2016-05-19 22:27] VITALS: O2SAT 93
[2016-05-20 05:56] VITALS: BP 120/63; PULSE 70; RESP 18; TEMP 97.4; O2SAT 96
[2016-05-20] MEDS: AMOXICILLIN/CLAVULANATE K 500 MG TAB PO SCH ×3 (06:00→22:30)
[2016-05-20] MEDS: INSULIN ASPART SUPPLEMENTAL SCALE SQ SCH ×4 (06:47→21:00)
[2016-05-20] MEDS: RESP: ALBUTEROL 2.5 MG/IPRATROPIUM 0.5 MG NEB (SCH) NEB ×2 (07:43→13:21)
[2016-05-20 07:45] VITALS: O2SAT 85
[2016-05-20] MEDS: POVIDONE IODINE 10% SOLN 480 ML BTL TOPICAL SCH (09:00)
[2016-05-20] MEDS: clonazePAM 0.5 MG TAB PO SCH ×2 (09:00→22:32)
[2016-05-20] MEDS: PANTOPRAZOLE SOD 40 MG DELAYED RELEASE TAB PO SCH ×2 (09:00→22:31)
[2016-05-20] MEDS: METOPROLOL TARTRATE 50 MG TAB PO SCH ×2 (09:00→22:32)
[2016-05-20] MEDS ORDERED: QUEtiapine FUMARATE 25 MG TAB PO SCH (09:00)
[2016-05-20] MEDS: POLYETHYLENE GLYCOL 17 GM PKG PO SCH (09:00)
[2016-05-20] MEDS: DOCUSATE SODIUM 100 MG CAP PO SCH ×2 (09:00→21:00)
[2016-05-20] MEDS: guaiFENesin E.R. 600 MG TAB PO SCH ×2 (09:00→22:32)
--- NOTE | 2016-05-20 09:46 | HHI.PYPN ---
Subjective Remarks Patient seen today for psychiatric reevaluation along with nurse in charge Fernandez and social group worker Chelsey, patient expresses that she has been feeling much better, however is inevitable to feel sad "when you think about all the things I have insight". Patient says that she is upset with the fact that Her two sons keep calling to make decisions about her and to give opinion when they don' t really care about her and they don't call her. When I told her that her son Mars called me just to to suggest that the patient should be discharged to an outpatient psychiatric care in [place] her answer was "but I have to 3 years without seeing Mars, how can he suddenly become concerned about me". But , at the same time she reports a good response to medication, she reports to feel safe and care in the unit, she hasn't had any suicidal thoughts and feels a good energy and motivation about her future. At this moment she denies suicidal or homicidal ideation, she denies visual and auditory hallucinations. She reports good sleep, good appetite, good concentration level, she has been medication compliant, he does report an uncomfortable sedation especially in the morning. Review of Systems Other No somatic complaints Objective Alert: Yes [place]: Person, Place, Date, Situation Mood: Calm Affect: Euthymic Memory Intact: Immediate, Recent, Remote Hallucinations: Other (denies) Delusions: No Delusion Type: Other (none) Suicidal: Ideation (she denies) Homicidal: Ideation (she denies) Insight/Judgement Good Vitals/IOs Vital Signs Date Time Temp Pulse Resp B/P Pulse Ox O2 Delivery O2 Flow Rate FiO2 05/20/16 07:45 85 21 05/20/16 05:56 97.4 70 18 120/63 05/20/16 01:13 Nasal Cannula 2.00 Intake and Output 05/19/16 05/19/16 05/20/16 08:00 16:00 00:00 Intake Total 744 ml 480 ml Balance 744 ml 480 ml Assessment & Plan Problem List: (1) Depression Assessment & Plan: Continue psychiatric hospitalization for stabilization of depressive symptoms. Will discontinue morning times Seroquel to avoid sedation. Patient will sign voluntary admission. Extensive support and motivation provided. ICD Code: F32.9 Assessment & Plan Estimated LOS: days Justification for Cont. Inpt. Patient needs to continue psychiatric hospitalization for stabilization. Problem Qualifiers (1) Depression: Dwayne Wong MD May 20, 2016 09:46
[2016-05-20] MEDS: SODIUM CHLOR 0.9% 1000 ML INJ 1,000 ML IV SCH (16:15)
--- NOTE | 2016-05-20 17:10 | HHI.PR ---
Subjective Remarks Follow up on UGIB, DM, HTN and aspiration PNA. Patient seen today. States she is doing well. Requesting to take off O2 nasal cannula when she is not short of breath. Patient complains of leaking when urinating, states she was on Myrbetriq prior to hospitalization. Denies pain and discomfort. Denies SOB/ dyspnea. Denies chest pain, palpitations, headaches, dizziness. Denies fevers, chills, n/v/d. Objective Vitals Vital Signs Date Time Temp Pulse Resp B/P Pulse Ox O2 Delivery O2 Flow Rate FiO2 05/20/16 07:45 85 21 05/20/16 05:56 97.4 70 18 120/63 96 05/20/16 01:13 Nasal Cannula 2.00 05/19/16 22:27 93 05/19/16 18:39 97.4 93 17 135/59 94 I/O 05/19/16 05/19/16 05/19/16 05/20/16 05/20/16 05/20/16 07:00 15:00 23:00 07:00 15:00 23:00 Intake Total 744 ml 480 ml 240 ml Balance 744 ml 480 ml 240 ml Intake Oral 744 ml 480 ml 240 ml # Voids 1 1 3 Result Diagram: 05/19/16 0732 05/19/16 0732 Imaging Last Impressions Chest X-Ray 05/18/16 0000 Signed Impressions: Service Date/Time: Wednesday, May 18, 2016 08:57 - CONCLUSION: 1. Minimal bibasilar subsegmental atelectasis. Zander Floyd MD Objective Remarks GENERAL: This is a well-nourished, well-developed patient, in no apparent distress- alert and oriented to person and place appears to be a poor historian SKIN: Scattered ecchymosis bilateral upper extremities HEAD: Atraumatic. Normocephalic. No temporal or scalp tenderness. EYES: Extraocular motions intact. No scleral icterus. No injection or drainage. CARDIOVASCULAR: Regular rate and rhythm without murmurs, gallops, or rubs. RESPIRATORY: clear to auscultation bilaterally. GASTROINTESTINAL: Abdomen soft, non-tender, nondistended. MUSCULOSKELETAL: Extremities without clubbing, cyanosis, or edema. No joint tenderness, effusion, or edema noted. No calf tenderness. NEUROLOGICAL: Awake and alert. No focal deficits appreciated. Motor and sensory grossly within normal limits. 4 out of 5 muscle strength in all muscle groups. Normal speech. A/P Problem List: (1) Depression ICD Code: F32.9 Status: Acute (2) Acute kidney injury ICD Code: N17.9 Status: Acute (3) GI bleeding ICD Code: K92.2 Status: Resolved (4) Dyslipidemia ICD Code: E78.5 Status: Chronic (5) Hypertension ICD Code: I10 Status: Chronic (6) Respiratory failure, acute ICD Code: J96.00 Status: Resolved Assessment and Plan This is an 80-year-old female patient with a past medical history which includes severe depression and suicide attempts 7, hypertension, dyslipidemia, GERD, diabetic diet which patient reports is diet controlled. Patient initially presented to the hospital on 05/12/2016 after an attempted suicide attempt with overdose she was found nonresponsive with coffee-ground emesis on her shirt and around her mouth and nose. She was intubated for airway protection by EMS and admitted to ICU. UDS positive only for opiates extubated to 05/14/2016. Currently admitted to inpatient psychiatric center with consulted for assistance with ongoing medical management. Severe depression with attempted suicide management per psychiatric team Upper GI bleed patient's son has refused EGD Continue PPI twice a day Hemoglobin appears stable No signs of bleeding at this time Aspiration pneumonia patient has received vancomycin Zosyn and Unasyn IV discontinue on Unasyn IV. Started on Augmentin Duonebs every 6 hours and when necessary Titrate oxygen to maintain saturation above 92% - wean off to room air. Blood cultures Staph Hominis in one of 2 bottles, no growth 4 days in the other bottle, ID consulted CXR ordered showing minimal bibasilar subsegmental atelectasis lasix 20 mg PO x 1 given yesterday add Mucinex po BID Encourage use of IS at the bedside PT eval/tx No leukocytosis WBC 7.2 on CBC 05/19/16 Diabetes good control with blood sugars running 99 - 116 Accu-Cheks before meals at bedtime was low-dose sliding scale coverage Diabetic diet TUNG, on CKD avoid nephrotoxic agents Elevated creatinine - 1.49 -> 1.52 -> 1.57 --> 1.75 05/19/16 continue to monitor BMP, am lab ordered IVF 84ml/hr x8pbaze Hypertension continue patient's home metoprolol 50 mg every 12 hours good control at present Monitor blood pressure trend Constipation bowel regimen last BM 05/16 MOM dose now Miralax daily to follow continue on po Colace daily Overactive bladder - previously on Myrbetriq. Will hold off use secondary to elevated creatinine. DVT prophylaxis early ambulation PT consulted unable to use SCDs as patient is inpatient psychiatric center. May use teds unable to use chemical anticoagulation as patient with recent GI bleed Discussed plan of care with patient, nursing, Dr. Zavaleta Problem Qualifiers (1) Depression: Paris Florez May 20, 2016 17:10 Tyrone Garcia MD May 21, 2016 16:29
[2016-05-20 20:54] VITALS: BP 146/72; PULSE 85; RESP 17; TEMP 97.6; O2SAT 95
[2016-05-20] MEDS: MIRTAZAPINE 15 MG TAB PO SCH (22:31)
[2016-05-20] MEDS: traZODone HCL 100 MG TAB PO SCH (22:33)
[2016-05-20] MEDS: QUEtiapine FUMARATE 100 MG TAB PO SCH (22:33)
[2016-05-21] MEDS: SODIUM CHLOR 0.9% 1000 ML INJ 1,000 ML IV SCH ×3 (04:10→21:30)
[2016-05-21 05:56] VITALS: BP 117/57; PULSE 67; RESP 15; TEMP 97.4; O2SAT 94
[2016-05-21] MEDS: INSULIN ASPART SUPPLEMENTAL SCALE SQ SCH ×4 (06:36→21:00)
[2016-05-21 07:20] LABS: POTASSIUM 4.3 MEQ/L (3.5-5.1)
[2016-05-21 07:30] LABS: HEMATOCRIT 32.5 % (35.0-46.0); MEAN CELL VOLUME 80.9 FL (80.0-100.0); MEAN CORPUSCULAR HEMOGLOBIN 25.4 PG (27.0-34.0); MEAN CORPUSCULAR HGB CONC 31.4 % (32.0-36.0); PLATELET COUNT 206 TH/MM3 (150-450); RED BLOOD COUNT 4.02 MIL/MM3 (4.00-5.30); RED CELL DISTRIBUTION WIDTH 16.1 % (11.6-17.2); WHITE BLOOD COUNT 6.1 TH/MM3 (4.0-11.0)
[2016-05-21 07:44] LABS: HEMO FLAGS AUTO DIFF
[2016-05-21] MEDS: AMOXICILLIN/CLAVULANATE K 500 MG TAB PO SCH ×3 (08:09→21:21)
[2016-05-21] MEDS: DOCUSATE SODIUM 100 MG CAP PO SCH ×2 (08:10→21:00)
[2016-05-21] MEDS: PANTOPRAZOLE SOD 40 MG DELAYED RELEASE TAB PO SCH ×2 (08:10→21:21)
[2016-05-21] MEDS: METOPROLOL TARTRATE 50 MG TAB PO SCH ×2 (08:10→21:22)
[2016-05-21] MEDS: guaiFENesin E.R. 600 MG TAB PO SCH ×2 (08:10→21:21)
[2016-05-21] MEDS: clonazePAM 0.5 MG TAB PO SCH ×2 (08:12→21:21)
[2016-05-21] MEDS: POLYETHYLENE GLYCOL 17 GM PKG PO SCH (08:13)
[2016-05-21 08:16] VITALS: O2SAT 96
[2016-05-21] MEDS: POVIDONE IODINE 10% SOLN 480 ML BTL TOPICAL SCH (09:00)
[2016-05-21] MEDS: ACETAMINOPHEN 325 MG TAB PO PRN (09:05)
[2016-05-21 11:00] LABS: BANDS 2 % (0-6); BASOPHILS 1 % (0-2); EOSINOPHILS 3 % (0-4); MYELOCYTES 1 % (0-0); NEUTROPHIL # MANUAL DIFF 4.6 TH/MM3 (1.8-7.7); POLYS (SEG NEUTROPHILS) 72 % (16-70); WBC DIFF SAMPLE 100
[2016-05-21 11:01] LABS: PLATELET ESTIMATE SMEAR NORMAL (NORMAL); PLATELET MORPHOLOGY ENLARGED (NORMAL); SCAN/DIFF FINAL DIFF MANUAL
--- NOTE | 2016-05-21 13:54 | HHI.PYPN ---
Subjective Remarks Patient was seen today for psychiatric evaluation, she is states that she was in a good mood and that she spoke by phone with her sister and she told her that she is selfish, since when she has been feeling sad, guilty, irritable. She reports improvement in general, still having difficulties with sleep at night, but she denies suicidal or homicidal ideation, she denies visual and auditory hallucinations. Patient is oriented 3. Compliant with medications, no significant side effects. Review of Systems Other Somatic complaints Objective Alert: Yes [place]: Person, Place, Date, Situation Mood: Calm Affect: Euthymic Memory Intact: Immediate, Recent, Remote Hallucinations: Other (denies) Delusions: No Delusion Type: Other (none) Suicidal: Ideation (she denies) Homicidal: Ideation (she denies) Insight/Judgement Improved Labs Test 05/21/16 06:33 White Blood Count 6.1 TH/MM3 Red Blood Count 4.02 MIL/MM3 Hemoglobin 10.2 GM/DL Hematocrit 32.5 % Mean Corpuscular Volume 80.9 FL Mean Corpuscular Hemoglobin 25.4 PG Mean Corpuscular Hemoglobin 31.4 % Concent Red Cell Distribution Width 16.1 % Platelet Count 206 TH/MM3 Mean Platelet Volume 8.9 FL Neutrophils (%) (Auto) % Lymphocytes (%) (Auto) % Monocytes (%) (Auto) % Eosinophils (%) (Auto) % Basophils (%) (Auto) % Neutrophils # (Auto) TH/MM3 Lymphocytes # (Auto) TH/MM3 Monocytes # (Auto) TH/MM3 Eosinophils # (Auto) TH/MM3 Basophils # (Auto) TH/MM3 CBC Comment AUTO DIFF Differential Total Cells 100 Counted Neutrophils % (Manual) 72 % Band Neutrophils % 2 % Lymphocytes % 18 % Monocytes % 3 % Eosinophils % 3 % Basophils % 1 % Neutrophils # (Manual) 4.6 TH/MM3 Myelocytes 1 % Differential Comment FINAL DIFF MANUAL Platelet Estimate NORMAL Platelet Morphology Comment ENLARGED Sodium Level 143 MEQ/L Potassium Level 4.3 MEQ/L Chloride Level 109 MEQ/L Carbon Dioxide Level 23.0 MEQ/L Anion Gap 11 MEQ/L Blood Urea Nitrogen 32 MG/DL Creatinine 1.58 MG/DL Estimat Glomerular Filtration 31 ML/MIN Rate Random Glucose 97 MG/DL Calcium Level 9.0 MG/DL Vitals/IOs Vital Signs Date Time Temp Pulse Resp B/P Pulse Ox O2 Delivery O2 Flow Rate FiO2 3/2/17 10:02 98 Nasal Cannula 2.00 05/21/16 05:56 97.4 67 15 117/57 05/20/16 07:45 21 Intake and Output 05/20/16 05/20/16 05/21/16 08:00 16:00 00:00 Intake Total 240 ml 720 ml Balance 240 ml 720 ml Assessment & Plan Problem List: (1) Depression Assessment & Plan: Will increase mirtazapine to 45 mg at bedtime to help with mood and also to help with sleep. ICD Code: F32.9 Assessment & Plan Estimated LOS: days Justification for Cont. Inpt. Continue psychiatric stabilization and medication adjustment. We will start working in a safe discharge for this patient. Problem Qualifiers (1) Depression: Dwayne Wong MD May 21, 2016 13:54
--- NOTE | 2016-05-21 16:38 | HHI.PR ---
Subjective Remarks Follow up on UGIB, DM, HTN and aspiration PNA. denies cp/sob denies fevers/chills satin well on 2 liters nasal canula Objective Vitals Vital Signs Date Time Temp Pulse Resp B/P Pulse Ox O2 Delivery O2 Flow Rate FiO2 05/21/16 10:02 98 Nasal Cannula 2.00 05/21/16 08:16 96 Nasal Cannula 2.00 05/21/16 05:56 97.4 67 15 117/57 94 05/20/16 21:30 Room Air 05/20/16 20:54 97.6 85 17 146/72 95 I/O 05/20/16 05/20/16 05/20/16 05/21/16 05/21/16 05/21/16 07:00 15:00 23:00 07:00 15:00 23:00 Intake Total 240 ml 720 ml 240 ml 720 ml Balance 240 ml 720 ml 240 ml 720 ml Intake Oral 240 ml 720 ml 240 ml 720 ml # Voids 3 3 1 Result Diagram: 05/21/16 0633 05/21/16 0633 Imaging Last Impressions Chest X-Ray 05/18/16 0000 Signed Impressions: Service Date/Time: Wednesday, May 18, 2016 08:57 - CONCLUSION: 1. Minimal bibasilar subsegmental atelectasis. Zander Floyd MD Objective Remarks GENERAL: This is a well-nourished, well-developed patient, in no apparent distress- alert and oriented to person and place appears to be a poor historian SKIN: Scattered ecchymosis bilateral upper extremities HEAD: Atraumatic. Normocephalic. No temporal or scalp tenderness. EYES: Extraocular motions intact. No scleral icterus. No injection or drainage. CARDIOVASCULAR: Regular rate and rhythm without murmurs, gallops, or rubs. RESPIRATORY: clear to auscultation bilaterally. GASTROINTESTINAL: Abdomen soft, non-tender, nondistended. MUSCULOSKELETAL: Extremities without clubbing, cyanosis, or edema. No joint tenderness, effusion, or edema noted. No calf tenderness. NEUROLOGICAL: Awake and alert. No focal deficits appreciated. Motor and sensory grossly within normal limits. 4 out of 5 muscle strength in all muscle groups. Normal speech. Procedures none Medications and IVs Current Medications Medications (Trade) Dose Ordered Sig/Lenny Route Start Time Stop Time Status Last Admin (Catapres) 0.1 mg Q6H PRN PO 05/15/16 19:00 (Ativan) 0.5 mg Q12H PRN PO 05/15/16 20:15 05/19/16 03:47 (Ativan Inj) 0.5 mg Q12H PRN IM 05/15/16 20:15 (Tylenol) 650 mg Q4H PRN PO 05/15/16 20:15 05/21/16 09:05 (Mag-Al Plus Susp Liq) 30 ml Q6H PRN PO 05/15/16 20:15 (D50w (Vial) Inj) 25 ml UNSCH PRN IV PUSH 05/16/16 09:00 (Glucagon Inj) 1 mg UNSCH PRN OTHER 05/16/16 09:00 (Colace) 100 mg BID PO 05/16/16 09:00 05/21/16 08:10 (Milk Of Magnesia Liq) 30 ml DAILY PRN PO 05/16/16 09:00 05/18/16 21:01 (Protonix) 40 mg Q12HR PO 05/16/16 09:15 05/21/16 08:10 (Lopressor) 50 mg Q12HR PO 05/16/16 09:15 05/21/16 08:10 (Desyrel) 100 mg HS PO 05/17/16 21:00 05/20/16 22:33 (KlonoPIN) 0.5 mg Q12HR PO 05/17/16 14:00 05/20/16 22:32 (Mucinex Er) 1,200 mg BID PO 05/18/16 12:00 05/21/16 08:10 (Miralax) 17 gm DAILY PO 05/19/16 09:00 05/20/16 09:00 (Augmentin) 500 mg Q8HR PO 05/18/16 22:00 05/22/16 21:59 05/21/16 14:00 (SEROquel) 100 mg HS PO 05/19/16 21:00 05/20/16 22:33 Povidone Iodine 1 applic 1 applic DAILY TOPICAL 05/20/16 09:00 05/30/16 08:59 05/21/16 09:00 (NS 1000 ml Inj) 1,000 ml @ 84 mls/hr [id number] IV 05/20/16 16:15 05/20/16 16:15 (Remeron) 45 mg HS PO 05/21/16 21:00 Urinary Catheter: No Vascular Central Line Catheter: No A/P Problem List: (1) Depression ICD Code: F32.9 Status: Acute (2) Acute kidney injury ICD Code: N17.9 Status: Acute (3) GI bleeding ICD Code: K92.2 Status: Resolved (4) Dyslipidemia ICD Code: E78.5 Status: Chronic (5) Hypertension ICD Code: I10 Status: Chronic (6) Respiratory failure, acute ICD Code: J96.00 Status: Resolved Assessment and Plan This is an 80-year-old female patient with a past medical history which includes severe depression and suicide attempts 7, hypertension, dyslipidemia, GERD, diabetic diet which patient reports is diet controlled. Patient initially presented to the hospital on 05/12/2016 after an attempted suicide attempt with overdose she was found nonresponsive with coffee-ground emesis on her shirt and around her mouth and nose. She was intubated for airway protection by EMS and admitted to ICU. UDS positive only for opiates extubated to 05/14/2016. Currently admitted to inpatient psychiatric center with consulted for assistance with ongoing medical management. Severe depression with attempted suicide management per psychiatric team Upper GI bleed patient's son has refused EGD Continue PPI twice a day Hemoglobin appears stable No signs of bleeding at this time Aspiration pneumonia patient has received vancomycin Zosyn and Unasyn IV ID consulted - IV Unasyn discontinued and the Augmentin started to be discontinued on 05/22/16 - total 10 days ABX for PNA Duonebs every 6 hours and when necessary Titrate oxygen to maintain saturation above 92% - wean off to room air. Blood cultures Staph Hominis in one of 2 bottles, no growth 4 days in the other bottle, ID consulted - No treatment recommended for Staph Hominis. CXR ordered showing minimal bibasilar subsegmental atelectasis lasix 20 mg PO x 1 given yesterday add Mucinex po BID Encourage use of IS at the bedside PT eval/tx No leukocytosis WBC 7.2 on CBC 05/19/16 Diabetes good control with blood sugars running 99 - 116 Accu-Cheks before meals at bedtime was low-dose sliding scale coverage Diabetic diet TUNG, on CKD avoid nephrotoxic agents Elevated creatinine - 1.49 -> 1.52 -> 1.57 --> 1.75 05/19/16 continue to monitor BMP, am lab ordered IVF 84ml/hr [id number] 05/21 Creatinine trending down after IVF administration - encourage po intake. Hypertension continue patient's home metoprolol 50 mg every 12 hours good control at present Monitor blood pressure trend Constipation bowel regimen last BM 05/16 MOM dose now Miralax daily to follow continue on po Colace daily Overactive bladder - previously on Myrbetriq. Will hold off use secondary to elevated creatinine. DVT prophylaxis early ambulation PT consulted unable to use SCDs as patient is inpatient psychiatric center. May use teds unable to use chemical anticoagulation as patient with recent GI bleed Discharge Planning as per primary team Problem Qualifiers (1) Depression: Tyrone Garcia MD May 21, 2016 16:38
[2016-05-21 19:45] VITALS: BP 144/79; PULSE 78; RESP 16; TEMP 97.7; O2SAT 95
[2016-05-21] MEDS: MIRTAZAPINE 15 MG TAB PO SCH (21:21)
[2016-05-21] MEDS: QUEtiapine FUMARATE 100 MG TAB PO SCH (21:21)
[2016-05-21] MEDS: traZODone HCL 100 MG TAB PO SCH (21:22)
[2016-05-21 22:18] VITALS: O2SAT 95
[2016-05-22 05:47] VITALS: BP 118/53; PULSE 65; RESP 15; TEMP 97.4; O2SAT 93
[2016-05-22] MEDS: ACETAMINOPHEN 325 MG TAB PO PRN ×2 (05:59→16:48)
[2016-05-22] MEDS: INSULIN ASPART SUPPLEMENTAL SCALE SQ SCH ×4 (06:00→21:00)
[2016-05-22] MEDS: METOPROLOL TARTRATE 50 MG TAB PO SCH ×2 (08:25→21:29)
[2016-05-22] MEDS: clonazePAM 0.5 MG TAB PO SCH ×3 (08:26→21:29)
[2016-05-22] MEDS: AMOXICILLIN/CLAVULANATE K 500 MG TAB PO SCH ×2 (08:26→16:48)
[2016-05-22] MEDS: guaiFENesin E.R. 600 MG TAB PO SCH ×2 (08:26→21:29)
[2016-05-22] MEDS: DOCUSATE SODIUM 100 MG CAP PO SCH ×3 (08:26→21:29)
[2016-05-22] MEDS: PANTOPRAZOLE SOD 40 MG DELAYED RELEASE TAB PO SCH ×2 (08:27→21:29)
[2016-05-22] MEDS: POLYETHYLENE GLYCOL 17 GM PKG PO SCH (08:27)
[2016-05-22] MEDS: POVIDONE IODINE 10% SOLN 480 ML BTL TOPICAL SCH (08:46)
--- NOTE | 2016-05-22 09:03 | HHI.PYPN ---
Subjective Remarks Today and psychiatric evaluation patient seems to be irritable, guarded, she says that her sister and her son Timmy have not been very nice with her by phone , she says that she is getting better, she reports good response to current psychotropic regimen, better sleep, she denies suicidal and homicidal ideation, she denies visual and auditory hallucinations, but reports struggling hard with that frequent confrontation with her family, she states "there are understand me , they're to figure out that I am an old person with depression and other medical problems..." On the psychiatric rosas patient has been calm, cooperative , no aggressive behavior or agitation observed or reported, fully compliant with her medications. Review of Systems Other No somatic complaints Objective Alert: Yes [place]: Person, Place, Date, Situation Mood: Angry Affect: Euthymic Memory Intact: Immediate, Recent, Remote Hallucinations: Other (denies) Delusions: No Delusion Type: Other (none) Suicidal: Ideation (she denies) Homicidal: Ideation (she denies) Insight/Judgement fair Vitals/IOs Vital Signs Date Time Temp Pulse Resp B/P Pulse Ox O2 Delivery O2 Flow Rate FiO2 05/22/16 05:47 97.4 65 15 118/53 93 05/21/16 22:18 Nasal Cannula 2.00 05/20/16 07:45 21 Intake and Output 05/21/16 05/21/16 05/22/16 08:00 16:00 00:00 Intake Total 240 ml 720 ml 1320 ml Balance 240 ml 720 ml 1320 ml Assessment & Plan Problem List: (1) Depression Assessment & Plan: SW intervention to set up a family meeting to start working in a safe discharge plan, continue current psychotropic regimen. ICD Code: F32.9 Assessment & Plan Estimated LOS: days Justification for Cont. Inpt. Patient is still showing depressive symptoms, she is fragile, vulnerable, with increased risk of suicidality and poor protective factors. She has a high risk to decompensate out of the psychiatric unit Problem Qualifiers (1) Depression: Dwayne Wong MD May 22, 2016 09:03
[2016-05-22] MEDS ORDERED: LOPERAMIDE HCL 2 MG CAP PO ONE (12:00)
[2016-05-22] MEDS: SODIUM CHLOR 0.9% 1000 ML INJ 1,000 ML IV SCH (15:55)
[2016-05-22] MEDS: LOPERAMIDE HCL 2 MG CAP PO PRN (19:00)
[2016-05-22 20:03] VITALS: BP 119/56; PULSE 71; RESP 15; O2SAT 99
[2016-05-22] MEDS: traZODone HCL 100 MG TAB PO SCH (21:29)
[2016-05-22] MEDS: QUEtiapine FUMARATE 100 MG TAB PO SCH (21:29)
[2016-05-22] MEDS: MIRTAZAPINE 15 MG TAB PO SCH (21:29)
[2016-05-22 22:00] VITALS: O2SAT 95
[2016-05-23 05:55] VITALS: BP 119/56; PULSE 72; RESP 18; TEMP 97.6; O2SAT 96
[2016-05-23] MEDS: INSULIN ASPART SUPPLEMENTAL SCALE SQ SCH ×4 (06:18→21:00)
[2016-05-23] MEDS: METOPROLOL TARTRATE 50 MG TAB PO SCH ×2 (08:48→21:11)
[2016-05-23] MEDS: DOCUSATE SODIUM 100 MG CAP PO SCH ×2 (08:49→21:10)
[2016-05-23] MEDS: clonazePAM 0.5 MG TAB PO SCH ×2 (08:49→21:07)
[2016-05-23] MEDS: PANTOPRAZOLE SOD 40 MG DELAYED RELEASE TAB PO SCH ×2 (08:49→21:11)
[2016-05-23] MEDS: POLYETHYLENE GLYCOL 17 GM PKG PO SCH (08:49)
[2016-05-23] MEDS: guaiFENesin E.R. 600 MG TAB PO SCH ×2 (08:49→21:00)
[2016-05-23] MEDS: POVIDONE IODINE 10% SOLN 480 ML BTL TOPICAL SCH (09:00)
--- NOTE | 2016-05-23 13:51 | HHI.PR ---
Subjective Remarks Follow up on UGIB, DM, HTN and aspiration PNA, Left heel blister. Patient seen today. States she is doing well. Off oxygen. States she is not short of breath. Concern about left heel blister when she goes to another psychiatric hospital in [place]. Denies pain and discomfort. Denies SOB/ dyspnea. Denies chest pain, palpitations, headaches, dizziness. Denies fevers, chills, n/ v/d. Objective Vitals Vital Signs Date Time Temp Pulse Resp B/P Pulse Ox O2 Delivery O2 Flow Rate FiO2 05/23/16 10:58 Nasal Cannula 2.00 05/23/16 05:55 97.6 72 18 119/56 96 05/23/16 00:44 95 Nasal Cannula 2.00 05/22/16 22:00 95 Nasal Cannula 05/22/16 20:03 71 15 119/56 99 I/O 05/22/16 05/22/16 05/22/16 05/23/16 05/23/16 05/23/16 07:00 15:00 23:00 07:00 15:00 23:00 Intake Total 120 ml 1440 ml 240 ml 1080 ml 600 ml Output Total 1300 ml Balance 120 ml 1440 ml 240 ml -220 ml 600 ml Intake Oral 120 ml 1440 ml 240 ml 1080 ml 600 ml Output Urine Total 1300 ml # Voids 2 1 3 # Bowel Movements 1 1 Result Diagram: 05/21/16 0633 05/21/16 0633 Imaging Last Impressions Chest X-Ray 05/18/16 0000 Signed Impressions: Service Date/Time: Wednesday, May 18, 2016 08:57 - CONCLUSION: 1. Minimal bibasilar subsegmental atelectasis. Zander Floyd MD Objective Remarks GENERAL: This is a well-nourished, well-developed patient, in no apparent distress- alert and oriented to person and place appears to be a poor historian SKIN: Scattered ecchymosis bilateral upper extremities. Left heel blister present. HEAD: Atraumatic. Normocephalic. No temporal or scalp tenderness. EYES: Extraocular motions intact. No scleral icterus. No injection or drainage. CARDIOVASCULAR: Regular rate and rhythm without murmurs, gallops, or rubs. RESPIRATORY: clear to auscultation bilaterally. GASTROINTESTINAL: Abdomen soft, non-tender, nondistended. MUSCULOSKELETAL: Extremities without clubbing, cyanosis, or edema. No joint tenderness, effusion, or edema noted. No calf tenderness. NEUROLOGICAL: Awake and alert. No focal deficits appreciated. Motor and sensory grossly within normal limits. Normal speech. Procedures none A/P Problem List: (1) Depression ICD Code: F32.9 Status: Acute (2) Acute kidney injury ICD Code: N17.9 Status: Acute (3) GI bleeding ICD Code: K92.2 Status: Resolved (4) Dyslipidemia ICD Code: E78.5 Status: Chronic (5) Hypertension ICD Code: I10 Status: Chronic (6) Respiratory failure, acute ICD Code: J96.00 Status: Resolved Assessment and Plan This is an 80-year-old female patient with a past medical history which includes severe depression and suicide attempts 7, hypertension, dyslipidemia, GERD, diabetic diet which patient reports is diet controlled. Patient initially presented to the hospital on 05/12/2016 after an attempted suicide attempt with overdose she was found nonresponsive with coffee-ground emesis on her shirt and around her mouth and nose. She was intubated for airway protection by EMS and admitted to ICU. UDS positive only for opiates extubated to 05/14/2016. Currently admitted to inpatient psychiatric center with consulted for assistance with ongoing medical management. Severe depression with attempted suicide management per psychiatric team Upper GI bleed patient's son has refused EGD Continue PPI twice a day Hemoglobin appears stable No signs of bleeding at this time Aspiration pneumonia patient has received vancomycin Zosyn and Unasyn IV discontinue on Unasyn IV. Started on Augmentin Blood cultures Staph Hominis in one of 2 bottles, no growth 4 days in the other bottle, ID consulted CXR ordered showing minimal bibasilar subsegmental atelectasis lasix 20 mg PO x 1 given Mucinex po BID Encourage use of IS at the bedside PT eval/tx No leukocytosis WBC 7.2 on CBC 05/19/16 Duonebs every 6 hours and when necessary Titrate oxygen to maintain saturation above 92% - wean off to room air. On room air on exam Diabetes good control with blood sugars running 99 - 116 Accu-Cheks before meals at bedtime was low-dose sliding scale coverage Diabetic diet TUNG, on CKD avoid nephrotoxic agents Elevated creatinine - 1.49 -> 1.52 -> 1.57 --> 1.75 --> 1.58 05/21/16 Back to baseline 1.4-1.5 creatinine Hypertension - controlled continue patient's home metoprolol 50 mg every 12 hours Monitor blood pressure trend Constipation bowel regimen last BM 05/16 MOM dose now Miralax daily to follow continue on po Colace daily Overactive bladder - previously on Myrbetriq. Will hold off use secondary to elevated creatinine. Discussed with patient and agrees. DVT prophylaxis early ambulation PT consulted unable to use SCDs as patient is inpatient psychiatric center. May use teds unable to use chemical anticoagulation as patient with recent GI bleed Discussed plan of care with patient, nursing, Dr. Sanders. Problem Qualifiers (1) Depression: Paris Florez May 23, 2016 13:51 Kathie Sanders DO May 24, 2016 00:55
--- NOTE | 2016-05-23 16:30 | HHI.PYPN ---
Subjective Remarks Patient seen in her room with nurse Erna, patient, pleasant with me, compliant medications, excited about the possibility of going with her son to [place] for placement for now continue treatment Review of Systems Except as stated in HPI: all other systems reviewed are Neg Objective Alert: Yes [place]: Person, Place, Date, Situation Mood: Angry Affect: Euthymic Memory Intact: Immediate, Recent, Remote Hallucinations: Other (denies) Delusions: No Delusion Type: Other (none) Suicidal: Ideation (she denies) Homicidal: Ideation (she denies) Insight/Judgement Poor Vitals/IOs Vital Signs Date Time Temp Pulse Resp B/P Pulse Ox O2 Delivery O2 Flow Rate FiO2 05/23/16 10:58 Nasal Cannula 2.00 05/23/16 05:55 97.6 72 18 119/56 96 05/20/16 07:45 21 Intake and Output 05/22/16 05/22/16 05/23/16 08:00 16:00 00:00 Intake Total 120 ml 1440 ml 240 ml Balance 120 ml 1440 ml 240 ml Assessment & Plan Problem List: (1) Depression ICD Code: F32.9 Assessment & Plan Estimated LOS: days patient mood appears to be improving, denies suicidality at this time for now continue treatment Justification for Cont. Inpt. At this time patient will decompensate if placed a lower level of care Discharge Planning To be determined Problem Qualifiers (1) Depression: Finn Ferrell MD May 23, 2016 16:30
[2016-05-23 18:30] VITALS: BP 116/57; PULSE 75; RESP 18; TEMP 98.2; O2SAT 95
[2016-05-23 21:00] VITALS: O2SAT 95
[2016-05-23] MEDS: ACETAMINOPHEN 325 MG TAB PO PRN (21:08)
[2016-05-23] MEDS: MIRTAZAPINE 15 MG TAB PO SCH (21:10)
[2016-05-23] MEDS: traZODone HCL 100 MG TAB PO SCH (21:11)
[2016-05-23] MEDS: QUEtiapine FUMARATE 100 MG TAB PO SCH (21:11)
[2016-05-24 06:12] VITALS: BP 109/58; PULSE 73; RESP 14; TEMP 97.9; O2SAT 94
[2016-05-24] MEDS: INSULIN ASPART SUPPLEMENTAL SCALE SQ SCH ×4 (06:48→20:33)
--- NOTE | 2016-05-24 08:56 | HHI.PYPN ---
Subjective Remarks Patient seen in her room with nurse Alisha, patient in bed calm quiet though continues depressed with some hopelessness and helplessness stating she is for depression all her life and she is tired of it. Though she denies any specific suicidal plan or intent. Patient compliant medications. For now continue treatment Review of Systems Except as stated in HPI: all other systems reviewed are Neg Objective Alert: Yes [place]: Person, Place, Date, Situation Mood: Angry Affect: Euthymic Memory Intact: Immediate, Recent, Remote Hallucinations: Other (denies) Delusions: No Delusion Type: Other (none) Suicidal: Ideation (she denies) Homicidal: Ideation (she denies) Insight/Judgement Poor Vitals/IOs Vital Signs Date Time Temp Pulse Resp B/P Pulse Ox O2 Delivery O2 Flow Rate FiO2 05/24/16 06:12 97.9 73 14 109/58 94 05/23/16 21:00 Nasal Cannula 2.00 05/20/16 07:45 21 Intake and Output 05/23/16 05/23/16 05/24/16 08:00 16:00 00:00 Intake Total 1080 ml 1200 ml 720 ml Output Total 1300 ml Balance -220 ml 1200 ml 720 ml Assessment & Plan Problem List: (1) Major depressive disorder, recurrent, severe with psychotic features ICD Code: F33.3 Assessment & Plan Estimated LOS: days patient continues depressed and hopeless, though overall compliant medications there is a subtle resistance to interventions. For now continue treatment Justification for Cont. Inpt. At this time patient will decompensate if placed in the lower level of care Discharge Planning To be determined Finn Ferrell MD May 24, 2016 08:56
[2016-05-24] MEDS: POVIDONE IODINE 10% SOLN 480 ML BTL TOPICAL SCH (09:00)
[2016-05-24] MEDS: METOPROLOL TARTRATE 50 MG TAB PO SCH ×2 (09:01→20:31)
[2016-05-24] MEDS: guaiFENesin E.R. 600 MG TAB PO SCH ×2 (09:01→20:32)
[2016-05-24] MEDS: clonazePAM 0.5 MG TAB PO SCH ×2 (09:01→20:31)
[2016-05-24] MEDS: PANTOPRAZOLE SOD 40 MG DELAYED RELEASE TAB PO SCH ×2 (09:02→20:29)
[2016-05-24] MEDS: LOPERAMIDE HCL 2 MG CAP PO PRN (09:02)
[2016-05-24] MEDS: DOCUSATE SODIUM 100 MG CAP PO SCH ×2 (09:02→20:30)
[2016-05-24] MEDS: ACETAMINOPHEN 325 MG TAB PO PRN ×2 (09:02→14:30)
[2016-05-24] MEDS: POLYETHYLENE GLYCOL 17 GM PKG PO SCH (09:02)
[2016-05-24 11:31] VITALS: BP 150/73; PULSE 63; RESP 15; TEMP 98.1; O2SAT 96
--- NOTE | 2016-05-24 13:31 | HHI.PR ---
Subjective Remarks Follow up on UGIB, DM, HTN and aspiration PNA, Left heel blister. Patient seen today. States she is doing well. On RA. Left heel blister persists. Denies pain and discomfort. Denies SOB/ dyspnea. Denies chest pain, palpitations, headaches, dizziness. Denies fevers, chills, n/v/d. Objective Vitals Vital Signs Date Time Temp Pulse Resp B/P Pulse Ox O2 Delivery O2 Flow Rate FiO2 05/24/16 11:31 98.1 63 15 150/73 96 05/24/16 08:00 Room Air 05/24/16 06:12 97.9 73 14 109/58 94 05/23/16 21:00 95 Nasal Cannula 2.00 05/23/16 19:15 Nasal Cannula 05/23/16 18:30 98.2 75 18 116/57 95 I/O 05/23/16 05/23/16 05/23/16 05/24/16 05/24/16 05/24/16 07:00 15:00 23:00 07:00 15:00 23:00 Intake Total 1080 ml 1200 ml 720 ml 360 ml Output Total 1300 ml 750 ml Balance -220 ml 1200 ml 720 ml -390 ml Intake Oral 1080 ml 1200 ml 720 ml 360 ml Output Urine Total 1300 ml 750 ml # Voids 3 3 2 # Bowel Movements 1 1 1 0 Result Diagram: 05/21/16 0633 05/21/16 0633 Imaging Last Impressions Chest X-Ray 05/18/16 0000 Signed Impressions: Service Date/Time: Wednesday, May 18, 2016 08:57 - CONCLUSION: 1. Minimal bibasilar subsegmental atelectasis. Zander Floyd MD Objective Remarks GENERAL: This is a well-nourished, well-developed patient, in no apparent distress- alert and oriented to person and place appears to be a poor historian SKIN: Scattered ecchymosis bilateral upper extremities. Left heel blister present. HEAD: Atraumatic. Normocephalic. No temporal or scalp tenderness. EYES: Extraocular motions intact. No scleral icterus. No injection or drainage. CARDIOVASCULAR: Regular rate and rhythm without murmurs, gallops, or rubs. RESPIRATORY: clear to auscultation bilaterally. GASTROINTESTINAL: Abdomen soft, non-tender, nondistended. MUSCULOSKELETAL: Extremities without clubbing, cyanosis, or edema. No joint tenderness, effusion, or edema noted. No calf tenderness. NEUROLOGICAL: Awake and alert. No focal deficits appreciated. Motor and sensory grossly within normal limits. Normal speech. Procedures none A/P Problem List: (1) Depression ICD Code: F32.9 Status: Acute (2) Acute kidney injury ICD Code: N17.9 Status: Acute (3) GI bleeding ICD Code: K92.2 Status: Resolved (4) Dyslipidemia ICD Code: E78.5 Status: Chronic (5) Hypertension ICD Code: I10 Status: Chronic (6) Respiratory failure, acute ICD Code: J96.00 Status: Resolved Assessment and Plan This is an 80-year-old female patient with a past medical history which includes severe depression and suicide attempts 7, hypertension, dyslipidemia, GERD, diabetic diet which patient reports is diet controlled. Patient initially presented to the hospital on 05/12/2016 after an attempted suicide attempt with overdose she was found nonresponsive with coffee-ground emesis on her shirt and around her mouth and nose. She was intubated for airway protection by EMS and admitted to ICU. UDS positive only for opiates extubated to 05/14/2016. Currently admitted to inpatient psychiatric center with consulted for assistance with ongoing medical management. Severe depression with attempted suicide management per psychiatric team Upper GI bleed patient's son has refused EGD Continue PPI twice a day Hemoglobin appears stable No signs of bleeding at this time Aspiration pneumonia patient has received vancomycin Zosyn and Unasyn IV discontinue on Unasyn IV. Started on Augmentin Blood cultures Staph Hominis in one of 2 bottles, no growth 4 days in the other bottle, ID consulted CXR ordered showing minimal bibasilar subsegmental atelectasis lasix 20 mg PO x 1 given Mucinex po BID Encourage use of IS at the bedside PT eval/tx No leukocytosis WBC 7.2 on CBC 05/19/16 Duonebs every 6 hours and when necessary Titrate oxygen to maintain saturation above 92% - wean off to room air. On room air on exam Diabetes good control with blood sugars running 99 - 116 Accu-Cheks before meals at bedtime was low-dose sliding scale coverage Diabetic diet TUNG, on CKD avoid nephrotoxic agents Elevated creatinine - 1.49 -> 1.52 -> 1.57 --> 1.75 --> 1.58 05/21/16 Back to baseline 1.4-1.5 creatinine Hypertension - controlled continue patient's home metoprolol 50 mg every 12 hours Monitor blood pressure trend Constipation bowel regimen last BM 05/16 MOM dose now Miralax daily to follow continue on po Colace daily Overactive bladder - previously on Myrbetriq. Will hold off use secondary to elevated creatinine. Discussed with patient and agrees. Left heel blister - drained. Iodine swab daily. Off load pressure. Cover with dsg DVT prophylaxis early ambulation PT consulted unable to use SCDs as patient is inpatient psychiatric center. May use teds unable to use chemical anticoagulation as patient with recent GI bleed Discussed plan of care with patient, nursing Written by Paris Martinez, acting as scribe for Dr. Abel at 10:20 The documentation accurately reflects the work performed [id number] by me Dr. Abel at 10:20 Problem Qualifiers (1) Depression: Paris Florez May 24, 2016 13:31 Cheyenne Abel MD May 24, 2016 14:54
[2016-05-24 17:53] VITALS: BP 146/65; PULSE 71; RESP 16; TEMP 97.7
[2016-05-24] MEDS: MIRTAZAPINE 15 MG TAB PO SCH (20:30)
[2016-05-24] MEDS: QUEtiapine FUMARATE 100 MG TAB PO SCH (20:30)
[2016-05-24] MEDS: traZODone HCL 100 MG TAB PO SCH (20:31)
[2016-05-24 20:34] VITALS: O2SAT 96
[2016-05-25 05:55] VITALS: BP 116/58; PULSE 78; RESP 15; TEMP 98.3; O2SAT 91
[2016-05-25] MEDS: INSULIN ASPART SUPPLEMENTAL SCALE SQ SCH ×4 (05:55→20:33)
[2016-05-25] MEDS: ACETAMINOPHEN 325 MG TAB PO PRN (05:55)
[2016-05-25 07:31] VITALS: O2SAT 93
[2016-05-25] MEDS: PANTOPRAZOLE SOD 40 MG DELAYED RELEASE TAB PO SCH ×2 (08:27→21:08)
[2016-05-25] MEDS: DOCUSATE SODIUM 100 MG CAP PO SCH ×2 (08:27→21:00)
[2016-05-25] MEDS: guaiFENesin E.R. 600 MG TAB PO SCH ×2 (08:28→21:00)
[2016-05-25] MEDS: METOPROLOL TARTRATE 50 MG TAB PO SCH ×2 (08:29→21:08)
[2016-05-25] MEDS: clonazePAM 0.5 MG TAB PO SCH ×2 (08:31→21:09)
[2016-05-25] MEDS: POLYETHYLENE GLYCOL 17 GM PKG PO SCH (08:32)
[2016-05-25] MEDS: POVIDONE IODINE 10% SOLN 480 ML BTL TOPICAL SCH (09:00)
--- NOTE | 2016-05-25 10:29 | HHI.PYPN ---
Subjective Remarks Patient was seen for psychiatric reevaluation today, her case was discussed in treatment team, she was seen along with foster care social worker,Chelsey, Nurse Bonny and therapist Asim, patient states that she feels better, she endorses improved sleep, mood is"okay", she also reports good response to psychotropics, no significant side effects, reports good motivation to be discharged alone with her son Timmy. She denies suicidal and homicidal ideation at this moment, she denies visual and auditory hallucinations. She is fully oriented 3, no gross cognitive impairment observed. Review of Systems Other No somatic complaint Objective Alert: Yes [place]: Person, Place, Date, Situation Mood: Calm Affect: Euthymic Memory Intact: Immediate, Recent, Remote Hallucinations: Other (denies) Delusions: No Delusion Type: Other (none) Suicidal: Ideation (she denies) Homicidal: Ideation (she denies) Insight/Judgement fair Vitals/IOs Vital Signs Date Time Temp Pulse Resp B/P Pulse Ox O2 Delivery O2 Flow Rate FiO2 05/25/16 07:31 93 21 05/25/16 05:55 98.3 78 15 116/58 05/24/16 23:57 Room Air 05/23/16 21:00 2.00 Intake and Output 05/24/16 05/24/16 05/25/16 08:00 16:00 00:00 Intake Total 360 ml 360 ml 1060 ml Output Total 750 ml Balance -390 ml 360 ml 1060 ml Assessment & Plan Problem List: (1) Major depressive disorder, recurrent, severe with psychotic features ICD Code: F33.3 Assessment & Plan Estimated LOS: days Justification for Cont. Inpt. Patient has showed good response to psychotropics, she could probably be discharged tomorrow with her son. Dwayne Wong MD May 25, 2016 10:29
[2016-05-25] MEDS ORDERED: TUBERCULIN, PPD 5 UNITS/0.1 ML SYRINGE ID ONE (12:00)
--- NOTE | 2016-05-25 16:16 | HHI.PR ---
Subjective Remarks Follow up on UGIB, DM, HTN and aspiration PNA, Left heel blister. Patient seen today. States she is doing well. On RA. Left heel blister improving. Denies pain and discomfort. Denies SOB/ dyspnea. Denies chest pain, palpitations, headaches, dizziness. Denies fevers, chills, n/v/d. Objective Vitals Vital Signs Date Time Temp Pulse Resp B/P Pulse Ox O2 Delivery O2 Flow Rate FiO2 05/25/16 07:31 93 21 05/25/16 05:55 98.3 78 15 116/58 91 05/24/16 23:57 94 Room Air 05/24/16 20:34 96 21 05/24/16 17:53 97.7 71 16 146/65 I/O 05/24/16 05/24/16 05/24/16 05/25/16 05/25/16 05/25/16 07:00 15:00 23:00 07:00 15:00 23:00 Intake Total 360 ml 360 ml 1060 ml 240 ml 840 ml Output Total 750 ml Balance -390 ml 360 ml 1060 ml 240 ml 840 ml Intake Oral 360 ml 360 ml 1060 ml 240 ml 840 ml Output Urine Total 750 ml # Voids 4 1 # Bowel Movements 0 Result Diagram: 05/21/16 0633 05/21/16 0633 Imaging Last Impressions Chest X-Ray 05/18/16 0000 Signed Impressions: Service Date/Time: Wednesday, May 18, 2016 08:57 - CONCLUSION: 1. Minimal bibasilar subsegmental atelectasis. Zander Floyd MD Objective Remarks GENERAL: This is a well-nourished, well-developed patient, in no apparent distress- alert and oriented to person and place appears to be a poor historian SKIN: Scattered ecchymosis bilateral upper extremities. Left heel blister improving. HEAD: Atraumatic. Normocephalic. No temporal or scalp tenderness. EYES: Extraocular motions intact. No scleral icterus. No injection or drainage. CARDIOVASCULAR: Regular rate and rhythm without murmurs, gallops, or rubs. RESPIRATORY: clear to auscultation bilaterally. GASTROINTESTINAL: Abdomen soft, non-tender, nondistended. MUSCULOSKELETAL: Extremities without clubbing, cyanosis, or edema. No joint tenderness, effusion, or edema noted. No calf tenderness. NEUROLOGICAL: Awake and alert. No focal deficits appreciated. Motor and sensory grossly within normal limits. Normal speech. Procedures none A/P Problem List: (1) Depression ICD Code: F32.9 Status: Acute (2) Acute kidney injury ICD Code: N17.9 Status: Acute (3) GI bleeding ICD Code: K92.2 Status: Resolved (4) Dyslipidemia ICD Code: E78.5 Status: Chronic (5) Hypertension ICD Code: I10 Status: Chronic (6) Respiratory failure, acute ICD Code: J96.00 Status: Resolved Assessment and Plan This is an 80-year-old female patient with a past medical history which includes severe depression and suicide attempts 7, hypertension, dyslipidemia, GERD, diabetic diet which patient reports is diet controlled. Patient initially presented to the hospital on 05/12/2016 after an attempted suicide attempt with overdose she was found nonresponsive with coffee-ground emesis on her shirt and around her mouth and nose. She was intubated for airway protection by EMS and admitted to ICU. UDS positive only for opiates extubated to 05/14/2016. Currently admitted to inpatient psychiatric center with consulted for assistance with ongoing medical management. Severe depression with attempted suicide management per psychiatric team Upper GI bleed patient's son has refused EGD Continue PPI twice a day Hemoglobin appears stable No signs of bleeding at this time Aspiration pneumonia patient has received vancomycin Zosyn and Unasyn IV discontinue on Unasyn IV. Started on Augmentin Blood cultures Staph Hominis in one of 2 bottles, no growth 4 days in the other bottle, ID consulted CXR ordered showing minimal bibasilar subsegmental atelectasis lasix 20 mg PO x 1 given Mucinex po BID Encourage use of IS at the bedside PT eval/tx No leukocytosis WBC 7.2 on CBC 05/19/16 Duonebs every 6 hours and when necessary Titrate oxygen to maintain saturation above 92% - wean off to room air. On room air on exam Diabetes good control with blood sugars running 99 - 116 Accu-Cheks before meals at bedtime was low-dose sliding scale coverage Diabetic diet TUNG, on CKD avoid nephrotoxic agents Elevated creatinine - 1.49 -> 1.52 -> 1.57 --> 1.75 --> 1.58 05/21/16 Back to baseline 1.4-1.5 creatinine Hypertension - controlled continue patient's home metoprolol 50 mg every 12 hours Monitor blood pressure trend Constipation bowel regimen last BM 05/16 MOM dose now Miralax daily to follow continue on po Colace daily Overactive bladder - previously on Myrbetriq. Will hold off use secondary to elevated creatinine. Discussed with patient and agrees. Left heel blister - drained. Iodine swab daily. Off load pressure. Cover with dsg -Improving. DVT prophylaxis early ambulation PT consulted unable to use SCDs as patient is inpatient psychiatric center. May use teds unable to use chemical anticoagulation as patient with recent GI bleed Discussed plan of care with patient, nursing, and Dr. Sanders Problem Qualifiers (1) Depression: Paris Florez May 25, 2016 16:16 Kathie Sanders DO May 25, 2016 23:55
[2016-05-25 17:38] VITALS: BP 139/76; PULSE 70; RESP 16; TEMP 97.9; O2SAT 93
[2016-05-25] MEDS: traZODone HCL 100 MG TAB PO SCH (21:08)
[2016-05-25] MEDS: MIRTAZAPINE 15 MG TAB PO SCH (21:08)
[2016-05-25] MEDS: QUEtiapine FUMARATE 100 MG TAB PO SCH (21:08)
[2016-05-25] MEDS: LORazepam 0.5 MG TAB age > 65 yrs PO PRN (23:18)
[2016-05-26 06:10] VITALS: BP 123/55; PULSE 79; RESP 16; TEMP 97.9; O2SAT 94
[2016-05-26] MEDS: INSULIN ASPART SUPPLEMENTAL SCALE SQ SCH ×2 (07:00→11:00)
[2016-05-26] MEDS: POVIDONE IODINE 10% SOLN 480 ML BTL TOPICAL SCH (09:00)
[2016-05-26] MEDS: METOPROLOL TARTRATE 50 MG TAB PO SCH ×2 (09:00→20:52)
[2016-05-26] MEDS: clonazePAM 0.5 MG TAB PO SCH ×2 (09:00→20:51)
[2016-05-26] MEDS: PANTOPRAZOLE SOD 40 MG DELAYED RELEASE TAB PO SCH ×2 (09:14→20:51)
[2016-05-26] MEDS: POLYETHYLENE GLYCOL 17 GM PKG PO SCH (09:15)
[2016-05-26] MEDS: guaiFENesin E.R. 600 MG TAB PO SCH ×2 (09:15→20:52)
[2016-05-26] MEDS: DOCUSATE SODIUM 100 MG CAP PO SCH ×2 (09:15→20:52)
--- NOTE | 2016-05-26 11:35 | HHI.PYPN ---
Subjective Remarks Patient was seen today for psychiatric reevaluation, patient was found eating her breakfast, calm, cooperative, a little bit irritable, patient states that she has been feeling much better, she is now ready to be discharged, she express understanding of the importance of the compliant with medication and follow-up with psychiatrist in outpatient basis, however she expresses disagreement with her son in going to [facility] once discharged to continue her psychiatric treatment as an outpatient and pursuing housing there. She things that she has everything she wants at she needs here in [place] and she is adult enough to take her around decisions. Patient is fully oriented 3, no attention deficit, no fluctuation of consciousness, no gross cognitive impairment observed. Review of Systems Other No complaint Objective Alert: Yes [place]: Person, Place, Date, Situation Mood: Calm Affect: Euthymic Memory Intact: Immediate, Recent, Remote Hallucinations: Other (denies) Delusions: No Delusion Type: Other (none) Suicidal: Ideation (she denies) Homicidal: Ideation (she denies) Insight/Judgement good Vitals/IOs Vital Signs Date Time Temp Pulse Resp B/P Pulse Ox O2 Delivery O2 Flow Rate FiO2 05/26/16 06:10 97.9 79 16 123/55 94 05/25/16 21:23 Room Air 05/25/16 07:31 21 05/23/16 21:00 2.00 Intake and Output 05/25/16 05/25/16 05/26/16 08:00 16:00 00:00 Intake Total 240 ml 840 ml 620 ml Balance 240 ml 840 ml 620 ml Assessment & Plan Problem List: (1) Major depressive disorder, recurrent, severe with psychotic features Assessment & Plan: No changes in psychotropics, support, motivation psycho education provided. ICD Code: F33.3 Assessment & Plan Estimated LOS: days Justification for Cont. Inpt. In the process of coordinating safe discharge planning. Dwayne Wong MD May 26, 2016 11:34
[2016-05-26] MEDS: SKIN TEST RESULT XX SCH (12:00)
--- NOTE | 2016-05-26 13:58 | HHI.PR ---
Subjective Remarks Follow up on UGIB, DM, HTN and aspiration PNA, Left heel blister. Patient seen today. States she is doing well. On RA. Offer no complaints. Denies pain and discomfort. Denies SOB/ dyspnea. Denies chest pain, palpitations, headaches, dizziness. Denies fevers, chills, n/v/d. Objective Vitals Vital Signs Date Time Temp Pulse Resp B/P Pulse Ox O2 Delivery O2 Flow Rate FiO2 05/26/16 06:10 97.9 79 16 123/55 94 05/25/16 21:23 93 Room Air 05/25/16 17:38 97.9 70 16 139/76 93 I/O 05/25/16 05/25/16 05/25/16 05/26/16 05/26/16 05/26/16 07:00 15:00 23:00 07:00 15:00 23:00 Intake Total 240 ml 840 ml 620 ml 120 ml 480 ml Balance 240 ml 840 ml 620 ml 120 ml 480 ml Intake Oral 240 ml 840 ml 620 ml 120 ml 480 ml # Voids 1 1 1 Objective Remarks GENERAL: This is a well-nourished, well-developed patient, in no apparent distress- alert and oriented to person and place appears to be a poor historian SKIN: Scattered ecchymosis bilateral upper extremities. Left heel blister improving. HEAD: Atraumatic. Normocephalic. No temporal or scalp tenderness. EYES: Extraocular motions intact. No scleral icterus. No injection or drainage. CARDIOVASCULAR: Regular rate and rhythm without murmurs, gallops, or rubs. RESPIRATORY: clear to auscultation bilaterally. GASTROINTESTINAL: Abdomen soft, non-tender, nondistended. MUSCULOSKELETAL: Extremities without clubbing, cyanosis, or edema. No joint tenderness, effusion, or edema noted. No calf tenderness. NEUROLOGICAL: Awake and alert. No focal deficits appreciated. Motor and sensory grossly within normal limits. Normal speech. Procedures none A/P Problem List: (1) Depression ICD Code: F32.9 Status: Acute (2) Acute kidney injury ICD Code: N17.9 Status: Acute (3) GI bleeding ICD Code: K92.2 Status: Resolved (4) Dyslipidemia ICD Code: E78.5 Status: Chronic (5) Hypertension ICD Code: I10 Status: Chronic (6) Respiratory failure, acute ICD Code: J96.00 Status: Resolved Assessment and Plan This is an 80-year-old female patient with a past medical history which includes severe depression and suicide attempts 7, hypertension, dyslipidemia, GERD, diabetic diet which patient reports is diet controlled. Patient initially presented to the hospital on 05/12/2016 after an attempted suicide attempt with overdose she was found nonresponsive with coffee-ground emesis on her shirt and around her mouth and nose. She was intubated for airway protection by EMS and admitted to ICU. UDS positive only for opiates extubated to 05/14/2016. Currently admitted to inpatient psychiatric center with consulted for assistance with ongoing medical management. Severe depression with attempted suicide management per psychiatric team Upper GI bleed patient's son has refused EGD Continue PPI twice a day Hemoglobin appears stable No signs of bleeding at this time Aspiration pneumonia patient has received vancomycin Zosyn and Unasyn IV discontinue on Unasyn Completed Augmentin Blood cultures Staph Hominis in one of 2 bottles, no growth 4 days in the other bottle, ID consulted CXR ordered showing minimal bibasilar subsegmental atelectasis lasix 20 mg PO x 1 given Mucinex po BID Encourage use of IS at the bedside PT eval/tx No leukocytosis WBC 7.2 on CBC 05/19/16 Duonebs every 6 hours and when necessary Titrate oxygen to maintain saturation above 92% - wean off to room air. On room air on exam Diabetes hemoglobin A1C 5.9 good control with blood sugars not requiring insulin DC Accu-Cheks before meals at bedtime was low-dose sliding scale coverage Diabetic diet TUNG, on CKD avoid nephrotoxic agents Elevated creatinine - 1.49 -> 1.52 -> 1.57 --> 1.75 --> 1.58 05/21/16 Back to baseline 1.4-1.5 creatinine Hypertension - controlled continue patient's home metoprolol 50 mg every 12 hours Monitor blood pressure trend Constipation bowel regimen last BM 3/ MOM dose now Miralax daily to follow continue on po Colace daily Overactive bladder - previously on Myrbetriq. Will hold off use secondary to elevated creatinine. Left heel blister - drained. Iodine swab daily. Off load pressure. Cover with dsg -Improving. DVT prophylaxis early ambulation PT consulted unable to use SCDs as patient is inpatient psychiatric center. May use teds unable to use chemical anticoagulation as patient with recent GI bleed Discussed plan of care with patient, nursing Patient medically stable for DC recommend patient follow up with PCP after DC Written by Keisha Laboy, acting as scribe for Dr. Sanders on 05/26/16 at 13: 57. All or portions of this note were transcribed by scribe [Keisha Laboy PA-C]. I, Dr. Petar Sanders personally performed the history, physical exam, and medical decision making; and confirmed the accuracy of the information in the transcribed note. Authenticated by Dr. Petar Sanders on 05/26/16 at 13:57. Problem Qualifiers (1) Depression: Keisha Laboy May 26, 2016 13:58 Kathie Sanders DO May 26, 2016 23:58
[2016-05-26] MEDS ORDERED: PANT40TA3 PO (14:01)
[2016-05-26 16:47] LABS: NIL RESULT 0.03 IU/mL (()); QUANTIFERON TB GOLD RESULT Negative (Negative)
[2016-05-26 17:56] VITALS: BP 117/67; PULSE 72; RESP 16; TEMP 98; O2SAT 95
[2016-05-26] MEDS: QUEtiapine FUMARATE 100 MG TAB PO SCH (20:50)
[2016-05-26] MEDS: traZODone HCL 100 MG TAB PO SCH (20:51)
[2016-05-26] MEDS: MIRTAZAPINE 15 MG TAB PO SCH (20:52)
[2016-05-26] MEDS: ACETAMINOPHEN 325 MG TAB PO PRN (20:52)
[2016-05-27] MEDS: LORazepam 0.5 MG TAB age > 65 yrs PO PRN (03:36)
[2016-05-27 05:10] VITALS: BP 118/61; PULSE 70; RESP 16; TEMP 97.5; O2SAT 95
[2016-05-27] MEDS: METOPROLOL TARTRATE 50 MG TAB PO SCH (09:00)
[2016-05-27] MEDS: POVIDONE IODINE 10% SOLN 480 ML BTL TOPICAL SCH (09:00)
[2016-05-27] MEDS: PANTOPRAZOLE SOD 40 MG DELAYED RELEASE TAB PO SCH (09:00)
[2016-05-27] MEDS: POLYETHYLENE GLYCOL 17 GM PKG PO SCH (09:00)
[2016-05-27] MEDS: DOCUSATE SODIUM 100 MG CAP PO SCH (09:00)
[2016-05-27] MEDS: guaiFENesin E.R. 600 MG TAB PO SCH (09:00)
[2016-05-27] MEDS: clonazePAM 0.5 MG TAB PO SCH (09:00)
[2016-05-27] MEDS ORDERED: METO-309 PO (11:10)
--- NOTE | 2016-05-27 11:56 | HHI.PR ---
Subjective Remarks Follow up on UGIB, DM, HTN and aspiration PNA, Left heel blister. Patient seen today. States she is doing well. On RA. Offer no complaints. Denies pain and discomfort. Denies SOB/ dyspnea. Denies chest pain, palpitations, headaches, dizziness. Denies fevers, chills, n/v/d. Objective Vitals Vital Signs Date Time Temp Pulse Resp B/P Pulse Ox O2 Delivery O2 Flow Rate FiO2 05/27/16 05:10 97.5 70 16 118/61 95 05/27/16 02:44 95 Room Air 05/26/16 17:56 98.0 72 16 117/67 95 I/O 05/26/16 05/26/16 05/26/16 05/27/16 05/27/16 05/27/16 07:00 15:00 23:00 07:00 15:00 23:00 Intake Total 120 ml 960 ml 1200 ml 280 ml 720 ml Balance 120 ml 960 ml 1200 ml 280 ml 720 ml Intake Oral 120 ml 960 ml 1200 ml 280 ml 720 ml # Voids 1 1 2 Objective Remarks GENERAL: This is a well-nourished, well-developed patient, in no apparent distress- alert and oriented to person and place appears to be a poor historian SKIN: Scattered ecchymosis bilateral upper extremities. Left heel blister improving. HEAD: Atraumatic. Normocephalic. No temporal or scalp tenderness. EYES: Extraocular motions intact. No scleral icterus. No injection or drainage. CARDIOVASCULAR: Regular rate and rhythm without murmurs, gallops, or rubs. RESPIRATORY: clear to auscultation bilaterally. GASTROINTESTINAL: Abdomen soft, non-tender, nondistended. MUSCULOSKELETAL: Extremities without clubbing, cyanosis, or edema. No joint tenderness, effusion, or edema noted. No calf tenderness. NEUROLOGICAL: Awake and alert. No focal deficits appreciated. Motor and sensory grossly within normal limits. Normal speech. Procedures none A/P Problem List: (1) Depression ICD Code: F32.9 Status: Acute (2) Acute kidney injury ICD Code: N17.9 Status: Acute (3) GI bleeding ICD Code: K92.2 Status: Resolved (4) Dyslipidemia ICD Code: E78.5 Status: Chronic (5) Hypertension ICD Code: I10 Status: Chronic (6) Respiratory failure, acute ICD Code: J96.00 Status: Resolved Assessment and Plan This is an 80-year-old female patient with a past medical history which includes severe depression and suicide attempts 7, hypertension, dyslipidemia, GERD, diabetic diet which patient reports is diet controlled. Patient initially presented to the hospital on 05/12/2016 after an attempted suicide attempt with overdose she was found nonresponsive with coffee-ground emesis on her shirt and around her mouth and nose. She was intubated for airway protection by EMS and admitted to ICU. UDS positive only for opiates extubated to 05/14/2016. Currently admitted to inpatient psychiatric center with consulted for assistance with ongoing medical management. Severe depression with attempted suicide management per psychiatric team Upper GI bleed patient's son has refused EGD Continue PPI twice a day Hemoglobin appears stable No signs of bleeding at this time Aspiration pneumonia patient has received vancomycin Zosyn and Unasyn IV discontinue on Unasyn Completed Augmentin Blood cultures Staph Hominis in one of 2 bottles, no growth 4 days in the other bottle, ID consulted CXR ordered showing minimal bibasilar subsegmental atelectasis lasix 20 mg PO x 1 given Mucinex po BID Encourage use of IS at the bedside PT eval/tx No leukocytosis WBC 7.2 on CBC 05/19/16 Duonebs every 6 hours and when necessary Titrate oxygen to maintain saturation above 92% - wean off to room air. On room air on exam Diabetes hemoglobin A1C 5.9 good control with blood sugars not requiring insulin DC Accu-Cheks before meals at bedtime was low-dose sliding scale coverage Diabetic diet TUNG, on CKD avoid nephrotoxic agents Elevated creatinine - 1.49 -> 1.52 -> 1.57 --> 1.75 --> 1.58 05/21/16 Back to baseline 1.4-1.5 creatinine Hypertension - controlled continue patient's home metoprolol 50 mg every 12 hours Monitor blood pressure trend Constipation bowel regimen last BM 3/ MOM dose now Miralax daily to follow continue on po Colace daily Overactive bladder - previously on Myrbetriq. Will hold off use secondary to elevated creatinine. Left heel blister - drained. Iodine swab daily. Off load pressure. Cover with dsg -Improving. DVT prophylaxis early ambulation PT consulted unable to use SCDs as patient is inpatient psychiatric center. May use teds unable to use chemical anticoagulation as patient with recent GI bleed Discussed plan of care with patient, nursing and Dr. Sanders Patient medically stable for DC recommend patient follow up with PCP after DC Problem Qualifiers (1) Depression: Keisha Laboy May 27, 2016 11:56 Kathie Sanders DO May 27, 2016 23:24
[2016-05-27] MEDS: SKIN TEST RESULT XX SCH (12:00)
[2016-05-27] MEDS ORDERED: CLON.5 PO (12:20)
[2016-05-27] MEDS ORDERED: TRAZ50TA12 PO (12:20)
[2016-05-27] MEDS ORDERED: QUET1TAB8 PO (12:20)
[2016-05-27] MEDS ORDERED: MIRTA15 PO (12:20)
[2016-05-27] MEDS ORDERED: CLON0.5T PO (12:25)
[2016-05-27] MEDS ORDERED: SERO100T PO (12:26)
[2016-05-27] MEDS ORDERED: REME45TA PO ×2 (12:27→13:13)
[2016-05-27] MEDS ORDERED: TRAZ100T4 PO (13:13)
--- NOTE | 2016-05-27 13:24 | HHI.DS ---
Psychiatry Discharge Summary Inpatient Psychiatric care?: Yes Advance Directive: No Reason Not Provided: Due to Patient Condition Mental Health AdvanceDirective: No Health Care Proxy: No Admission Admission Date May 15, 2016 at 15:23 Admission Diagnosis: (1) Major depressive disorder, recurrent, severe with psychotic features ICD Code: F33.3 Brief History 05/15/2016: The patient is a 80-year-old woman, domiciled alone in [place], divorce, she has 2 kids, retired, with psychiatric history of depression, bipolar disorder, borderline personality disorder, opiate dependence , numerous hospitalizations, last hospitalization was here at [place] a year ago , records were reviewed, 6 previous attempts, poor impulse control, conflict in relationships, medical history of diabetes, GERD, hypertension,who presented to the ER brought in by EMS because she had missed an appointment and her psychiatrist was concerned and sent EMS to evaluate her at home. She was found unresponsive with coffee-ground emesis on her shirt and around her mouth and nose. She was intubated for airway protection by EMS and is admitted to ICU now with a diagnosis of aspiration pneumonia, acute respiratory failure, acute renal injury. Patient consulted a psychiatrist to assess suicidal attempt. At the moment of the psychiatric evaluation patient was sedated, sleeping, unable to be awake and unable to cooperate with the psychiatric assessment. However, I had a long conversation with her son Timmy, , who states that her mother has attempted to commit suicide about 6 times in the last 1-2 years. He says that this time she has told him that she just wanted to end it all. He doesn't know the circumstances that may her mother depressed, but he says that she is very impulsive, has conflicted relationships, and he is strongly thinking that she is depressed for some reason but she minimizes her depression he is strongly thinking that her mother is going to end up committing suicide if she is not institutionalized. He is very sure that she is not taking her medication and she is not getting an appropriate outpatient psychiatric care. He wants to meet with bilingual social worker to start working in discharging his mother, at least to a partial hospitalization institution. : Patient was seen today for reevaluation, she was found calm, cooperative and pleasant. Patient explains that today she feels much better, her mood is "reasonable improved since yesterday". She says that in a scale of 1to 10, mood today is 5. She says that "this has been the story is my life in the last 10 years, being okay now, perfectly fine, and hours later, without the reason becoming very depressed and wanting to end my life". Patient explained that her last suicidal attempt was with a genuine intention to . She says that she doesn't want to , but at the same time she cannot control her impulses and her obsessiveness when they emerge in her mind. Patient stated that she has been taking every medication possible in the past, she has been about 3 times in ECT treatment without any significant success. She endorses motivation to engage in a psychotropic regimen that could potentially help her, she is also open for psychotherapy. She has been treated in the community by nurse practitioner Ms. Martinez, she has been treated with trazodone 100 mg, Wellbutrin 150 mg , clonazepam 0.5 mg twice a day. She reports partial compliance with medication. At this moment she denies SI, HI, visual and auditory hallucinations. Patient is fully oriented 3. Tobacco Use In Past 30 Days: No Tobacco Past 30 Days Alcohol Use: Never Hospital Course Patient was admitted in the med psych floor coming from the medical floor, at the beginning of the hospitalization patient was depressed, suicidal ideation, no intention or plan, she was started Remeron 15 mg, trazodone 50 mg and Seroquel 50 mg at bedtime, she was evaluated by the multidisciplinary team, psychosocial assessment was performed by bilingual social worker. She showed a good response to psychotropic and psychotherapy. She was seen by medical team for underlying medical conditions. During his stay in the psychiatric unit bilingual social worker and myself contacted several times HER two sons Timmy and Marc to coordinate a safe discharge and collaborate with needed information. Medication was titrated as needed until reaching a therapeutic dose. No side effects were reported, during this hospitalization patient was usually calm, cooperative, at times she was demanding and confrontative, at some point she wanted to go back to her house, but finally agreed that she would go to [place] to a [facility] contacted by her son. At the moment of discharge patient denies depressive symptoms, anxiety, eze, psychosis, suicidal or homicidal ideation. Results Blood Pressure 118 / 61 Vital Signs Date Time Temp Pulse Resp B/P Pulse Ox O2 Delivery O2 Flow Rate FiO2 05/27/16 05:10 97.5 70 16 118/61 95 05/27/16 02:44 Room Air 05/25/16 07:31 21 05/23/16 21:00 2.00 Review Summary of Procedures None Imaging Last Impressions Chest X-Ray 05/18/16 0000 Signed Impressions: Service Date/Time: Wednesday, May 18, 2016 08:57 - CONCLUSION: 1. Minimal bibasilar subsegmental atelectasis. Zander Floyd MD Pending results at discharge: No Medications # of Antipsychotic meds at D/C: 1 Appropriate >1 Antipsych meds?: 1 Approp Antipsych med options 1 - Minimum of three failed multiple trials of monotherapy. 2 - Documented plan to taper to monotherapy due to previous use of multiple meds OR cross-taper in progress at D/C. 3 - Documentation of augmentation of Clozapine. 4 - Justification other than those listed in allowable values 1-3, document here : Discharge Discharge Date: May 27, 2016 Discharge Diagnosis: (1) Major depressive disorder, recurrent, severe with psychotic features ICD Code: F33.3 Mental Status Exam at Disch Elderly woman, age appearing, good hygiene, [facility], she is calm, but irritable, cooperative, her speech is fluent and spontaneous, her mood is "okay", affect is labile, thought process is logical, coherent and relevant, thought process is devoid of suicidal ideation, homicidal ideation, visual and auditory hallucinations. Her insight, thought processes and judgment are good, her cognition is intact. Pt Condition on Discharge: Stable Discharge Disposition: Discharge to SNF Discharge Instructions Diet Instructions: Diabetic Diet Activities you can perform: Regular-No Restrictions Scheduled Appointment: Facility mental health provider Appointment Date: Jun 01, 2016 Appointment Time: 08:00am Discharge Time > 30 minutes Discharge/Advance Care Plan Health Problems: (1) Major depressive disorder, recurrent, severe with psychotic features Goals to promote your health * To prevent worsening of your condition and complications * To maintain your health at the optimal level Directions to meet your goals Take your medications as prescribed Follow your dietary instruction Follow activity as directed Keep your appointments as scheduled Take your immunizations and boosters as scheduled If your symptoms worsen call your PCP, if no PCP go to Urgent Care Center or Emergency Room For 12/10 questions related to your inpatient stay or results of tests pending at discharge, please contact Dr. Dwayne Wong at Smoking is Dangerous to Your Health. Avoid second hand smoking Dwayne Wong MD May 27, 2016 13:23
== END 2016-05-27 14:45 | DRG 885 ==
LOC: H4EA 15:23
PROVIDERS: ADMIT Psychiatry & Neurology Psychiatry; ATTEND Psychiatry & Neurology Psychiatry
DX: F33.3 Major depressive disorder, recurrent, severe with psychotic symptoms (principal); J69.0 Pneumonitis due to inhalation of food and vomit; N17.9 Acute kidney failure, unspecified; E11.9 Type 2 diabetes mellitus without complications; K21.9 Gastro-esophageal reflux disease without esophagitis; E78.5 Hyperlipidemia, unspecified; I12.9 Hypertensive chronic kidney disease with stage 1 through stage 4 chronic kidney disease, or unspecified chronic kidney disease; N18.9 Chronic kidney disease, unspecified; K59.00 Constipation, unspecified; N32.81 Overactive bladder; S90.822A Blister (nonthermal), left foot, initial encounter; X58.XXXA Exposure to other specified factors, initial encounter
CPT/HCPCS: 71010; 80048; 80061; 82948; 83036; 85007; 85025; 85027; 86480; 94150; 94640; 94664; J0295; J7030